=== PATIENT | female | born 1950 | race African-American/Black ===

== ENCOUNTER → 2018-01-23 | Day surgery (SDC) | payer MEDICARE ==
[2018-01-22 11:57] LABS: BASOPHILS % 0.5 % (0.0-1.0); EOSINOPHILS # (AUTO) 0.1 (0.0-0.4); EOSINOPHILS % 0.9 % (0.0-6.0); HEMATOCRIT 44.5 % (34.2-44.1); HEMOGLOBIN 13.6 g/dL (12.0-16.0); LYMPHOCYTES # (AUTO) 2.2 (1.0-3.2); LYMPHOCYTES % 33.3 % (18.0-39.1); MEAN CORPUSCULAR HEMOGLOBIN 27.3 pg (28-32); MEAN CORPUSCULAR HGB CONC 30.6 g/dL (31-35); MEAN CORPUSCULAR VOLUME 89.2 fL (81-99); MONOCYTES # (AUTO) 0.6 (0.2-0.8); MONOCYTES % 8.7 % (4.4-11.3); NEUTROPHILS # (AUTO) 3.7 (2.1-6.9); NEUTROPHILS % 56.4 % (38.7-80.0); PLATELET COUNT 257 x10e3/uL (140-360); RED BLOOD COUNT 4.99 x10e6/uL (3.6-5.1)
[2018-01-22 12:23] LABS: INR 0.93; PROTHROMBIN TIME 13.3 seconds (11.9-14.5)
[2018-01-22 12:24] LABS: PARTIAL THROMBOPLASTIN TIME 37.2 seconds (23.8-35.5)
--- NOTE | 2018-01-22 12:28 | Diagnostic Imaging Report ---
EXAMINATION: CHEST 2 VIEWS INDICATION: Chest pain. Preop for heart catheterization COMPARISON: None FINDINGS: TUBES and LINES: None. LUNGS: Lungs are well inflated. Mild chronic appearing changes in the lungs. There is no evidence of pneumonia or pulmonary edema. PLEURA: No pleural effusion or pneumothorax. HEART AND MEDIASTINUM: Cardiomegaly. Tortuous thoracic aorta. BONES AND SOFT TISSUES: No acute osseous lesion. Soft tissues are unremarkable. UPPER ABDOMEN: No free air under the diaphragm. IMPRESSION: Cardiomegaly with mild chronic appearing changes in the lungs. Signed by: Dr. Fidel Jordan M.D. on 01/22/2018 12:25 PM
[2018-01-22 12:37] LABS: ALANINE AMINOTRANSFERASE 19 IU/L (0-55); ALBUMIN 3.9 g/dL (3.5-5.0); ALKALINE PHOSPHATASE 121 IU/L (40-150); ANION GAP 16.6 mmol/L (8-16); BLOOD UREA NITROGEN 19 mg/dL (7-26); BUN/CREATININE RATIO 18 (6-25); CALCIUM 9.8 mg/dL (8.4-10.2); CARBON DIOXIDE 26 mmol/L (22-29); CHLORIDE 100 mmol/L (98-107); CREATININE, SERUM 1.04 mg/dL (0.57-1.11); EST GLOMERULAR FILTRATION RATE > 60 ML/MIN (60-); GLUCOSE 99 mg/dL (74-118); POTASSIUM 3.6 mmol/L (3.5-5.1); SODIUM 139 mmol/L (136-145)
[2018-01-23] VITALS (24 sets, daily range): BP systolic 105–163; BP diastolic 67–95
[~2018-01-23] VITALS: Ht 162.6 cm; Wt 82.6 kg
[~2018-01-23] MED LIST: AMLODIPINE BESYL5 MG PO; ASPIR 8181 MG PO; ATORVASTATIN CA20 MG PO; BENZOCAINE 20% SPR 60 ML CAN ONE; FENTANYL CITRATE/PF 100MCG/2 ML INJ ONE; FUROSEMIDE40 MG PO; HEPARIN SOD/SOD CHLORIDE 2,000 ML ONE; IOPAMIDOL 370 MG/ML 200 ML INFUS..BTL INJ ONE; LEVOTHYROXINE75 MCG PO; LIDOCAINE HCL 2% LOCAL 20 ML VIAL ONE; LIDOCAINE HCL 2% LOCAL INJ 5 ML SDV VIAL INJ ONE; LISINOPRIL10 MG PO; METOPROLOL SUCC50 MG PO; MIDAZOLAM HCL 2 MG/2 ML VIAL ONE; POTASSIUM CHLO20 ME1 PO; PROPOFOL IV EMULSION 10 MG/ML 20 ML VIAL ONE; SODIUM CHLORIDE 0.9% 1000ML 1,000 ML ONE; ULTRAM50 MG PO; VITAMIN D250000 UNIT PO; [UNRECOGNIZED DRUG - OTHER] PO
--- OUTSIDE RECORDS SUMMARY | 2018-01-23 07:27 | XMS REPORT ---
Author [facility] Address Unknown Phone Unavailable Care Team Providers Care Toolroom Clerk Name Role Phone FOSTER ZAOMRA Unavailable Unavailable Problems This patient has no known problems. Allergies, Adverse Reactions, Alerts This patient has no known allergies or adverse reactions. Medications This patient has no known medications. Results Test Description Test Time Test Comments Text Results Atomic Results Result Comments CHEST 2 VIEWS 2018-01-22 12:24:00 [facility] [address] [address] Patient Name: BATSHEVA LOPEZ MR #: [id number] : 1950 Age/Sex: 67/F Req #: [id number] Adm Physician: Ordered by: FOSTER ZAMORA MD Report #: [id number] Location: [facility] Room/Bed: Procedure: [id number] DX/CHEST 2 VIEWS Exam Date: 01/22/18 Exam Time: 1200 REPORT STATUS: Signed EXAMINATION: CHEST 2 VIEWS INDICATION: Chest p ain. Preop for heart catheterization COMPARISON: None FINDINGS: TUBES and LINES: None. LUNGS: Lungs are well inflated. Mild chronic appearing changes in the lungs. There is no evidence of pneumonia or pulmonary edema. PLEURA: No pleural effusion or pneumothorax. HEART AND MEDIASTINUM: Cardiomegaly. Tortuous thoracic aorta. BONES AND SOFT TISSUES: No acute osseous lesion. Soft tissues are unremarkable. UPPER ABDOMEN: No free air under the diaphragm. IMPRESSION: Cardiomegaly with mild chronic appearing changes in the lungs. Signed by: Dr. Fidel Jordan M.D. on 01/22/2018 12:25 PM Dictated By: FIDEL JORDAN MD, MD 1225 Transcribed By: ERNST on 01/22/18 1225 COPY TO: FOSTER ZAMORA MD
--- OUTSIDE RECORDS SUMMARY | 2018-01-23 07:27 | XMS REPORT | Continuity of Care Document ---
Author Author [facility] Interface Address Unknown Phone Unavailable Problems Problem Status Onset Date Classification Date Reported Comments Source Cellulitis 03/27/2017 Diagnosis 03/28/2017 [facility] Streptococcal sore throat 06/13/2016 Diagnosis 06/13/2016 [facility] Cough 06/13/2016 Diagnosis 06/13/2016 [facility] Medications Medication Details Route Status Patient Instructions Ordering Provider Order Date Source Tenormin atenolol Active [facility] Clindamycin 300 MG Oral Capsule clindamycin HCl 300 mg capsule Take 1 capsule every 6 hours by oral route as directed for 7 days. Active [facility] Furosemide 20 MG Oral Tablet [Lasix] Lasix 20 mg tablet Take 1 tablet every day by oral route. Active [facility] levothyroxine levothyroxine Active [facility] Amoxicillin 500 MG Oral Capsule amoxicillin 500 mg capsule Take 1 capsule every 12 hours by oral route for 10 days. Active [facility] 200 ACTUAT Albuterol 0.09 MG/ACTUAT Metered Dose Inhaler [ProAir] ProAir HFA 90 mcg/actuation aerosol inhaler 2 puffs every 4 hours while awake for 2-3 days, then as needed Active [facility] Dextromethorphan Hydrobromide 3 MG/ML / Promethazine Hydrochloride 1.25 MG/ML Oral Solution promethazine-DM 6.25 mg-15 mg/5 mL syrup Take 5 mL EVERY 4-6 HOURS by oral route as needed for cough Active [facility] Allergies, Adverse Reactions, Alerts Substance Category Reaction Severity Reaction type Status Date Reported Comments Source Codeine Facial swelling Moderate to Severe Allergy to substance 06/13/2016 [facility] Immunizations Immunization Date Given Site Status Last Updated Comments Source influenza, seasonal, injectable 03/19/2016 completed [facility] Results Order Name Results Value Reference Range Date Interpretation Comments Source Influenza A negative 06/13/2016 [facility] Influenza B negative 06/13/2016 [facility] RESULT positive 06/13/2016 [facility] SWAB LOCATION Left and Right tonsillar pillars 06/13/2016 [facility] Vital Signs Vital Sign Value Date Comments Source Diastolic (mm Hg) 75 03/27/2017 [facility] Height 64 03/27/2017 [facility] Systolic (mm Hg) 125 03/27/2017 [facility] Weight 185 03/27/2017 [facility] Diastolic (mm Hg) 70 06/13/2016 [facility] Height 64 06/13/2016 [facility] Systolic (mm Hg) 130 06/13/2016 [facility] Weight 185 06/13/2016 [facility] Encounters Location Location Details Encounter Type Encounter Number Reason For Visit Attending Provider ADM Date DC Date Status Source [place] - [facility] - [id number] PAUL PetersC: [address] [place] [address], Ph. [id number] Janelle Almeida 06/13/2016 [facility] [place] [id number] PAUL DeckerC: [address] [place] [address], Ph. [id number] Johny Colon 03/27/2017 [facility] Procedures Procedure Code Date Perfomer Comments Source Hysterectomy [facility] Thyroidectomy [facility]
--- OUTSIDE RECORDS SUMMARY | 2018-01-23 07:27 | XMS REPORT | Encounter Summary ---
Author Organization Unknown Address [address] [place] [address] Phone [phone] Care Team Providers Care File System Installer Name Role Phone Geovanna Rahman 3 [phone] Reason for Visit Medical Complaint Instructions 1. Cellulitis clindamycin HCl 300 mg capsule Discussion Note monitor for increase signs of infection. Keep area clean and dry. Avoid touching the area. OTC tylenol/ibuprofen as needed for fever/pain. Stay hydrated and rest. If symptoms do not improve after completion of antibiotic or worsens sooner, please follow up with PCP/UC/ER within 3 days or sooner if needed. pt states she is having a left heart catheter procedure tomorrow. Instructed for pt to notify/contact director of maternity services before taking the OTC tylenol/ibuprofen and prescription antibiotic. discussed treatment plan and medication use. patient verbalized understanding and agrees with the plan. Patient educational handouts: No information available. Plan of Care Reminders Provider Appointments None recorded. Lab None recorded. Referral None recorded. Procedures None recorded. Surgeries None recorded. Imaging None recorded. Medications Name Start Date atenolol clindamycin HCl 300 mg capsule Take 1 capsule every 6 hours by oral route as directed for 7 days. Lasix 20 mg tablet Take 1 tablet every day by oral route. levothyroxine Medications Administered None recorded. Vitals Height Weight BMI Blood Pressure 5 ft 4 in 185 lbs 31.8 kg/m2 125/75 mm[Hg] Lab Results None recorded. Allergies Code Code System Name Reaction Severity Status Onset 2670 RxNorm Codeine Facial Swelling Moderate to Severe Active Problems None recorded. Procedures Date Name Performed by Hysterectomy Information not available Thyroidectomy Information not available Vaccine List Vaccine Type influenza, seasonal, injectable 03/19/2016 Social History Smoking Status Never Smoker Past Encounters 03/27/2017 Cellulitis PAUL DeckerC: [address] [place] [address], Ph. History of Present Illness Kplx-Bptiqsu-Cpali-Skin Lesion-Bite 1 Reported By: Patient HPI: Location: face. Quality: not itchy, painful, dry, tender, red, single, localized, swollen; "sore". Severity: worsening. Duration: has noted for <1 week. Onset/Timing: gradual onset. Context: no new detergents or skin products, no one else with similar rash, bite/sting exposure. Aggravating factors: nothing makes it worse. Alleviating factors: nothing gives relief; rubbing alcohol on the area. Associated Symptoms: no fever/chills, no muscle aches, no headache, no nausea, no vomiting, no diarrhea, no urinary symptoms, cold symptoms Review of Systems:ROS as noted in the HPI Review of Systems Basic Reported By: Patient Physical Exam Adult Basic, Adult Female Complete Reported By: Patient Constitutional: General Appearance: healthy-appearing, well-nourished, well-developed. Level of Distress: NAD. Ambulation: ambulating normally Psychiatric: Mental Status: active and alert. Orientation: to time, to place, to person Lungs: Respiratory effort: no dyspnea, no tachypnea, no use of accessory muscles, no intercostal retractions. Auscultation: breath sounds normal Cardiovascular: Heart Auscultation: RRR, no murmurs Neurologic: Gait and Station: normal gait, normal station Skin: Inspection and palpation: lesion
--- OUTSIDE RECORDS SUMMARY | 2018-01-23 07:27 | XMS REPORT | Encounter Summary ---
Author Organization Unknown Address [address] [place] [address] Phone [phone] Care Team Providers Care Mail Reader Name Role Phone Geovanna Rahman 3 [phone] Reason for Visit Medical Complaint Instructions 1. Streptococcal sore throat strep throat: care instructions rapid strep group A, throat rapid flu (A+B) amoxicillin 500 mg capsule 2. Cough cough: care instructions promethazine-DM 6.25 mg-15 mg/5 mL syrup ProAir HFA 90 mcg/actuation aerosol inhaler Discussion Note take charge of your health provided to pt with education and questions answered Plan of Care Patient Instructions FU with PCP if symptoms worsening or not improving. Reminders Provider Appointments None recorded. Lab Rapid Strep Group a, Throat 06/13/2016 [facility] Rapid Flu (A+B) 06/13/2016 [facility] Referral None recorded. Procedures None recorded. Surgeries None recorded. Imaging None recorded. Medications Name Start Date amoxicillin 500 mg capsule Take 1 capsule every 12 hours by oral route for 10 days. atenolol Lasix 20 mg tablet Take 1 tablet every day by oral route. levothyroxine ProAir HFA 90 mcg/actuation aerosol inhaler 2 puffs every 4 hours while awake for 2-3 days, then as needed promethazine-DM 6.25 mg-15 mg/5 mL syrup Take 5 mL EVERY 4-6 HOURS by oral route as needed for cough Medications Administered None recorded. Vitals Height Weight BMI Blood Pressure 5 ft 4 in 185 lbs 31.8 130/70 Lab Results Date Name Result Description Value Range Status Rapid Flu (A+B) Influenza a negative Influenza B negative Rapid Strep Group a, Throat Result positive Swab Location Left and Right tonsillar pillars Allergies Name Reaction Severity Onset Codeine Facial Swelling Moderate to Severe Problems None recorded. Procedures Date Name Performed by Hysterectomy Information not available Thyroidectomy Information not available Vaccine List Vaccine Type influenza, seasonal, injectable 03/18/2016 Social History Smoking Status Never Smoker Past Encounters 06/13/2016 Streptococcal Sore Throat; Cough Janelle Almeida PA-C: [address] [place] [address], Ph. History of Present Illness Cwwzx-Agvfbrxbdn-Qzierae Reported By: Patient HPI: Location: throat. Quality: sore throat, nasal/sinus congestion, hacking cough, dry cough. Duration: 2days. Onset/Timing: sudden. 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 Modifying factors: OTC medication. Associated Symptoms: no sputum production, no shortness of breath, no wheezing, no change in number of pillows needed to sleep at night, no sweats, no significant weight gain, no significant weight loss, no morning cough, no sore throat, no vomiting, no diarrhea, no rash, no nausea, no fever, no headache, chest pain, fever, muscle aches Review of Systems Basic Reported By: Patient Constitutional: Constitutional: fever Eyes: Eyes: no eye complaints Fhug-Xscx-Fpmjv-Throat: Ears: no ear complaints. Nose: nose/sinus problems. Mouth/Throat: sore throat Cardiovascular: Cardiovascular: no chest pain, no shortness of breath, no known heart murmur Respiratory: Respiratory: no shortness of breath, cough, wheezing Musculoskeletal: Musculoskeletal: no muscle weakness, no arthralgias/joint pain, no back pain, muscle aches Neurologic: Neurologic: no loss of consciousness, no weakness, no numbness, no seizures, no dizziness, headache Physical Exam Adult Basic Reported By: Patient Constitutional: General Appearance: healthy-appearing, well-nourished, well-developed. Level of Distress: NAD. Ambulation: ambulating normally Psychiatric: Mental Status: active and alert. Orientation: to time, to place, to person Eyes: Lids and Conjunctivae: non-injected, no discharge, no pallor. Pupils: PERRLA. Corneas: grossly intact. EOM: EOMI. Lens: clear. Sclerae: non-icteric. Vision: acuity grossly intact Wlo-Jbiw-Txsao-Throat: Ears: no lesions on external ear, no outer ear tenderness, EACs clear, TMs clear. Hearing: no hearing loss. Nose: no lesions on external nose, nares patent, no septal deviation, nasal passages clear, sinus tenderness, post nasal drip; inflamed nasal turbinates. Lips, Teeth, and Gums: no mouth or lip ulcers, no bleeding gums, normal dentition. Oropharynx: moist mucous membranes, no exudates, tonsils not enlarged, erythema Neck: Neck: supple, trachea midline, no masses, FROM. Lymph Nodes: no supraclavicular LAD, anterior cervical LAD. Thyroid: no enlargement, non-tender, no nodules Lungs: Respiratory effort: no dyspnea, no tachypnea, no use of accessory muscles, no intercostal retractions. Auscultation: breath sounds normal Cardiovascular: Heart Auscultation: RRR, no murmurs Neurologic: Gait and Station: normal gait, normal station
--- NOTE | 2018-01-23 17:40 | Cardiology Report ---
REFERRING PHYSICIAN: Maurice Guerrero MD DATE OF STUDY: January 23, 2018 PROCEDURE: Transesophageal echocardiogram. INDICATIONS: Mitral regurgitation. DESCRIPTION OF PROCEDURE: After informed consent, patient was brought to the TE suite. Throat was sprayed with Cetacaine spray. The patient was anesthetized by the anesthesiologist. Transesophageal probe was passed without any difficulty and images were obtained in the usual fashion. Patient tolerated the procedure without any complications. REPORT: 1. Left ventricle: Normal size with depressed systolic function. Overall estimated ejection fraction about 40%. 2. Left atrium: Appears to be dilated. No spontaneous echo contrast or thrombus seen in the left atrium or left atrial appendage. 3. Right atrium: Normal size. 4. Right ventricle: Is of normal size with mildly depressed systolic function. 5. Mitral valve: Structurally normal intact valve excursion. No vegetations seen on mitral valve leaflets. Moderate to severe mitral regurgitation is noted. 6. Aortic valve: Mildly thickened without valve excursion. No vegetations are seen on the tricuspid valve leaflets. No aortic regurgitation or stenosis noted. 7. Tricuspid valve: Structurally normal with aortic valve excursion. No vegetation is seen on tricuspid valve leaflets. Trace tricuspid regurgitation is noted. 8. Pulmonic valve: The view seen appears to be normal intact valve excursion. No vegetations are noted on the pulmonic valve leaflets. 9. There is no pericardial effusion noted. 10. No left or right shunt is seen on color flow. No right or left shunt is seen on contrast injection across the interatrial septum. 11. Aorta in the views seen no significant atherosclerotic plaquing at the aorta is noted. CONCLUSIONS 1. Left ventricle normal size with depressed systolic function. 2. The overall estimated ejection fraction is about 40%. 3. Moderate to severe mitral regurgitation is noted. 4. Trace tricuspid regurgitation is noted. 5. No intracardiac thrombi or vegetation noted. 6. No shunts noted. 7. No pericardial effusion is seen. Job#: [id number]
--- NOTE | 2018-01-28 13:49 | Operative Report ---
DATE OF PROCEDURE: January 23, 2018 PROCEDURES PERFORMED: 1. Left heart catheterization. 2. Selective coronary angiogram. 3. Left ventriculogram. 4. Right heart catheterization. 5. Cardiac output. 6. Saturations. INDICATIONS: Mitral regurgitation. BLOOD LOSS: 5 mL. ANESTHESIA: 2% lidocaine for local anesthesia, fentanyl and Versed for conscious sedation. DESCRIPTION OF PROCEDURE: After informed consent, patient was brought to the cardiac catheterization laboratory and placed on the table. Both groins were painted and draped in a sterile fashion. Lidocaine was injected in the right groin for local anesthesia. Right femoral artery was accessed by Seldinger technique, and a 5-Salvadorean sheath was placed in the right femoral artery. Left main artery was cannulated using a JL4, 5-Salvadorean catheter. Coronary angiogram was performed, and images were obtained in multiple views. The right artery was cannulated using a 3DRC 5-[place]vadorean catheter. Coronary angiogram was performed, and images were obtained in multiple views. LV-gram was performed using a pigtail catheter. The right femoral vein was already cannulated using the Seldinger technique, and a 7-Salvadorean sheath was placed in the right femoral vein. A [place]-Poli catheter was advanced through the sheath into the right side of the heart to the wedge position. Pressures and cardiac output and saturations were obtained. The catheter was gradually withdrawn, and pressure and saturations were obtained in the pulmonary artery, right ventricle, right atrium, and inferior vena cava. Patient tolerated the procedure without any complications. REPORT: LEFT MAIN: A small vessel, normal caliber and is free of disease. LEFT ANTERIOR DESCENDING: Is of normal caliber and has mild luminal irregularities. LEFT CIRCUMFLEX: Normal caliber and has mild luminal irregularities. RIGHT CORONARY ARTERY: Normal caliber and has luminal irregularities. LV-GRAM: Diffuse hyperkinesis of the left ventricle is noted. Overall ejection fraction is 40%. There was 3 to 4+ MR. PRESSURES: Aortic pressure is 147/65. LV pressure is 151/19. LVEDP is 31. Right atrial pressure is 20. Right ventricular pressure is 84/15. Pulmonary artery pressure is 32/36. Pulmonary capillary wedge pressure is 38. Cardiac output is 3.37. Cardiac index is 1.79. SATURATIONS: In the right atrium was 48%, right ventricle was 50%, pulmonary artery was 54%,, pulmonary capillary wedge saturation was 86%, inferior vena cava was 64%, FA saturation was 97%. Hemoglobin was 13.6. IMPRESSION: 1. Moderate to severe mitral regurgitation. 2. Moderate pulmonary hypertension. PLAN: Possible mitral valve replacement. Job#: [id number]
== END | disposition home or self-care (01) ==
LOC: CATH LAB 07:24
DX: I34.0 Nonrheumatic mitral (valve) insufficiency (principal); I07.1 Rheumatic tricuspid insufficiency; R07.2 Precordial pain; I11.0 Hypertensive heart disease with heart failure; I50.32 Chronic diastolic (congestive) heart failure; I27.20 Pulmonary hypertension, unspecified; E78.5 Hyperlipidemia, unspecified; E03.9 Hypothyroidism, unspecified; Z88.6 Allergy status to analgesic agent; Z01.810 Encounter for preprocedural cardiovascular examination; Z01.812 Encounter for preprocedural laboratory examination; Z01.818 Encounter for other preprocedural examination; Z79.82 Long term (current) use of aspirin; Z68.32 Body mass index [BMI] 32.0-32.9, adult; Z82.49 Family history of ischemic heart disease and other diseases of the circulatory system; Z82.3 Family history of stroke
CPT/HCPCS: 36415; 71046; 80053; 85025; 85610; 85730; 93005; 93312; 93320; 93325; 93460; C1766; J2001 ×2; J2250; J2704; J7030; Q9967

== ENCOUNTER 2018-03-10 08:37 | Observation (INO) | payer BC, MEDICARE ==
[~2018-03-10] VITALS: Ht 162.6 cm; Wt 91.6 kg
[~2018-03-10 08:37] MED LIST changes: -BENZOCAINE 20% SPR 60 ML CAN ONE; -FENTANYL CITRATE/PF 100MCG/2 ML INJ ONE; -HEPARIN SOD/SOD CHLORIDE 2,000 ML ONE; -IOPAMIDOL 370 MG/ML 200 ML INFUS..BTL INJ ONE; -LIDOCAINE HCL 2% LOCAL 20 ML VIAL ONE; -LIDOCAINE HCL 2% LOCAL INJ 5 ML SDV VIAL INJ ONE; -MIDAZOLAM HCL 2 MG/2 ML VIAL ONE; -PROPOFOL IV EMULSION 10 MG/ML 20 ML VIAL ONE; -SODIUM CHLORIDE 0.9% 1000ML 1,000 ML ONE; -ULTRAM50 MG PO
--- OUTSIDE RECORDS SUMMARY | 2018-03-10 08:40 | XMS REPORT | Clinical Summary ---
Author Author [facility]ud [facility] Organization [facility] Address Unknown Phone Unavailable Care Team Providers Care Log Truck Driver Name Role Phone Asked, No Pcp PCP Unavailable Allergies Comments Active Allergy Reactions Severity Noted Date Codeine Anaphylaxis, High 02/21/2018 Swelling Medications End Date Status Medication Sig Dispensed Refills Start Date Active aspirin (ECOTRIN) 81 MG Take 81 mg by 0 enteric coated tablet mouth daily. Active atorvastatin (LIPITOR) 40 Take 40 mg by 0 MG tablet mouth daily. Active ergocalciferol, vitamin Take 5,000 mg 0 D2, (VITAMIN D2 ORAL) by mouth daily. Active ipratropium-albuterol Inhale 2 0 (COMBIVENT RESPIMAT) puffs 4 20-100 mcg/actuation mist (four) times inhaler a day. Active levothyroxine (SYNTHROID, Take 75 mcg 0 LEVOXYL) 75 mcg tablet by mouth every morning. Active amLODIPine (NORVASC) 5 mg Take 5 mg by 0 tablet mouth daily. 04/04/2018 Active metoprolol tartrate Take 1 tablet 60 tablet 0 (LOPRESSOR) 25 mg tablet (25 mg total) 8 by mouth 2 (two) times a day for 30 days. 03/18/2018 Active HYDROcodone-acetaminophen Take 1 to 2 30 tablet 0 (NORCO) 5-325 mg per tabs every 6 8 tablet hours prn pain. 04/04/2018 Active furosemide (LASIX) 40 mg Take 1 tablet 30 tablet 0 tablet (40 mg total) 8 by mouth daily for 30 days. Active potassium chloride Take 2 60 capsule 0 (MICRO-K) 10 MEQ CR capsules (20 8 capsule mEq total) by mouth daily. 03/05/2018 Discontinued furosemide (LASIX) 40 mg Take 40 mg by 0 tablet mouth 2 (two) times a day. 03/05/2018 Discontinued POTASSIUM ORAL Take 20 mEq 0 by mouth 2 (two) times a day. 03/05/2018 Discontinued metoprolol succinate XL Take 100 mg 0 (TOPROL-XL) 100 mg 24 hr by mouth tablet daily. 03/05/2018 Discontinued losartan (COZAAR) 50 MG Take 50 mg by 0 tablet mouth daily. 03/05/2018 Discontinued ibuprofen (ADVIL,MOTRIN) Take 200 mg 0 200 MG tablet by mouth every 6 (six) hours as needed for mild pain. Active Problems Problem Noted Date Mitral valve stenosis 02/25/2018 Encounters Care Team Description Date Type Specialty Bin Dc MD MITRAL VALVE REPLACEMENT (EPIC 31 MM VALVE) 02/25/2018 Surgery Cardiothoracic Surgery Clair Fisher APRN 02/25/2018 Anesthesia Cardiothoracic Surgery Event Bin Dc MD Non-rheumatic mitral valve stenosis (Primary Dx); Mitral stenosis 02/25/2018 Hospital Cardiology - Encounter 03/05/2018 Ami Avila RN 02/22/2018 Documentation Cardiovascular Bin Dc MD 02/21/2018 Hospital Radiology Encounter Clair Fisher, Bin Lopez MD 02/21/2018 Hospital Pulmonology Encounter Bin Dc MD Pre-op testing (Primary Dx); Preop cardiovascular exam; Preop pulmonary/respiratory exam; Preop examination 02/21/2018 Pre-Admit Pre-Admission Testing Testing Appointment Bin Dc MD Preop cardiovascular exam (Primary Dx) 02/21/2018 Transcribe Access Orders after 03/09/2017 Social History Date Tobacco Use Types Packs/Day Years Used Never Smoker Smokeless Tobacco: Never Used Alcohol Use Drinks/Week oz/Week Comments Yes social Alcohol Habits Answer Date Recorded How often do you have a drink containing alcohol? Never 02/21/2018 How many drinks containing alcohol do you have on Not asked a typical day when you are drinking? How often do you have six or more drinks on one Not asked occasion? Sex Assigned at Date Recorded Not on file Industry Job Start Date Occupation Not on file Not on file Not on file Travel End Travel History Travel Start No recent travel history available. Last Filed Vital Signs Time Taken Vital Sign Reading 03/05/2018 11:37 AM ELEVATOR REPAIR MECHANIC Blood Pressure 112/53 03/05/2018 11:37 AM ELEVATOR REPAIR MECHANIC Pulse 79 03/05/2018 11:37 AM ELEVATOR REPAIR MECHANIC Temperature 36.4 C (97.6 F) 03/05/2018 11:37 AM ELEVATOR REPAIR MECHANIC Respiratory Rate 17 03/05/2018 11:37 AM ELEVATOR REPAIR MECHANIC Oxygen Saturation 92% - Inhaled Oxygen - Concentration 03/05/2018 4:31 AM ELEVATOR REPAIR MECHANIC Weight 91.8 kg (202 lb 4.8 oz) 02/25/2018 10:58 AM ELEVATOR REPAIR MECHANIC Height 162.6 cm (5' 4") 03/05/2018 4:31 AM ELEVATOR REPAIR MECHANIC Body Mass Index 34.72 Plan of Treatment Health Maintenance Due Date Last Done Comments CERVICAL CANCER SCREENING 1973 BREAST CANCER SCREENING 2002 COLON CANCER SCREENING 2002 SHINGLES VACCINES ( of 2002 2) PNEUMOCOCCAL 2017 POLYSACCHARIDE VACCINE AGE 65 AND OVER PNEUMOCOCCAL-13 2017 INFLUENZA VACCINE 10/17/2017 03/19/2016 Implants Device Identifier Shelf Expiration Date Model / Serial / Lot Implanted Type [place] Manufactur [place] 6500F / / Lead Pace Jimy Mycrdl Unipol Tmpry Cardiac N/A: N/A [employer] Streamline - [id number] Pacing [place] - Implanted: 02/25/2018 (Quantity not Leads or CARDIAC on file) Electrodes SRGRY or Accessorie s 6500F / / Lead Pace Jimy Mycrdl Unipol Tmpry Cardiac N/A: N/A [employer] Streamline - [id number] Pacing [place] - Implanted: 02/25/2018 (Quantity not Leads or CARDIAC on file) Electrodes SRGRY or Accessorie s 6500F / / Lead Pace Jimy Mycrdl Unipol Tmpry Cardiac N/A: N/A [employer] Streamline - [id number] Pacing [place] - Implanted: 02/25/2018 (Quantity not Leads or CARDIAC on file) Electrodes SRGRY or Accessorie s 04/17/2021 [id number] [id number] 00 / [id number] / [id number] Valve Mitral Stntd Tiss Annls W/ Cardiovasc N/A: N/A [facility] Linx Ac Tech 31mm Epic - [id number] ular STRUCTURAL Implanted: 02/25/2018 (Quantity not Implants HEART on file) [id number] / / Clip Shobha Barillas Hemoclip Plus W/ Medical N/A: N/A TELEFLEX Tape Ti Lg - [id number] Clips for MEDICAL Implanted: 02/25/2018 (Quantity not Internal on file) Use 08 [id number] / / Implant Strnl Zipfix W/ Ndl Peek - Surgical N/A: N/A SYNTHES [id number] Implants; MAXIOFACIA Implanted: 02/25/2018 (Quantity not Expanders; L IMPLANT on file) Extenders; Surgical Wires 11/13/2022 [id number] / / [id number] [place] Perph Vasclr Ptfe 1.2x10cm Vascular N/A: N/A BARD 1.65mm - [id number] Graft PERIPHERAL Implanted: 02/25/2018 (Quantity not VASCULAR on file) 11/13/2022 [id number] / / [id number] [place] Perph Vasclr Ptfe 1.2x10cm Vascular N/A: N/A BARD 1.65mm - [id number] Graft PERIPHERAL Implanted: 02/25/2018 (Quantity not VASCULAR on file) Procedures Comments Procedure Name Priority Date/Time Associated Diagnosis HC COMPLETE BLD COUNT Routine 03/05/2018 W/AUTO DIFF 5:24 AM ELEVATOR REPAIR MECHANIC ESTIMATED GFR Routine 03/05/2018 4:00 AM ELEVATOR REPAIR MECHANIC IONIZED CALCIUM Routine 03/05/2018 4:00 AM ELEVATOR REPAIR MECHANIC PHOSPHORUS LEVEL Routine 03/05/2018 4:00 AM ELEVATOR REPAIR MECHANIC MAGNESIUM LEVEL Routine 03/05/2018 4:00 AM ELEVATOR REPAIR MECHANIC COMPREHENSIVE METABOLIC Routine 03/05/2018 PANEL 4:00 AM ELEVATOR REPAIR MECHANIC HC COMPLETE BLD COUNT Routine 03/04/2018 W/AUTO DIFF 8:30 AM ELEVATOR REPAIR MECHANIC ESTIMATED GFR Routine 03/04/2018 4:00 AM ELEVATOR REPAIR MECHANIC IONIZED CALCIUM Routine 03/04/2018 4:00 AM ELEVATOR REPAIR MECHANIC PHOSPHORUS LEVEL Routine 03/04/2018 4:00 AM ELEVATOR REPAIR MECHANIC MAGNESIUM LEVEL Routine 03/04/2018 4:00 AM ELEVATOR REPAIR MECHANIC COMPREHENSIVE METABOLIC Routine 03/04/2018 PANEL 4:00 AM ELEVATOR REPAIR MECHANIC POC GLUCOSE Routine 03/03/2018 8:15 AM ELEVATOR REPAIR MECHANIC POC GLUCOSE Routine 03/02/2018 8:25 PM ELEVATOR REPAIR MECHANIC POC GLUCOSE Routine 03/02/2018 5:06 PM ELEVATOR REPAIR MECHANIC POC GLUCOSE Routine 03/02/2018 11:53 AM ELEVATOR REPAIR MECHANIC POC GLUCOSE Routine 03/02/2018 8:00 AM ELEVATOR REPAIR MECHANIC CBC HEMOGRAM Routine 03/02/2018 5:45 AM ELEVATOR REPAIR MECHANIC ESTIMATED GFR Routine 03/02/2018 5:40 AM ELEVATOR REPAIR MECHANIC BASIC METABOLIC PANEL Routine 03/02/2018 5:40 AM ELEVATOR REPAIR MECHANIC POC GLUCOSE Routine 03/01/2018 9:03 PM ELEVATOR REPAIR MECHANIC ECHOCARDIOGRAM 2D Routine 03/01/2018 COMPLETE W MMODE SPECTRAL 3:57 PM ELEVATOR REPAIR MECHANIC COLOR DOPPLER ([id number]) POC GLUCOSE Routine 03/01/2018 12:24 PM ELEVATOR REPAIR MECHANIC ESTIMATED GFR Routine 03/01/2018 2:24 AM ELEVATOR REPAIR MECHANIC BASIC METABOLIC PANEL Routine 03/01/2018 2:24 AM ELEVATOR REPAIR MECHANIC HC COMPLETE BLD COUNT Routine 03/01/2018 W/AUTO DIFF 2:10 AM ELEVATOR REPAIR MECHANIC POC GLUCOSE Routine 02/28/2018 9:42 PM ELEVATOR REPAIR MECHANIC POC GLUCOSE Routine 02/28/2018 6:02 PM ELEVATOR REPAIR MECHANIC POC GLUCOSE Routine 02/28/2018 12:56 PM ELEVATOR REPAIR MECHANIC POC GLUCOSE Routine 02/28/2018 7:41 AM ELEVATOR REPAIR MECHANIC HC COMPLETE BLD COUNT Routine 02/28/2018 W/AUTO DIFF 4:58 AM ELEVATOR REPAIR MECHANIC ESTIMATED GFR Routine 02/28/2018 4:00 AM ELEVATOR REPAIR MECHANIC MAGNESIUM LEVEL Routine 02/28/2018 4:00 AM ELEVATOR REPAIR MECHANIC BASIC METABOLIC PANEL Routine 02/28/2018 4:00 AM ELEVATOR REPAIR MECHANIC POC GLUCOSE Routine 02/27/2018 8:49 PM ELEVATOR REPAIR MECHANIC POC GLUCOSE Routine 02/27/2018 5:49 PM ELEVATOR REPAIR MECHANIC US RENAL Routine 02/27/2018 5:20 PM ELEVATOR REPAIR MECHANIC SODIUM LEVEL, URINE, Routine 02/27/2018 TIMED 3:30 PM ELEVATOR REPAIR MECHANIC CREATININE LEVEL, URINE, Routine 02/27/2018 TIMED 3:30 PM ELEVATOR REPAIR MECHANIC UREA NITROGEN, URINE, Routine 02/27/2018 TIMED 3:30 PM ELEVATOR REPAIR MECHANIC URINE EOSINOPHILS Routine 02/27/2018 3:30 PM ELEVATOR REPAIR MECHANIC URINALYSIS SCREEN AND Routine 02/27/2018 MICROSCOPY, WITH REFLEX 3:30 PM ELEVATOR REPAIR MECHANIC TO CULTURE GRAM STAIN Routine 02/27/2018 3:30 PM ELEVATOR REPAIR MECHANIC URINE CULTURE Routine 02/27/2018 3:30 PM ELEVATOR REPAIR MECHANIC XR CHEST 1 VW PORTABLE Routine 02/27/2018 3:00 PM ELEVATOR REPAIR MECHANIC ESTIMATED GFR Routine 02/27/2018 1:02 PM ELEVATOR REPAIR MECHANIC BASIC METABOLIC PANEL Routine 02/27/2018 1:02 PM ELEVATOR REPAIR MECHANIC POC GLUCOSE Routine 02/27/2018 12:04 PM ELEVATOR REPAIR MECHANIC ANESTHESIA TELLY Routine 02/27/2018 9:12 AM ELEVATOR REPAIR MECHANIC Procedure Note - Cinthia Garcia CRNA - 02/27/2018 9:12 AM ELEVATOR REPAIR MECHANIC Procedure Performed: TELLY Start Time: 02/25/2018 3:15 PM End Time: 02/25/2018 3:45 PM Preanesth esia Checklist: Patient identified , IV assessed, risks and benefits discussed, monitors and equipment assessed, procedure being performed at surgeon's request, anesthesia consent obtained. General Procedure Informatio n Diagnostic Indication s for Echo: assessment of surgical repair and hemodynami c monitoring Physician Requesting Echo: Bin Dc MD Location performed: OR Intubated Bite block placed Heart visualized Probe Insertion: Easy Probe Type: Multiplane Modalities : Color flow mapping, pulse wave Doppler, continuous wave Doppler and contrast Echocardi ographic and Doppler Measuremen ts Ventricle s Right Ventricle: Cavity size dilated. Hypertroph y not present. Thrombus not present. Global function mildly impaired. Ejection Fraction 45%. Left Ventricle: Cavity size normal. Hypertroph y present. Thrombus not present. Global Function mildly impaired. Ejection Fraction 40%. Ventricul ar Regional Function: 1- Basal Anterosept al: hypokineti c 2- Basal Anterior: hypokineti c 3- Basal Anterolate ral: hypokineti c 4- Basal Inferolate ral: normal 5- Basal Inferior: normal 6- Basal Inferosept al: normal 7- Mid Anterosept al: hypokineti c 8- Mid Anterior: hypokineti c 9- Mid Anterolate ral: hypokineti c 10- Mid Inferolate ral: normal 11- Mid Inferior: normal 12- Mid Inferosept al: normal 13- Apical Anterior: normal 14- Apical Lateral: normal 15- Apical Inferior: normal 16- Apical Septal: normal 17- [place]: normal Valves Aortic Valve: Annulus normal. Stenosis not present. Regurgitat ion absent. Leaflets normal. Leaflet motions normal. Mitral Valve: Annulus dilated. Stenosis not present. Regurgitat ion +3. Leaflets thickened. Leaflet motions normal. Tricuspid Valve: Annulus normal. Stenosis not present. Regurgitat ion +2. Leaflets normal. Leaflet motions normal. Pulmonic Valve: Annulus normal. Stenosis not present. Regurgitat ion absent. Aorta Ascending Aorta: Size normal. Dissection not present. Plaque thickness less than 3 mm. Mobile plaque not present. Aortic Arch: Size normal. Dissection not present. Plaque thickness less than 3 mm. Mobile plaque not present. Descending Aorta: Size normal. Dissection not present. Plaque thickness less than 3 mm. Mobile plaque not present. Atria Right Atrium: Size normal. Spontaneou s echo contrast not present. Thrombus not present. Tumor not present. Device not present. Left Atrium: Size dilated. Spontaneou s echo contrast not present. Thrombus not present. Tumor not present. Device not present. Left atrial appendage normal. Septa Atrial Septum: Intra-atri al septal morphology lipomatous hypertroph y. Ventricul ar Septum: Intra-vent ricular septum morphology normal. Other Findings Pericardiu m: normal Pleural Effusion: none Pulmonary Arteries: dilated Pulmonary Venous Flow: blunted (decreased ) systolic flow Anesthesi a Informatio n Performed Personally Anesthesio logist: Edgardo Mcguire Jr., MD Echocardio gram Comments: Post: Well-seat ed 31mm Epic valve, no PVL, no central leaks. RV-mildly depressed systolic function improved on dobutamine . LVEF 45-50% POC GLUCOSE Routine 02/27/2018 7:25 AM ELEVATOR REPAIR MECHANIC CBC HEMOGRAM Routine 02/27/2018 5:00 AM ELEVATOR REPAIR MECHANIC ESTIMATED GFR Routine 02/27/2018 12:00 AM ELEVATOR REPAIR MECHANIC PHOSPHORUS LEVEL Routine 02/27/2018 12:00 AM ELEVATOR REPAIR MECHANIC IONIZED CALCIUM Routine 02/27/2018 12:00 AM ELEVATOR REPAIR MECHANIC MAGNESIUM LEVEL Routine 02/27/2018 12:00 AM ELEVATOR REPAIR MECHANIC BASIC METABOLIC PANEL Routine 02/27/2018 12:00 AM ELEVATOR REPAIR MECHANIC POC GLUCOSE Routine 02/26/2018 9:04 PM ELEVATOR REPAIR MECHANIC POC GLUCOSE Routine 02/26/2018 4:13 PM ELEVATOR REPAIR MECHANIC POC GLUCOSE Routine 02/26/2018 11:42 AM ELEVATOR REPAIR MECHANIC POC GLUCOSE Routine 02/26/2018 10:11 AM ELEVATOR REPAIR MECHANIC XR CHEST 1 VW PORTABLE STAT 02/26/2018 10:10 AM ELEVATOR REPAIR MECHANIC LINE/DRAIN REMOVAL Routine 02/26/2018 Non-rheumatic mitral 9:48 AM ELEVATOR REPAIR MECHANIC valve stenosis POC GLUCOSE Routine 02/26/2018 8:00 AM ELEVATOR REPAIR MECHANIC POC GLUCOSE Routine 02/26/2018 6:30 AM ELEVATOR REPAIR MECHANIC POC GLUCOSE Routine 02/26/2018 5:09 AM ELEVATOR REPAIR MECHANIC ECG 12-LEAD Routine 02/26/2018 4:55 AM ELEVATOR REPAIR MECHANIC POC GLUCOSE Routine 02/26/2018 4:02 AM ELEVATOR REPAIR MECHANIC POC GLUCOSE Routine 02/26/2018 3:03 AM ELEVATOR REPAIR MECHANIC MAGNESIUM LEVEL Routine 02/26/2018 2:30 AM ELEVATOR REPAIR MECHANIC ESTIMATED GFR Routine 02/26/2018 2:30 AM ELEVATOR REPAIR MECHANIC HC COMPLETE BLD COUNT Routine 02/26/2018 W/AUTO DIFF 2:30 AM ELEVATOR REPAIR MECHANIC BASIC METABOLIC PANEL Routine 02/26/2018 2:30 AM ELEVATOR REPAIR MECHANIC POC GLUCOSE Routine 02/26/2018 1:48 AM ELEVATOR REPAIR MECHANIC POC GLUCOSE Routine 02/26/2018 1:01 AM ELEVATOR REPAIR MECHANIC POC GLUCOSE Routine 02/25/2018 11:44 PM ELEVATOR REPAIR MECHANIC POC GLUCOSE Routine 02/25/2018 11:07 PM ELEVATOR REPAIR MECHANIC POC GLUCOSE Routine 02/25/2018 10:15 PM ELEVATOR REPAIR MECHANIC ECG 12-LEAD Routine 02/25/2018 9:29 PM ELEVATOR REPAIR MECHANIC XR CHEST 1 VW PORTABLE Routine 02/25/2018 9:21 PM ELEVATOR REPAIR MECHANIC PARTIAL THROMBOPLASTIN Routine 02/25/2018 TIME (PTT) 8:53 PM ELEVATOR REPAIR MECHANIC PROTHROMBIN TIME WITH INR Routine 02/25/2018 8:53 PM ELEVATOR REPAIR MECHANIC HC COMPLETE BLD COUNT Routine 02/25/2018 W/AUTO DIFF 8:53 PM ELEVATOR REPAIR MECHANIC POC GLUCOSE Routine 02/25/2018 8:52 PM ELEVATOR REPAIR MECHANIC IONIZED CALCIUM, ARTERIAL Routine 02/25/2018 8:51 PM ELEVATOR REPAIR MECHANIC ARTERIAL BLOOD GAS Routine 02/25/2018 8:51 PM ELEVATOR REPAIR MECHANIC ESTIMATED GFR Routine 02/25/2018 8:44 PM ELEVATOR REPAIR MECHANIC PHOSPHORUS LEVEL Routine 02/25/2018 8:44 PM ELEVATOR REPAIR MECHANIC MAGNESIUM LEVEL Routine 02/25/2018 8:44 PM ELEVATOR REPAIR MECHANIC BASIC METABOLIC PANEL Routine 02/25/2018 8:44 PM ELEVATOR REPAIR MECHANIC TRANSFUSE RED BLOOD CELLS Routine 02/25/2018 8:13 PM ELEVATOR REPAIR MECHANIC XR CHEST 2 VW STAT 02/25/2018 7:46 PM ELEVATOR REPAIR MECHANIC PLATELET COUNT Routine 02/25/2018 7:10 PM ELEVATOR REPAIR MECHANIC FIBRINOGEN Routine 02/25/2018 7:10 PM ELEVATOR REPAIR MECHANIC PROTHROMBIN TIME WITH INR Routine 02/25/2018 7:10 PM ELEVATOR REPAIR MECHANIC GLUCOSE LEVEL, SYRINGE Routine 02/25/2018 7:10 PM ELEVATOR REPAIR MECHANIC IONIZED CALCIUM, ARTERIAL Routine 02/25/2018 7:10 PM ELEVATOR REPAIR MECHANIC HEMOGLOBIN, SYRINGE Routine 02/25/2018 7:10 PM ELEVATOR REPAIR MECHANIC POTASSIUM, SYRINGE Routine 02/25/2018 7:10 PM ELEVATOR REPAIR MECHANIC ARTERIAL BLOOD GAS, Routine 02/25/2018 CORRECTED 7:10 PM ELEVATOR REPAIR MECHANIC SODIUM LEVEL, SYRINGE Routine 02/25/2018 7:10 PM ELEVATOR REPAIR MECHANIC ACTIVATED CLOTTING TIME Routine 02/25/2018 6:36 PM ELEVATOR REPAIR MECHANIC ACTIVATED CLOTTING TIME Routine 02/25/2018 5:47 PM ELEVATOR REPAIR MECHANIC GLUCOSE LEVEL, SYRINGE STAT 02/25/2018 5:45 PM ELEVATOR REPAIR MECHANIC IONIZED CALCIUM, ARTERIAL STAT 02/25/2018 5:45 PM ELEVATOR REPAIR MECHANIC HEMOGLOBIN, SYRINGE STAT 02/25/2018 5:45 PM ELEVATOR REPAIR MECHANIC SODIUM LEVEL, SYRINGE STAT 02/25/2018 5:45 PM ELEVATOR REPAIR MECHANIC POTASSIUM, SYRINGE STAT 02/25/2018 5:45 PM ELEVATOR REPAIR MECHANIC ARTERIAL BLOOD GAS, STAT 02/25/2018 CORRECTED 5:45 PM ELEVATOR REPAIR MECHANIC ACTIVATED CLOTTING TIME Routine 02/25/2018 5:16 PM ELEVATOR REPAIR MECHANIC GLUCOSE LEVEL, SYRINGE STAT 02/25/2018 5:03 PM ELEVATOR REPAIR MECHANIC IONIZED CALCIUM, ARTERIAL STAT 02/25/2018 5:03 PM ELEVATOR REPAIR MECHANIC HEMOGLOBIN, SYRINGE STAT 02/25/2018 5:03 PM ELEVATOR REPAIR MECHANIC POTASSIUM, SYRINGE STAT 02/25/2018 5:03 PM ELEVATOR REPAIR MECHANIC ARTERIAL BLOOD GAS, STAT 02/25/2018 CORRECTED 5:03 PM ELEVATOR REPAIR MECHANIC SODIUM LEVEL, SYRINGE STAT 02/25/2018 5:03 PM ELEVATOR REPAIR MECHANIC ACTIVATED CLOTTING TIME Routine 02/25/2018 4:59 PM ELEVATOR REPAIR MECHANIC GLUCOSE LEVEL, SYRINGE STAT 02/25/2018 4:30 PM ELEVATOR REPAIR MECHANIC IONIZED CALCIUM, ARTERIAL STAT 02/25/2018 4:30 PM ELEVATOR REPAIR MECHANIC HEMOGLOBIN, SYRINGE STAT 02/25/2018 4:30 PM ELEVATOR REPAIR MECHANIC POTASSIUM, SYRINGE STAT 02/25/2018 4:30 PM ELEVATOR REPAIR MECHANIC SODIUM LEVEL, SYRINGE STAT 02/25/2018 4:30 PM ELEVATOR REPAIR MECHANIC ARTERIAL BLOOD GAS, STAT 02/25/2018 CORRECTED 4:30 PM ELEVATOR REPAIR MECHANIC ACTIVATED CLOTTING TIME Routine 02/25/2018 4:25 PM ELEVATOR REPAIR MECHANIC TRANSFUSE RED BLOOD CELLS Routine 02/25/2018 4:22 PM ELEVATOR REPAIR MECHANIC GLUCOSE LEVEL, SYRINGE STAT 02/25/2018 4:00 PM ELEVATOR REPAIR MECHANIC IONIZED CALCIUM, ARTERIAL STAT 02/25/2018 4:00 PM ELEVATOR REPAIR MECHANIC HEMOGLOBIN, SYRINGE STAT 02/25/2018 4:00 PM ELEVATOR REPAIR MECHANIC SODIUM LEVEL, SYRINGE STAT 02/25/2018 4:00 PM ELEVATOR REPAIR MECHANIC POTASSIUM, SYRINGE STAT 02/25/2018 4:00 PM ELEVATOR REPAIR MECHANIC ARTERIAL BLOOD GAS, STAT 02/25/2018 CORRECTED 4:00 PM ELEVATOR REPAIR MECHANIC ACTIVATED CLOTTING TIME Routine 02/25/2018 3:57 PM ELEVATOR REPAIR MECHANIC ACTIVATED CLOTTING TIME Routine 02/25/2018 3:32 PM ELEVATOR REPAIR MECHANIC GA AN ELECTIVE Routine 02/25/2018 ENDOTRACHEAL AIRWAY 3:27 PM ELEVATOR REPAIR MECHANIC Procedure Note - Evette Cruz - 02/25/2018 3:27 PM ELEVATOR REPAIR MECHANIC Airway Date/Time: 02/25/2018 2:15 PM Performed by: Seema Deshpande MD Authorized by: Seema Deshpande MD Location: OR Urgency: Elective Difficult Airway: No Preoxygena aniyah with 100% O2: Yes C-spine Precaution s Maintained Throughout : Yes Mask Ventilatio n: Easy mask Final Airway Type: Endotrache al airway Final Endotrache al Airway: ETT Cuffed: Yes Technique Used: Direct laryngosco py Devices/Me thods Used in Placement: Intubatin g stylet Insertion Site: Oral Blade Type: [place] Laryngosco pe Blade/Vide olaryngosc ope Blade Size: 2 ETT Size (mm): 7.0 Cuff at minimum occlusion pressure: Yes Measured from: Lips ETT to Lips (cm): 21 Placement Verified by: CO2 detection, direct visualizat ion and equal breath sounds Laryngosco pic view: Grade I - full view of glottis Rapid Sequence Induction (RSI): No Modified RSI: No Number of Attempts at Approach: 1 GLUCOSE LEVEL, SYRINGE STAT 02/25/2018 3:08 PM ELEVATOR REPAIR MECHANIC IONIZED CALCIUM, ARTERIAL STAT 02/25/2018 3:08 PM ELEVATOR REPAIR MECHANIC HEMOGLOBIN, SYRINGE STAT 02/25/2018 3:08 PM ELEVATOR REPAIR MECHANIC POTASSIUM, SYRINGE STAT 02/25/2018 3:08 PM ELEVATOR REPAIR MECHANIC ARTERIAL BLOOD GAS, STAT 02/25/2018 CORRECTED 3:08 PM ELEVATOR REPAIR MECHANIC SODIUM LEVEL, SYRINGE STAT 02/25/2018 3:08 PM ELEVATOR REPAIR MECHANIC PA CATHETER Routine 02/25/2018 3:07 PM ELEVATOR REPAIR MECHANIC Procedure Note - Seema Deshpande MD - 02/25/2018 3:07 PM ELEVATOR REPAIR MECHANIC PA catheter Performed by: Seema Deshpande MD Authorized by: Seema Deshpande MD Patient Location: OR Start Time: 02/25/2018 2:51 PM End Time: 02/25/2018 2:58 PM Staff: Robert chacon: Seema Deshpande MD Resident/C RNA/AA: Evette Cruz Performed by: Robert chacon Preprocedu re: patient identified , IV checked, site and side verified, risks and benefits discussed, procedure verified, surgical consent complete, patient position confirmed, monitors and equipment checked and pre-op evaluation complete MSBT: antiseptic used, all elements of maximal sterile barrier technique followed, hand hygiene performed, cap/gown used by other personnel and solutions labeled Procedure details: PA Catheter Type: AMUSEMENT RIDE INSPECTOR and oximetric PA Catheter Size: 9 PA Catheter Side: Right PA Catheter Site: Internal jugular PA Catheter placed: PA Catheter placed without difficulty Waveform: PA Catheter wave confirmed Post-proc edure: No arrhythmia : No arrhythmia s noted Patient tolerance: Patient tolerated the procedure well with no immediate complicati ons CENTRAL LINE Routine 02/25/2018 3:07 PM ELEVATOR REPAIR MECHANIC Procedure Note - Seema Deshpande MD - 02/25/2018 3:07 PM ELEVATOR REPAIR MECHANIC Central line Performed by: Seema Deshpande MD Authorized by: Seema Deshpande MD Patient Location: OR Start Time: 02/25/2018 2:40 PM End Time: 02/25/2018 2:47 PM Staff: Robert chacon: Seema Deshpande MD Resident/C HALLE/AA: Evette Cruz Performed by: Robert chacon Preprocedu re:patient identified , IV checked, site and side verified, risks and benefits discussed, procedure verified, surgical consent complete, patient position confirmed, monitors and equipment checked and pre-op evaluation complete MSBT: antiseptic used during central venous catheter insertion, all elements of maximal sterile barrier technique followed, hand hygiene performed prior to central venous catheter insertion, cap/gown used by other personnel during central venous catheter insertion, solutions labeled and all ports not used during insertion clamped Indication s: Indication s: Central pressure monitoring Anesthesia : Anesthesia : General Procedure details: Patient position: Trendelenb urg Catheter Type: Double lumen Catheter Size: 9.5 Fr Catheter Site: internal jugular vein Catheter site laterality : Right Ultrasound guidance used: Yes Ultrasound image saved: Yes Number of attempts: 1 Successful placement: Yes Guidewire removal: Guidewire removal is confirmed Post-proc edure: Post-proce dure: line sutured, sterile dressing applied per protocol and ports flushed with saline Assessment : Blood return through all ports Patient tolerance: Patient tolerated the procedure well with no immediate complicati ons CENTRAL LINE Routine 02/25/2018 3:06 PM ELEVATOR REPAIR MECHANIC Procedure Note - Seema Deshpande MD - 02/25/2018 3:06 PM ELEVATOR REPAIR MECHANIC Central line Performed by: Seema Deshpande MD Authorized by: Seema Deshpande MD Patient Location: OR Start Time: 02/25/2018 2:31 PM End Time: 02/25/2018 2:40 PM Staff: Robert chacon: Seema Deshpande MD Resident/C HALLE/AA: Evette Cruz Performed by: Anesthesialen chacon Preprocedu re:patient identified , IV checked, site and side verified, risks and benefits discussed, procedure verified, surgical consent complete, patient position confirmed, monitors and equipment checked and pre-op evaluation complete MSBT: antiseptic used during central venous catheter insertion, all elements of maximal sterile barrier technique followed, hand hygiene performed prior to central venous catheter insertion, cap/gown used by other personnel during central venous catheter insertion, solutions labeled and all ports not used during insertion clamped Indication s: Indication s: Central pressure monitoring Anesthesia : Anesthesia : General Procedure details: Patient position: Trendelenb urg Catheter Type: Double lumen Catheter Size: 8 Fr Catheter Site: internal jugular vein Catheter site laterality : Right Ultrasound guidance used: Yes Ultrasound image saved: Yes Number of attempts: 1 Successful placement: Yes Guidewire removal: Guidewire removal is confirmed Post-proc edure: Post-proce dure: line sutured, sterile dressing applied per protocol and ports flushed with saline Post-proce dure: Blood cleaned with CHG and sterile caps on all hubs Assessment : Blood return through all ports and free fluid flow Patient tolerance: Patient tolerated the procedure well with no immediate complicati ons ARTERIAL LINE Routine 02/25/2018 3:05 PM ELEVATOR REPAIR MECHANIC Procedure Note - Seema Deshpande MD - 02/25/2018 3:05 PM ELEVATOR REPAIR MECHANIC Arterial line Performed by: Seema Deshpande MD Authorized by: Seema Deshpande MD Patient Location: OR Start Time: 02/25/2018 2:20 PM End Time: 02/25/2018 2:25 PM Staff: Anesthesio logist: Seema Deshpande MD Performed by: Anesthesio logist Pre-proced ure: patient identified , IV checked, site and side verified, risks and benefits discussed, procedure verified, surgical consent complete, patient position confirmed, monitors and equipment checked and pre-op evaluation complete MSBT: antiseptic used, all elements of maximal sterile barrier technique followed, hand hygiene performed, cap/gown used by other personnel and solutions labeled Indication s: Indication s: multiple ABGs and hemodynami c monitoring Anesthesia : Anesthesia : General Procedure Details: Arterial Line placement: Placed pre-induct ion Line placement site: Brachial Line placement side: Right and left Arterial line gauge: 20 G Number of attempts: 1 Ultrasound guidance used: Yes Post-proc edure: Post-proce dure: Sterile dressing applied Post procedure circulatio n, sensation, movement: Normal Patient tolerance: Patient tolerated the procedure well with no immediate complicati ons ACTIVATED CLOTTING TIME Routine 02/25/2018 3:05 PM ELEVATOR REPAIR MECHANIC GA AN ELECTIVE Routine 02/25/2018 ENDOTRACHEAL AIRWAY 3:03 PM ELEVATOR REPAIR MECHANIC Procedure Note - Seema Deshpande MD - 02/25/2018 3:03 PM ELEVATOR REPAIR MECHANIC ANESTHESIA INTUBATION Date/Time: 02/25/2018 2:28 PM Performed by: Seema Deshpande MD Authorized by: Seema Deshpande MD Location: OR Urgency: Elective Difficult Airway: No Anesthesio logist: Seema Deshpande MD Resident/C RNA/AA: Evette Cruz Performed by: anesthesio logist Preoxygena aniyah with 100% O2: Yes C-spine Precaution s Maintained Throughout : Yes Mask Ventilatio n: Easy mask Final Airway Type: Endotrache al airway Final Endotrache al Airway: ETT Cuffed: Yes Technique Used: Direct laryngosco py Devices/Me thods Used in Placement: Intubatin g stylet Insertion Site: Oral Blade Type: Beavers Laryngosco pe Blade/Vide olaryngosc ope Blade Size: 2 ETT Size (mm): 7.0 Cuff at minimum occlusion pressure: Yes Measured from: Gums Placement Verified by: CO2 detection Laryngosc opic view: Grade IIb - view of arytenoids or posterior of glottis only Rapid Sequence Induction (RSI): No Modified RSI: No Number of Attempts at Approach: 1 SURGICAL PATHOLOGY Routine 02/25/2018 REQUEST 9:10 AM ELEVATOR REPAIR MECHANIC IRON LEVEL Routine 02/21/2018 Preop cardiovascular exam 4:03 PM ELEVATOR REPAIR MECHANIC Pre-op testing XR CHEST 2 VW Routine 02/21/2018 Preop cardiovascular exam 3:18 PM ELEVATOR REPAIR MECHANIC SPIROMETRY Routine 02/21/2018 Preop 2:13 PM ELEVATOR REPAIR MECHANIC pulmonary/respiratory exam Preop examination ECG PRE/POST OP Routine 02/21/2018 Preop cardiovascular exam 1:33 PM ELEVATOR REPAIR MECHANIC Pre-op testing PREPARE RBC Routine 02/21/2018 1:30 PM ELEVATOR REPAIR MECHANIC TYPE AND SCREEN Routine 02/21/2018 Preop cardiovascular exam 1:30 PM ELEVATOR REPAIR MECHANIC Pre-op testing URINE CULTURE Routine 02/21/2018 1:30 PM ELEVATOR REPAIR MECHANIC HEMOGLOBIN A1C Routine 02/21/2018 Preop cardiovascular exam 1:29 PM ELEVATOR REPAIR MECHANIC FERRITIN LEVEL Routine 02/21/2018 Preop cardiovascular exam 1:24 PM ELEVATOR REPAIR MECHANIC Pre-op testing FOLATE LEVEL Routine 02/21/2018 Preop cardiovascular exam 1:24 PM ELEVATOR REPAIR MECHANIC Pre-op testing TOTAL IRON BINDING Routine 02/21/2018 Preop cardiovascular exam CAPACITY 1:24 PM ELEVATOR REPAIR MECHANIC Pre-op testing VITAMIN B12 LEVEL Routine 02/21/2018 Preop cardiovascular exam 1:24 PM ELEVATOR REPAIR MECHANIC Pre-op testing URINALYSIS SCREEN AND Routine 02/21/2018 Preop cardiovascular exam MICROSCOPY, WITH REFLEX 1:22 PM ELEVATOR REPAIR MECHANIC Pre-op testing TO CULTURE ESTIMATED GFR Routine 02/21/2018 1:16 PM ELEVATOR REPAIR MECHANIC PROTHROMBIN TIME WITH INR Routine 02/21/2018 Preop cardiovascular exam 1:16 PM ELEVATOR REPAIR MECHANIC Pre-op testing PARTIAL THROMBOPLASTIN Routine 02/21/2018 Preop cardiovascular exam TIME (PTT) 1:16 PM ELEVATOR REPAIR MECHANIC Pre-op testing COMPREHENSIVE METABOLIC Routine 02/21/2018 Preop cardiovascular exam PANEL 1:16 PM ELEVATOR REPAIR MECHANIC Pre-op testing HC COMPLETE BLD COUNT Routine 02/21/2018 Preop cardiovascular exam W/AUTO DIFF 1:16 PM ELEVATOR REPAIR MECHANIC Pre-op testing after 03/09/2017 Results * CBC with platelet and differential (03/05/2018 5:24 AM ELEVATOR REPAIR MECHANIC) Only the most recent of 7 results within the time period is included. WBC 13.17 (H) 4.50 - 11.00 k/uL [facility] RBC 3.77 (L) 4.20 - 5.50 m/uL [facility] HGB 10.5 (L) 12.0 - 16.0 g/dL [facility] HCT 32.9 (L) 37.0 - 47.0 % [facility] MCV 87.3 82.0 - 100.0 fL [facility] MCH 27.9 27.0 - 34.0 pg [facility] MCHC 31.9 31.0 - 37.0 g/dL [facility] RDW - SD 44.2 37.0 - 55.0 fL [facility] MPV 10.8 8.8 - 13.2 fL [facility] Platelet count 331 150 - 400 k/uL [facility] Nucleated RBC 0.00 /100 WBC [facility] Neutrophils 70.4 (H) 39.0 - 69.0 % [facility] Lymphocytes 18.4 (L) 25.0 - 45.0 % [facility] Monocytes 9.6 0.0 - 10.0 % [facility] Eosinophils 0.4 0.0 - 5.0 % [facility] Basophils 0.2 0.0 - 1.0 % [facility] Immature granulocytes 1.0Comment: "Immature 0.0 - 1.0 % [facility] granulocytes" (promyelocytes, HOSPITAL myelocytes, metamyelocytes) Specimen Blood Performing Organization Address City/[facility] Phone Number [facility] [place] [address] PATHOLOGY AND [facility] MEDICINE [address] * Estimated GFR (03/05/2018 4:00 AM ELEVATOR REPAIR MECHANIC) Only the most recent of 10 results within the time period is included. Estimated GFR 57 (A) mL/min/1.73 m2 [facility] Comment: HOSPITAL CatergoryUnitsInte rpretation G1 >=90 Normal or high G2 60-89Mildly decreased F1f10-09 Mildly to moderately decreased [id number] Moderately to severely decreased G4 15-29Severely decreased G5 <15Kidney failure The eGFR was calculated using the Chronic Kidney Disease Epidemiology Collaboration (CKD-EPI) equation. Interpretation is based on recommendations of the National Kidney Foundation-Kidney Disease Outcomes Quality Initiative (NKF-KDOQI) published in 2014. Specimen Plasma specimen Performing Organization Address City/[facility] Phone Number [facility] [place] [address] PATHOLOGY AND GENOMIC MEDICINE [address] * Phosphorus level (03/05/2018 4:00 AM ELEVATOR REPAIR MECHANIC) Only the most recent of 4 results within the time period is included. Phosphorus 3.9 2.4 - 4.5 mg/dL [facility] Specimen Plasma specimen Performing Organization Address City/[facility] Phone Number [facility] [place] [address] PATHOLOGY AND GENOMIC MEDICINE [address] * Magnesium level (03/05/2018 4:00 AM ELEVATOR REPAIR MECHANIC) Only the most recent of 6 results within the time period is included. Magnesium 1.9 1.6 - 2.4 mg/dL [facility] Specimen Plasma specimen Performing Organization Address City/[facility] Phone Number [facility] [place] [address] PATHOLOGY AND [facility] MEDICINE [address] * Ionized calcium (03/05/2018 4:00 AM ELEVATOR REPAIR MECHANIC) Only the most recent of 3 results within the time period is included. pH 7.54 [facility] Ionized calcium 1.07 (L) 1.11 - 1.32 mmol/L [facility] Specimen Plasma specimen Performing Organization Address [facility] Phone Number [facility] [place] [address] PATHOLOGY AND [facility] MEDICINE [address] * Comprehensive metabolic panel (03/05/2018 4:00 AM ELEVATOR REPAIR MECHANIC) Only the most recent of 3 results within the time period is included. Sodium 140 135 - 148 mEq/L [facility] Potassium 3.2 (L) 3.5 - 5.0 mEq/L [facility] Chloride 94 (L) 98 - 112 mEq/L [facility] CO2 28 24 - 31 mEq/L [facility] Anion gap 18@ANIO (H) 7 - 15 mEq/L [facility] BUN 16 8 - 23 mg/dL [facility] Creatinine 1.02 (H) 0.50 - 0.90 mg/dL [facility] Glucose 99 65 - 99 mg/dL [facility] Calcium 9.1 8.8 - 10.2 mg/dL [facility] Protein 6.5 6.3 - 8.3 g/dL [facility] Comment: HOSPITAL [place] 4.6-7.0 g/dL 1 week 4.4-7.6 g/dL 7 months-1year 5.1-7.3 g/dL 1-2 years5.6-7 .5 g/dL >3 years6.0-8 .0 g/dL 18-150 6.3-8.3 g/dL Albumin 2.6 (L) 3.5 - 5.0 g/dL [facility] A/G ratio 0.7 0.7 - 3.8 [facility] Alkaline phosphatase 127 (H) 35 - 104 U/L [facility] AST 35 10 - 35 U/L [facility] ALT 23 5 - 50 U/L [facility] Total bilirubin 1.2 0.0 - 1.2 mg/dL [facility] Specimen Plasma specimen Performing Organization Address City/[facility] Phone Number [facility] DEPARTMENT OF [address] [place] [address] PATHOLOGY AND GENOMIC MEDICINE [address] * POC glucose (03/03/2018 8:15 AM ELEVATOR REPAIR MECHANIC) Only the most recent of 30 results within the time period is included. POC glucose 114 (H) 65 - 99 mg/dL [facility] Comment: HOSPITAL No Action Needed Meter ID: [id number] Termite Control Technician: Jose Manuel Acuña Performing Organization Address [facility] Phone Number [facility] DEPARTMENT OF [address] [place] [address] PATHOLOGY AND GENOMIC MEDICINE [address] * CBC hemogram (03/02/2018 5:45 AM ELEVATOR REPAIR MECHANIC) Only the most recent of 2 results within the time period is included. WBC 11.73 (H) 4.50 - 11.00 k/uL [facility] RBC 4.09 (L) 4.20 - 5.50 m/uL [facility] HGB 11.4 (L) 12.0 - 16.0 g/dL [facility] HCT 36.6 (L) 37.0 - 47.0 % [facility] MCV 89.5 82.0 - 100.0 fL [facility] MCH 27.9 27.0 - 34.0 pg [facility] MCHC 31.1 31.0 - 37.0 g/dL [facility] RDW - SD 45.6 37.0 - 55.0 fL [facility] MPV 11.7 8.8 - 13.2 fL [facility] Platelet count 197 150 - 400 k/uL [facility] Nucleated RBC 0.00 /100 WBC [facility] Performing Organization Address City/[facility] Phone Number [facility] DEPARTMENT OF [address] [place] [address] PATHOLOGY AND GENOMIC MEDICINE [address] * Basic metabolic panel (03/02/2018 5:40 AM ELEVATOR REPAIR MECHANIC) Only the most recent of 7 results within the time period is included. Sodium 136 135 - 148 mEq/L [facility] Potassium 3.9 3.5 - 5.0 mEq/L [facility] Chloride 97 (L) 98 - 112 mEq/L [facility] CO2 22 (L) 24 - 31 mEq/L [facility] Anion gap 17@ANIO (H) 7 - 15 mEq/L [facility] BUN 25 (H) 8 - 23 mg/dL [facility] Creatinine 0.99 (H) 0.50 - 0.90 mg/dL [facility] Glucose 94 65 - 99 mg/dL [facility] Calcium 9.5 8.8 - 10.2 mg/dL [facility] Specimen Plasma specimen Performing Organization Address City/[facility] Phone Number [facility] DEPARTMENT OF [address] [place] [address] PATHOLOGY AND GENOMIC MEDICINE [address] * Echocardiogram complete w contrast and 3D if needed (03/01/2018 3:57 PM ELEVATOR REPAIR MECHANIC) Narrative Performed At [facility] Echocardiography Report [address] [place] [address] Pat.Name:BATSHEVA LOPEZ Pat.ID:[id number] .Date: 03/01/2018 Refer.MD:BIN DC MD Exam Time: 3:13:00 PMStudy Type:Routine Echo Height:162cm Weight:94kg BSA: 1.98 m2 DOBAge:1950,67Y Sex: FEMALEBP:122/58 HR:95 bpmSonogrphr: SHANNAN Monroy Pat. Stat.:[facility] Status:Final Echo Event ID:[id number] Order ID:[id number] Reason for Study:post op MV replacement History / Clinical:Coronary Artery Disease, Hypertension Procedures:2D Echo, Colorflow Doppler Race:D SUMMARY: LV size is mildly enlarged. LV EF is moderately depressed. Estimated EF is 30-39%. Bioprosthetic mitral valve. Increased velocity and gradient likely related to prosthetic valve size. FINDINGS: LV: LV size is mildly enlarged. LV EF is moderately depressed. EstimatedEF is 30-39%. Overall wall motion is depressed. RV: RV size is difficult to assess. RV systolic function is difficultto assess, appears mildly depressed. LA: LA volume is difficult to assess. RA: RA volume is difficult to assess. AO: Aortic root diameter is normal. JOELLE: No pericardial effusion. AV: No structural AV abnormalities noted. MV: Bioprosthetic mitral valve. Increased velocity and gradient likelyrelated to prosthetic valve size. PV: Pulmonic valve not well seen. TV: Tricuspid valve not well seen. Other:Insufficient TR jet to estimate PA systolic pressure. MEASUREMENTS: DOPPLER MV For Flow/Valve Assess MV pkVel 184.1 cm/sMV Dec T 289 msec MV pkPG 13.6 mmHgMV TVI33 cm MV Mean G4.8 mmHgMV Area P1/2t2.6 cm2(4-6) 2D Parasternal [place] LVIDd5.3 cmIndex2.7 cm/m LV Dmxk029.6 g(87-129) IVSd 0.9 cmLVM Index 90.7 g/m2 LVPWd0.9 cmRWT0.4 Ao Rtd 3.3 cmIndex1.7 cm/m Signed 03/01/2018 07:05 PM Alonso Umana M.D. Procedure Note Interface, Radiology Results In - 03/01/2018 7:07 PM ELEVATOR REPAIR MECHANIC Echocardiography Report [id number] [facility], [place] [address], [place] [address] Pat.Name: BATSHEVA LOPEZ.ID: [id number] .Date: 03/01/2018 Refer.MD: BIN DC MD Exam Time: 3:13:00 PM Study Type:Routine Echo Height: 162cm Weight: 94kg BSA: 1.98 m2 Age: 2 1950,67Y Sex: FEMALE BP: 122/58 HR: 95 bpm Sonogrphr: SHANNAN Monroy Pat. Stat.:Inpatient Room: [facility] Study Status:Final Echo Event ID:[id number] Order ID: [id number] Reason for Study:post op MV replacement History / Clinical:Coronary Artery Disease, Hypertension Procedures:2D Echo, Colorflow Doppler Race: D SUMMARY: LV size is mildly enlarged. LV EF is moderately depressed. Estimated EF is 30-39%. Bioprosthetic mitral valve. Increased velocity and gradient likely related to prosthetic valve size. FINDINGS: LV: LV size is mildly enlarged. LV EF is moderately depressed. Estimated EF is 30-39%. Overall wall motion is depressed. RV: RV size is difficult to assess. RV systolic function is difficult to assess, appears mildly depressed. LA: LA volume is difficult to assess. RA: RA volume is difficult to assess. AO: Aortic root diameter is normal. JOELLE: No pericardial effusion. AV: No structural AV abnormalities noted. MV: Bioprosthetic mitral valve. Increased velocity and gradient likely related to prosthetic valve size. PV: Pulmonic valve not well seen. TV: Tricuspid valve not well seen. Other: Insufficient TR jet to estimate PA systolic pressure. MEASUREMENTS: DOPPLER MV For Flow/Valve Assess MV pkVel 184.1 cm/s MV Dec T 289 msec MV pkPG 13.6 mmHg MV TVI 33 cm MV Mean G 4.8 mmHg MV Area P1/2t 2.6 cm2 (4-6) 2D Parasternal [place] LVIDd 5.3 cm Index 2.7 cm/m LV Mass 179.6 g (87-129) IVSd 0.9 cm LVM Index 90.7 g/m2 LVPWd 0.9 cm RWT 0.4 Ao Rtd 3.3 cm Index 1.7 cm/m Signed 03/01/2018 07:05 PM Alonso Umana M.D. Performing Organization Address City/State/Zipcode Phone Number [facility] [address] [place] [address] * US Renal (02/27/2018 5:20 PM ELEVATOR REPAIR MECHANIC) Narrative Performed At EXAMINATION:US RENAL [facility] CLINICAL HISTORY:Renal failureacute (kidney injury) COMPARISON:No TECHNIQUE: Routine renal ultrasound obtained. IMPRESSION: 1.Urinary bladder collapsed not well seen. 2.Kidneys measure 10.7 x 3.7 x 5.5 cm in the right and 9.7 x 3.3 x 4.3 cm in the left. Cortical thickness and echogenicity are well-maintained. A 3.2 cm simple cyst in the right kidney. No focal lesion on the left. No stones or hydronephrosis on either side. [facility]-[id number] Procedure Note Interface, Radiology Results Incoming - 02/27/2018 5:56 PM ELEVATOR REPAIR MECHANIC EXAMINATION: US RENAL CLINICAL HISTORY: Renal failure acute (kidney injury) COMPARISON: No TECHNIQUE: Routine renal ultrasound obtained. IMPRESSION: 1. Urinary bladder collapsed not well seen. 2. Kidneys measure 10.7 x 3.7 x 5.5 cm in the right and 9.7 x 3.3 x 4.3 cm in the left. Cortical thickness and echogenicity are well-maintained. A 3.2 cm simple cyst in the right kidney. No focal lesion on the left. No stones or hydronephrosis on either side. [facility]-[id number] Performing Organization Address City/[facility]/[place] [address] * Urinalysis screen and microscopy, with reflex to culture (02/27/2018 3:30 PM ELEVATOR REPAIR MECHANIC) Only the most recent of 2 results within the time period is included. Specimen site Clean catch [facility] Color, UA Charity [facility] Appearance, UA Clear [facility] Specific gravity, UA 1.016 1.001 - 1.035 [facility] pH, UA 5.0 5.0 - 8.5 [facility] Protein, UA 1+ (A) Negative [facility] Glucose, UA Negative Negative [facility] Ketones, UA Negative Negative [facility] Bilirubin, UA Negative Negative [facility] Blood, UA Moderate (A) Negative [facility] Nitrite, UA Negative Negative [facility] Urobilinogen, UA FootnoteComment: UNABLE TO <2.0 [facility] Leukocyte esterase, UA Moderate (A) Negative [facility] Epithelial cells, UA >20 /HPF [facility] WBC, UA 18 (H) 0 - 4 /HPF [facility] RBC, UA 2 0 - 5 /HPF [facility] Bacteria, UA Moderate (A) None seen [facility] Yeast, UA None seen [facility] Yeast with pseudohyphae, None seen [facility] Hyaline casts, UA 7 /LPF [facility] Specimen Urine Performing Organization Address City/[facility] Phone Number [address] [address] PATHOLOGY AND GENOMIC MEDICINE [address] * Urine eosinophils (02/27/2018 3:30 PM ELEVATOR REPAIR MECHANIC) Eosinophils, urine NONE [facility] Performing Organization Address City/[facility] Phone Number [facility] DEPARTMENT OF [address] [place] [address] PATHOLOGY AND GENOMIC MEDICINE [address] * Urea nitrogen, urine, timed (02/27/2018 3:30 PM ELEVATOR REPAIR MECHANIC) Urine urea nitrogen 679 mg/dL [facility] Specimen Urine Performing Organization Address [facility] Phone Number [facility] [place] [address] PATHOLOGY AND GENOMIC MEDICINE [address] * Sodium level, urine, timed (02/27/2018 3:30 PM ELEVATOR REPAIR MECHANIC) Urine sodium <20 mEq/L [facility] Urine sodium excretion SEE COMMENT [facility] Comment: HOSPITAL Varies with diet. Unable to calculate excretion due to low analyte concentration. Specimen Urine Performing Organization Address [facility] Phone Number [facility] [place] [address] PATHOLOGY AND GENOMIC MEDICINE [address] * Creatinine level, urine, timed (02/27/2018 3:30 PM ELEVATOR REPAIR MECHANIC) Urine creatinine 175 mg/dL [facility] Specimen Urine Performing Organization Address [facility] Phone Number [facility] [place] [address] PATHOLOGY AND GENOMIC MEDICINE [address] * Gram stain (02/27/2018 3:30 PM ELEVATOR REPAIR MECHANIC) Gram stain result Rare WBC's [facility] Occasional Gram negative rods [facility] Comment: Specimen Information Specimen Source: Urine Specimen Site: Clean catch Specimen Urine Performing Organization Address City/[facility] Phone Number [facility] [place] [address] PATHOLOGY AND GENOMIC MEDICINE [address] * Urine culture (02/27/2018 3:30 PM ELEVATOR REPAIR MECHANIC) Only the most recent of 2 results within the time period is included. Urine culture isolate Mixed maddison <=10-3 col/cc [facility] Comment: HOSPITAL Specimen Information Specimen Source: Urine Specimen Site: Clean catch Specimen Urine Performing Organization Address City/[facility]/Zipcode Phone Number [facility] [place] [address] PATHOLOGY AND GENOMIC MEDICINE [facility] [address] [place] [address] HOSPITAL * XR Chest 1 Vw Portable (02/27/2018 3:00 PM ELEVATOR REPAIR MECHANIC) Only the most recent of 3 results within the time period is included. Narrative Performed At EXAMINATION:XR CHEST 1 VW PORTABLE [facility] CLINICAL HISTORY:marked leukocytosis COMPARISON:Yesterday IMPRESSION: Interval removal of the right IJ central line and right IJ sheath. No pneumothorax identified. Bibasilar opacities are slightly improved on the left and worse on the right, otherwise stable [facility]-[id number] Procedure Note Hm Interface, Radiology Results Incoming - 02/27/2018 3:07 PM ELEVATOR REPAIR MECHANIC EXAMINATION: XR CHEST 1 VW PORTABLE CLINICAL HISTORY: marked leukocytosis COMPARISON: Yesterday IMPRESSION: Interval removal of the right IJ central line and right IJ sheath. No pneumothorax identified. Bibasilar opacities are slightly improved on the left and worse on the right, otherwise stable [facility]-[id number] Performing Organization Address City/State/Zipcode Phone Number [facility] [address] [place] [address] * Line/Drain Removal (02/26/2018 9:48 AM ELEVATOR REPAIR MECHANIC) Narrative Performed At Gael Lopez Jr., PA-C 02/26/20189:49 AM Line/Drain Removal Date/Time: 02/26/2018 9:48 AM Performed by: Gael Lopez Jr., PA-C Authorized by: Gael Lopez Jr., PA-C Pre-procedure details: Line or drain removed:Chest tube Chest Tube Removal: Chest tube removed from suction: Yes Sutures retied: Yes Removal procedure: Number of people performing procedure:1 Breath held: Yes Dressing applied::4x4 sterile gauze and occlusive * ECG 12 lead (02/26/2018 4:55 AM ELEVATOR REPAIR MECHANIC) Only the most recent of 2 results within the time period is included. Ventricular rate 75 [facility] Atrial rate 75 [facility] GA interval 152 [facility] QRSD interval 82 [facility] QT interval 454 [facility] QTC interval 506 [facility] P axis 1 57 [facility] QRS axis 1 16 [facility] T wave axis 8 [facility] EKG impression Normal sinus rhythm-Prolonged [facility] MUSE QT-Abnormal ECG-In automated comparison with ECG of 25-FEB-2018 21:29,-No significant change was found- Narrative Performed At Performing Organization Address City/State/Zipcode Phone Number [facility] MUSE [address] [place] [address] * Partial thromboplastin time, activated (02/25/2018 8:53 PM ELEVATOR REPAIR MECHANIC) Only the most recent of 2 results within the time period is included. PTT 39.0 (H) 23.0 - 36.0 sec [facility] Comment: [facility] PTT therapeutic range for unfractionated heparin is 61.0-112.0 seconds which corresponds to Anti-Xa 0.3-0.7 U/ml. Specimen Blood Performing Organization Address [facility] Phone Number [facility] [place] [address] PATHOLOGY AND [facility] MEDICINE [address] * Prothrombin time with INR (02/25/2018 8:53 PM ELEVATOR REPAIR MECHANIC) Only the most recent of 3 results within the time period is included. Prothrombin time 18.4 (H) 11.5 - 14.5 sec [facility] INR 1.6 [facility] Comment: HOSPITAL The International Normalized Ratio (INR) is a therapeutic monitoring tool for patients who are stable on oral anticoagulant therapy. An INR of 2.0-3.0 is suggested for deep vein thrombosis/pulmonary embolism. Specimen Blood Performing Organization Address [facility] Phone Number [facility] DEPARTMENT OF [address] [place] [address] PATHOLOGY AND [facility] MEDICINE [address] * Ionized calcium, arterial (02/25/2018 8:51 PM ELEVATOR REPAIR MECHANIC) Only the most recent of 7 results within the time period is included. Ionized calcium, arterial 1.01 (L) 1.11 - 1.32 mmol/L [facility] Specimen Blood Performing Organization Address City/[facility]/Zipcode Phone Number [facility] DEPARTMENT OF [address] [place] [address] PATHOLOGY AND [facility] MEDICINE [address] * Arterial blood gas (02/25/2018 8:51 PM ELEVATOR REPAIR MECHANIC) pH, arterial 7.38 7.35 - 7.45 [facility] pCO2, arterial 37 35 - 45 mmHg [facility] pO2, arterial 238 (H) 80 - 90 mmHg [facility] Bicarbonate, arterial 21.5 21.0 - 28.0 mmol/L [facility] Base excess, arterial -3 (L) -2 - 2 mEq/L [facility] O2 saturation, arterial 100 95 - 100 % [facility] Specimen Blood Performing Organization Address City/State/Zipcode Phone Number [facility] DEPARTMENT OF [address] [place] [address] PATHOLOGY AND GENOMIC MEDICINE [address] * Transfuse RBC (02/25/2018 8:13 PM ELEVATOR REPAIR MECHANIC) Only the most recent of 2 results within the time period is included. * XR Chest 2 Vw (02/25/2018 7:46 PM ELEVATOR REPAIR MECHANIC) Only the most recent of 2 results within the time period is included. Narrative Performed At EXAMINATION:XR CHEST 2 VW RADIANT CLINICAL HISTORY:Incorrect needle count COMPARISON:02/21/2018 TECHNIQUE: Frontal and lateral views of the chest obtained. IMPRESSION: Interval sternotomy. Numerous surgical clips projecting over the neck. Esophageal probe tip projecting to the right of midline at the level of the neck. ET tube tip projecting at the level of clavicular heads. Endoscope tip projecting over the proximal stomach. Right IJ central line tip projecting in the superior cavoatrial junction. Right IJ approach Clifton-Poli catheter tip projecting over the main pulmonary artery. Couple of mediastinal drains. Epicardial pacer wires. No radiodensity to indicate a missing needle is identified. No pneumothorax identified. Cardiomediastinal silhouette is enlarged, and pulmonary vasculature mildly congested. No lobar consolidation or pleural effusion identified on the frontal view(s). Findings were discussed with nurse Karla Leonard 02/25/2018 7:53 PM who repeated the findings and verbalized understanding. [facility]-[id number] Procedure Note Hm Interface, Radiology Results Incoming - 02/25/2018 7:57 PM ELEVATOR REPAIR MECHANIC EXAMINATION: XR CHEST 2 VW CLINICAL HISTORY: Incorrect needle count COMPARISON: 02/21/2018 TECHNIQUE: Frontal and lateral views of the chest obtained. IMPRESSION: Interval sternotomy. Numerous surgical clips projecting over the neck. Esophageal probe tip projecting to the right of midline at the level of the neck. ET tube tip projecting at the level of clavicular heads. Endoscope tip projecting over the proximal stomach. Right IJ central line tip projecting in the superior cavoatrial junction. Right IJ approach Clifton-Poli catheter tip projecting over the main pulmonary artery. Couple of mediastinal drains. Epicardial pacer wires. No radiodensity to indicate a missing needle is identified. No pneumothorax identified. Cardiomediastinal silhouette is enlarged, and pulmonary vasculature mildly congested. No lobar consolidation or pleural effusion identified on the frontal view(s). Findings were discussed with nurse Karla Coronado at 02/25/2018 7:53 PM who repeated the findings and verbalized understanding. [facility]-[id number] Performing Organization Address City/[facility]/[place] [address] * Sodium level, syringe (02/25/2018 7:10 PM ELEVATOR REPAIR MECHANIC) Only the most recent of 6 results within the time period is included. Sodium, syringe 138 135 - 148 mEq/L [facility] Specimen Blood Performing Organization Address [facility] Phone Number [facility] [place] [address] PATHOLOGY AND [facility] MEDICINE [address] * Potassium, syringe (02/25/2018 7:10 PM ELEVATOR REPAIR MECHANIC) Only the most recent of 6 results within the time period is included. Potassium, syringe 3.7 3.5 - 5.0 mEq/L [facility] Specimen Blood Performing Organization Address [facility] Phone Number [facility] [place] [address] PATHOLOGY AND GENOMIC MEDICINE [address] * Hemoglobin, syringe (02/25/2018 7:10 PM ELEVATOR REPAIR MECHANIC) Only the most recent of 6 results within the time period is included. Hemoglobin, syringe 7.8 (L) 12.0 - 16.0 g/dL [facility] Specimen Blood Performing Organization Address City/[facility] Phone Number [facility] [place] [address] PATHOLOGY AND GENOMIC MEDICINE [address] * Glucose level, syringe (02/25/2018 7:10 PM ELEVATOR REPAIR MECHANIC) Only the most recent of 6 results within the time period is included. Glucose, syringe 164 (H) 65 - 99 mg/dL [facility] Specimen Blood Performing Organization Address City/[facility] Phone Number [facility] [place] [address] PATHOLOGY AND GENOMIC MEDICINE [address] * Arterial blood gas, corrected (02/25/2018 7:10 PM ELEVATOR REPAIR MECHANIC) Only the most recent of 6 results within the time period is included. pH, arterial 7.38 7.35 - 7.45 [facility] pCO2, arterial 38 35 - 45 mmHg [facility] pO2, arterial 177 (H) 80 - 90 mmHg [facility] Temperature, Celsius 36.2 Degrees C [facility] O2 saturation, arterial 100 95 - 100 % [facility] pH, arterial corrected 7.39 [facility] pCO2, arterial corrected 37 mmHg [facility] pO2, arterial corrected 173 mmHg [facility] Base excess, arterial -2 -2 - 2 mEq/L [facility] Specimen Blood Performing Organization Address [facility] Phone Number [facility] [place] [address] PATH[address] * Fibrinogen (02/25/2018 7:10 PM ELEVATOR REPAIR MECHANIC) Fibrinogen 272 200 - 450 mg/dL [facility] Specimen Blood Performing Organization Address City/[facility] Phone Number [facility] [place] [address] PATHOLOGY AND GENOMIC MEDICINE [address] * Platelet count (02/25/2018 7:10 PM ELEVATOR REPAIR MECHANIC) Platelet count 121 (L) 150 - 400 k/uL [facility] Performing Organization Address City/[facility] Phone Number [facility] [place] [address] PATHOLOGY AND GENOMIC MEDICINE [address] * Activated clotting time (02/25/2018 6:36 PM ELEVATOR REPAIR MECHANIC) Only the most recent of 8 results within the time period is included. Activated clotting time 125 96 - 152 sec [facility] Comment: HOSPITAL Meter ID: [id number] Termite Control Technician: Rosales Ferris Performing Organization Address City/State/Zipcode Phone Number [facility] DEPARTMENT OF [address] [place] [address] PATHOLOGY AND GENOMIC MEDICINE [address] * Surgical pathology request (02/25/2018 9:10 AM ELEVATOR REPAIR MECHANIC) [facility] DEPARTMENT OF PATHOLOGY AND GENOMIC MEDICINE Surgical pathology report See link below for PDF Lab [facility] DEPARTMENT OF Report PATHOLOGY AND GENOMIC MEDICINE Result status This is Final Report for [facility] DEPARTMENT OF [id number] PATHOLOGY AND GENOMIC MEDICINE Performing Organization Address City/[facility] Phone Number [facility] DEPARTMENT OF [address] [place] [address] PATHOLOGY AND GENOMIC MEDICINE * Iron level (02/21/2018 4:03 PM ELEVATOR REPAIR MECHANIC) Iron level 82 37 - 145 ug/dL [facility] Specimen Plasma specimen Performing Organization Address City/[facility] Phone Number [facility] DEPARTMENT OF [address] [place] [address] PATHOLOGY AND GENOMIC MEDICINE [address] * Spirometry (02/21/2018 2:13 PM ELEVATOR REPAIR MECHANIC) FEV1 Pre 0.82 1.36 - 2.57 L [facility] FEV1/FVC % Pre 47.28 67.72 - 89.08 % [facility] FVC Pre 1.74 1.81 - 3.23 L [facility] PEF Pre 1.24 3.24 - 7.25 L/s [facility] FEF 25-75% Pre 0.49 0.51 - 3.25 L/s [facility] FEV1 Predicted 1.97 [facility] FEV1 LLN 1.36 [facility] FEV1 % Pre of Predicted 41.9 % [facility] FVC Predicted 2.52 [facility] FVC LLN 1.81 [facility] FVC % Pre of Predicted 69.1 % [facility] FEV1/FVC % Predicted 78 [facility] FEV1/FVC % LLN 68 [facility] FEV1/FVC % Pre of 60.3 % [facility] Predicted FEF 25-75% Predicted 1.88 [facility] FEF 25-75% LLN 0.51 [facility] FEF 25-75% % Pre of 26.1 % [facility] Predicted PEF Predicted 5.25 [facility] PEF LLN 3.24 [facility] PEF % Pre of Predicted 23.7 % [facility] MIP Predicted 53.64 [facility] MIP LLN 24.21 [facility] MEP Predicted 66.95 [facility] MEP LLN 23.32 [facility] MVV Predicted 88 [facility] MVV LLN 75 [facility] Narrative Performed At Performing Organization Address City/[facility] Phone Number [facility] [address] [place] [address] * ECG Pre/Post Op (02/21/2018 1:33 PM ELEVATOR REPAIR MECHANIC) Ventricular rate 72 [facility] Atrial rate 72 [facility] GA interval 158 [facility] QRSD interval 88 [facility] QT interval 444 [facility] QTC interval 486 [facility] P axis 1 19 [facility] QRS axis 1 67 [facility] T wave axis 0 [facility] EKG impression Normal sinus rhythm-Moderate [facility] voltage criteria for LVH, may be normal variant-Nonspecific T wave abnormality-Prolonged QT-Abnormal ECG- Narrative Performed At Performing Organization Address [facility] Phone Number [facility] MUSE [address] [place] [address] * Prepare RBC (02/21/2018 1:30 PM ELEVATOR REPAIR MECHANIC) Product name Red Blood Cells -1, Leukored [facility] Unit number [id number] [facility] Product code [id number] [facility] Dispense status Transfused [facility] Blood expiration date [facility] Blood type code 7300 [facility] Blood type B POSITIVE [facility] Product name Red Blood Cells -1, Leukored [facility] Unit number [id number] [facility] Product code [id number] [facility] Dispense status Transfused [facility] Blood expiration date [facility] Blood type code 7300 [facility] Blood type B POSITIVE [facility] Product name Red Cells AS1 Leukored Irrad [facility] Unit number [id number] [facility] Product code [id number] [facility] Dispense status Returned to BB not transfused [facility] Blood expiration date [facility] Blood type code 7300 [facility] Blood type B POSITIVE [facility] Product name Red Cells AS1 Leukored Irrad [facility] Unit number [id number] [facility] Product code [id number] [facility] Dispense status Returned to BB not transfused [facility] Blood expiration date [facility] Blood type code 7300 [facility] Blood type B POSITIVE [facility] Performing Organization Address City/State/Zipcode Phone Number [facility] DEPARTMENT OF [address] [place] [address] PATHOLOGY AND GENOMIC MEDICINE [address] * Type and screen (02/21/2018 1:30 PM ELEVATOR REPAIR MECHANIC) ABO grouping B [facility] Rh type POS [facility] Antibody screen (gel) NEG [facility] Specimen Blood Performing Organization Address City/State/Zipcode Phone Number [facility] [place] [address] PATHOLOGY AND GENOMIC MEDICINE [address] * Hemoglobin A1c (02/21/2018 1:29 PM ELEVATOR REPAIR MECHANIC) Hemoglobin A1C 5.3 4.0 - 5.6 % [facility] Comment: HOSPITAL HbA1c cutoffs for diagnosing diabetes: 4.0% - 5.6%=normal 5.7% - 6.4%=increased risk for diabetes (prediabetes) >=6.5%=diabetes Goals for glycemic control (ADA 2016) < 7.0%Target for non adults with diabetes. More or less stringent targets may be appropriate for individual patients. <7.5% Target for Children and adolescents with type 1 diabetes. Specimen Blood Performing Organization Address City/State/Zipcode Phone Number [facility] DEPARTMENT OF [address] [place] [address] PATHOLOGY AND GENOMIC MEDICINE [address] * Total iron binding capacity (02/21/2018 1:24 PM ELEVATOR REPAIR MECHANIC) Iron level 83 37 - 145 ug/dL [facility] Iron binding capacity 302 200 - 400 ug/dL [facility] % Saturation 27.5 15.0 - 38.0 % [facility] Specimen Plasma specimen Performing Organization Address City/State/[facility] Phone Number [facility] [place] [address] PATHOLOGY AND [facility] MEDICINE [address] * Folate level (02/21/2018 1:24 PM ELEVATOR REPAIR MECHANIC) Folate 12.3 4.8 - 24.2 ng/mL [facility] Specimen Serum Performing Organization Address City/[facility] Phone Number [facility] [place] [address] PATHOLOGY AND [facility] MEDICINE [address] * Ferritin level (02/21/2018 1:24 PM ELEVATOR REPAIR MECHANIC) Ferritin level 152 (H) 13 - 150 ng/mL [facility] Specimen Plasma specimen Performing Organization Address City/[facility] Phone Number [facility] [place] [address] PATHOLOGY AND [facility] MEDICINE [address] * Vitamin B12 level (02/21/2018 1:24 PM ELEVATOR REPAIR MECHANIC) Vitamin B12 707 211 - 946 pg/mL [facility] Comment: HOSPITAL Significant overlap exists between normal and deficiency states. However, most patients with deficiencies will have Serum B12 <200 pg/mL. Specimen Serum Performing Organization Address City/[facility] Phone Number [facility] [place] [address] PATHOLOGY AND GENOMIC MEDICINE [address] after 03/09/2017 Insurance Payer Benefit Subscriber ID Type Phone Address Plan / Group BCBS MEDICARE BLUE xxxxxxxxxxxx HMO MEDICARE ADVANTAGE HMO Advance Directives Patient has advance care planning documents on file. For more information, narendra gipson contact: [facility]dee Dunlap[address] [place] [address]
--- NOTE | 2018-03-10 09:25 | NUR ---
Dr. Freire at bedside with pt.
[2018-03-10] MEDS ORDERED: MORPHINE SULFATE INJ 4 MG/ML INJ ONE (10:03)
[2018-03-10] MEDS ORDERED: ONDANSETRON HCL INJ 2 MG/ML VIAL ONE (10:03)
[2018-03-10] MEDS ORDERED: ONDANSETRON HCL INJ 2 MG/ML VIAL IV ONE (10:15)
[2018-03-10] MEDS ORDERED: MORPHINE SULFATE 2 MG/ML SYR IV ONE (10:30)
[2018-03-10 10:46] LABS: BASOPHILS # (AUTO) 0.1 (0.0-0.1); BASOPHILS % 0.3 % (0.0-1.0); EOSINOPHILS % 0.3 % (0.0-6.0); HEMOGLOBIN 10.6 g/dL (12.0-16.0); LYMPHOCYTES # (AUTO) 1.6 (1.0-3.2); LYMPHOCYTES % 10.6 % (18.0-39.1); MEAN CORPUSCULAR HGB CONC 31.2 g/dL (31-35); MEAN CORPUSCULAR VOLUME 86.7 fL (81-99); MONOCYTES # (AUTO) 1.3 (0.2-0.8); MONOCYTES % 8.7 % (4.4-11.3); NEUTROPHILS # (AUTO) 11.9 (2.1-6.9); NEUTROPHILS % 79.6 % (38.7-80.0); PLATELET COUNT 496 x10e3/uL (140-360); RED BLOOD COUNT 3.92 x10e6/uL (3.6-5.1); RED CELL DISTRIBUTION WIDTH 13.8 % (11.7-14.4)
--- NOTE | 2018-03-10 10:46 | Diagnostic Imaging Report ---
EXAMINATION: CHEST SINGLE (PORTABLE) INDICATION: ^RIGHT CHEST PAIN S/P STERNOTOMY ^[id number] ^[id number] COMPARISON: 01/22/2018 FINDINGS: AP view TUBES and LINES: None. LUNGS: Limited by body habitus and low lung volumes. Pulmonary vascular congestion and mild interstitial edema. PLEURA: No pneumothorax. Small bilateral pleural effusions suspected. HEART AND MEDIASTINUM: The cardiomediastinal silhouette is enlarged on this AP view. Median sternotomy wires. BONES AND SOFT TISSUES: No acute osseous lesion. Soft tissues are unremarkable. UPPER ABDOMEN: No free air under the diaphragm. IMPRESSION: Enlarged cardiomediastinal silhouette, pulmonary vascular congestion, and mild interstitial edema. Small bilateral pleural effusions suspected. Signed by: Dr. Puneet Gamino MD on 03/10/2018 10:42 AM
[2018-03-10 10:57] LABS: ALANINE AMINOTRANSFERASE 21 IU/L (0-55); ALBUMIN 3.1 g/dL (3.5-5.0); ALBUMIN/GLOBULIN RATIO 0.7 (0.8-2.0); ALKALINE PHOSPHATASE 108 IU/L (40-150); ANION GAP 17.1 mmol/L (8-16); BLOOD UREA NITROGEN 14 mg/dL (7-26); BUN/CREATININE RATIO 14 (6-25); CALCIUM 9.3 mg/dL (8.4-10.2); CARBON DIOXIDE 24 mmol/L (22-29); CHLORIDE 98 mmol/L (98-107); CREATINE KINASE 78 IU/L (29-168); CREATININE, SERUM 0.98 mg/dL (0.57-1.11); EST GLOMERULAR FILTRATION RATE > 60 ML/MIN (60-); GLUCOSE 105 mg/dL (74-118); POTASSIUM 4.1 mmol/L (3.5-5.1); SODIUM 135 mmol/L (136-145)
[2018-03-10] MEDS ORDERED: FUROSEMIDE INJ 10 MG/ML 4 ML VIAL IV ONE (11:00)
--- NOTE | 2018-03-10 11:07 | NUR ---
Assisted pt to the restroom without incident.
--- NOTE | 2018-03-10 11:11 | NUR ---
Assisted pt back to the room without incident.
[2018-03-10] MEDS ORDERED: MORPHINE SULFATE INJ 4 MG/ML INJ IV PRN (12:15)
[2018-03-10] MEDS ORDERED: ONDANSETRON HCL INJ 2 MG/ML VIAL IV PRN (12:15)
--- NOTE | 2018-03-10 12:30 | NUR ---
Approval per Dr. Freire for pt to transport to floor.
--- OUTSIDE RECORDS SUMMARY | 2018-03-10 12:42 | XMS REPORT | Clinical Summary ---
Author Author [facility]ud [facility] Organization [place] [facility] Address Unknown Phone Unavailable Care Team Providers Care Inspector Toys Name Role Phone Asked, No Pcp PCP [...] Taken Vital Sign Reading 03/05/2018 11:37 AM SSRS DEVELOPER Blood Pressure 112/53 03/05/2018 11:37 AM SSRS DEVELOPER Pulse 79 03/05/2018 11:37 AM SSRS DEVELOPER Temperature 36.4 C (97.6 F) 03/05/2018 11:37 AM SSRS DEVELOPER Respiratory Rate 17 03/05/2018 11:37 AM SSRS DEVELOPER Oxygen Saturation 92% - Inhaled Oxygen - Concentration 03/05/2018 4:31 AM SSRS DEVELOPER Weight 91.8 kg (202 lb 4.8 oz) 02/25/2018 10:58 AM SSRS DEVELOPER Height 162.6 cm (5' 4") 03/05/2018 4:31 AM SSRS DEVELOPER Body Mass Index 34.72 Plan of Treatment [...] Tmpry Cardiac N/A: N/A MEDTR[employer] Streamline - [id number] Pacing [place] - Implanted: 02/25/2018 (Quantity not Leads or CARDIAC on file) Electrodes SRGRY or Accessorie s 6500F / / Lead Pace Jimy Mycrdl Unipol Tmpry Cardiac N/A: N/A [employer]TR[employer] Streamline - [id number] Pacing [place] - Implanted: 02/25/2018 (Quantity not Leads or CARDIAC on file) Electrodes SRGRY or Accessorie s 6500F / / Lead Pace Jimy Mycrdl Unipol Tmpry Cardiac N/A: N/A [employer]TR[employer] Streamline - [id number] Pacing [place] - Implanted: 02/25/2018 (Quantity not Leads or CARDIAC on file) Electrodes SRGRY or Accessorie s 04/17/2021 E100 [id number] 00 / [id number] / [id number] Valve Mitral Stntd Tiss Annls W/ Cardiovasc N/A: N/A [facility] Linx Ac Tech 31mm Epic - [id number] ular STRUCTURAL Implanted: 02/25/2018 (Quantity not Implants HEART on file) [id number] / / Clip Shobha Barillas Hemoclip Plus W/ Medical N/A: N/A TELEFLEX Tape Ti Lg - [id number] Clips for MEDICAL Implanted: 02/25/2018 (Quantity not Internal on file) Use 08 [id number] / / Implant Strnl Zipfix W/ Ndl Peek - Surgical N/A: N/A SYNTHES [id number] Implants; MAXIOFACIA Implanted: 02/25/2018 (Quantity not Expanders; L IMPLANT on file) Extenders; Surgical Wires 11/13/2022 [id number] / / [id number] Downing Perph Vasclr Ptfe 1.2x10cm Vascular N/A: N/A BARD 1.65mm - [id number] Graft PERIPHERAL Implanted: 02/25/2018 (Quantity not VASCULAR on file) 11/13/2022 [id number] / / [id number] Downing Perph Vasclr Ptfe 1.2x10cm Vascular N/A: N/A BARD 1.65mm - [id number] Graft PERIPHERAL Implanted: 02/25/2018 (Quantity not VASCULAR on file) Procedures Comments Procedure Name Priority Date/Time Associated Diagnosis HC COMPLETE BLD COUNT Routine 03/05/2018 W/AUTO DIFF 5:24 AM SSRS DEVELOPER ESTIMATED GFR Routine 03/05/2018 4:00 AM SSRS DEVELOPER IONIZED CALCIUM Routine 03/05/2018 4:00 AM SSRS DEVELOPER PHOSPHORUS LEVEL Routine 03/05/2018 4:00 AM SSRS DEVELOPER MAGNESIUM LEVEL Routine 03/05/2018 4:00 AM SSRS DEVELOPER COMPREHENSIVE METABOLIC Routine 03/05/2018 PANEL 4:00 AM SSRS DEVELOPER HC COMPLETE BLD COUNT Routine 03/04/2018 W/AUTO DIFF 8:30 AM SSRS DEVELOPER ESTIMATED GFR Routine 03/04/2018 4:00 AM SSRS DEVELOPER IONIZED CALCIUM Routine 03/04/2018 4:00 AM SSRS DEVELOPER PHOSPHORUS LEVEL Routine 03/04/2018 4:00 AM SSRS DEVELOPER MAGNESIUM LEVEL Routine 03/04/2018 4:00 AM SSRS DEVELOPER COMPREHENSIVE METABOLIC Routine 03/04/2018 PANEL 4:00 AM SSRS DEVELOPER POC GLUCOSE Routine 03/03/2018 8:15 AM SSRS DEVELOPER POC GLUCOSE Routine 03/02/2018 8:25 PM SSRS DEVELOPER POC GLUCOSE Routine 03/02/2018 5:06 PM SSRS DEVELOPER POC GLUCOSE Routine 03/02/2018 11:53 AM SSRS DEVELOPER POC GLUCOSE Routine 03/02/2018 8:00 AM SSRS DEVELOPER CBC HEMOGRAM Routine 03/02/2018 5:45 AM SSRS DEVELOPER ESTIMATED GFR Routine 03/02/2018 5:40 AM SSRS DEVELOPER BASIC METABOLIC PANEL Routine 03/02/2018 5:40 AM SSRS DEVELOPER POC GLUCOSE Routine 03/01/2018 9:03 PM SSRS DEVELOPER ECHOCARDIOGRAM 2D Routine 03/01/2018 COMPLETE W MMODE SPECTRAL 3:57 PM SSRS DEVELOPER COLOR DOPPLER ([id number]) POC GLUCOSE Routine 03/01/2018 12:24 PM SSRS DEVELOPER ESTIMATED GFR Routine 03/01/2018 2:24 AM SSRS DEVELOPER BASIC METABOLIC PANEL Routine 03/01/2018 2:24 AM SSRS DEVELOPER HC COMPLETE BLD COUNT Routine 03/01/2018 W/AUTO DIFF 2:10 AM SSRS DEVELOPER POC GLUCOSE Routine 02/28/2018 9:42 PM SSRS DEVELOPER POC GLUCOSE Routine 02/28/2018 6:02 PM SSRS DEVELOPER POC GLUCOSE Routine 02/28/2018 12:56 PM SSRS DEVELOPER POC GLUCOSE Routine 02/28/2018 7:41 AM SSRS DEVELOPER HC COMPLETE BLD COUNT Routine 02/28/2018 W/AUTO DIFF 4:58 AM SSRS DEVELOPER ESTIMATED GFR Routine 02/28/2018 4:00 AM SSRS DEVELOPER MAGNESIUM LEVEL Routine 02/28/2018 4:00 AM SSRS DEVELOPER BASIC METABOLIC PANEL Routine 02/28/2018 4:00 AM SSRS DEVELOPER POC GLUCOSE Routine 02/27/2018 8:49 PM SSRS DEVELOPER POC GLUCOSE Routine 02/27/2018 5:49 PM SSRS DEVELOPER US RENAL Routine 02/27/2018 5:20 PM SSRS DEVELOPER SODIUM LEVEL, URINE, Routine 02/27/2018 TIMED 3:30 PM SSRS DEVELOPER CREATININE LEVEL, URINE, Routine 02/27/2018 TIMED 3:30 PM SSRS DEVELOPER UREA NITROGEN, URINE, Routine 02/27/2018 TIMED 3:30 PM SSRS DEVELOPER URINE EOSINOPHILS Routine 02/27/2018 3:30 PM SSRS DEVELOPER URINALYSIS SCREEN AND Routine 02/27/2018 MICROSCOPY, WITH REFLEX 3:30 PM SSRS DEVELOPER TO CULTURE GRAM STAIN Routine 02/27/2018 3:30 PM SSRS DEVELOPER URINE CULTURE Routine 02/27/2018 3:30 PM SSRS DEVELOPER XR CHEST 1 VW PORTABLE Routine 02/27/2018 3:00 PM SSRS DEVELOPER ESTIMATED GFR Routine 02/27/2018 1:02 PM SSRS DEVELOPER BASIC METABOLIC PANEL Routine 02/27/2018 1:02 PM SSRS DEVELOPER POC GLUCOSE Routine 02/27/2018 12:04 PM SSRS DEVELOPER ANESTHESIA TELLY Routine 02/27/2018 9:12 AM SSRS DEVELOPER Procedure Note - Cinthia Garcia CRNA - 02/27/2018 9:12 AM SSRS DEVELOPER Procedure Performed: TELLY Start Time: 02/25/2018 3:15 [...] Inferior: normal 16- Apical Septal: normal 17- Warren: normal Valves Aortic Valve: Annulus normal. Stenosis [...] 45-50% POC GLUCOSE Routine 02/27/2018 7:25 AM SSRS DEVELOPER CBC HEMOGRAM Routine 02/27/2018 5:00 AM SSRS DEVELOPER ESTIMATED GFR Routine 02/27/2018 12:00 AM SSRS DEVELOPER PHOSPHORUS LEVEL Routine 02/27/2018 12:00 AM SSRS DEVELOPER IONIZED CALCIUM Routine 02/27/2018 12:00 AM SSRS DEVELOPER MAGNESIUM LEVEL Routine 02/27/2018 12:00 AM SSRS DEVELOPER BASIC METABOLIC PANEL Routine 02/27/2018 12:00 AM SSRS DEVELOPER POC GLUCOSE Routine 02/26/2018 9:04 PM SSRS DEVELOPER POC GLUCOSE Routine 02/26/2018 4:13 PM SSRS DEVELOPER POC GLUCOSE Routine 02/26/2018 11:42 AM SSRS DEVELOPER POC GLUCOSE Routine 02/26/2018 10:11 AM SSRS DEVELOPER XR CHEST 1 VW PORTABLE STAT 02/26/2018 10:10 AM SSRS DEVELOPER LINE/DRAIN REMOVAL Routine 02/26/2018 Non-rheumatic mitral 9:48 AM SSRS DEVELOPER valve stenosis POC GLUCOSE Routine 02/26/2018 8:00 AM SSRS DEVELOPER POC GLUCOSE Routine 02/26/2018 6:30 AM SSRS DEVELOPER POC GLUCOSE Routine 02/26/2018 5:09 AM SSRS DEVELOPER ECG 12-LEAD Routine 02/26/2018 4:55 AM SSRS DEVELOPER POC GLUCOSE Routine 02/26/2018 4:02 AM SSRS DEVELOPER POC GLUCOSE Routine 02/26/2018 3:03 AM SSRS DEVELOPER MAGNESIUM LEVEL Routine 02/26/2018 2:30 AM SSRS DEVELOPER ESTIMATED GFR Routine 02/26/2018 2:30 AM SSRS DEVELOPER HC COMPLETE BLD COUNT Routine 02/26/2018 W/AUTO DIFF 2:30 AM SSRS DEVELOPER BASIC METABOLIC PANEL Routine 02/26/2018 2:30 AM SSRS DEVELOPER POC GLUCOSE Routine 02/26/2018 1:48 AM SSRS DEVELOPER POC GLUCOSE Routine 02/26/2018 1:01 AM SSRS DEVELOPER POC GLUCOSE Routine 02/25/2018 11:44 PM SSRS DEVELOPER POC GLUCOSE Routine 02/25/2018 11:07 PM SSRS DEVELOPER POC GLUCOSE Routine 02/25/2018 10:15 PM SSRS DEVELOPER ECG 12-LEAD Routine 02/25/2018 9:29 PM SSRS DEVELOPER XR CHEST 1 VW PORTABLE Routine 02/25/2018 9:21 PM SSRS DEVELOPER PARTIAL THROMBOPLASTIN Routine 02/25/2018 TIME (PTT) 8:53 PM SSRS DEVELOPER PROTHROMBIN TIME WITH INR Routine 02/25/2018 8:53 PM SSRS DEVELOPER HC COMPLETE BLD COUNT Routine 02/25/2018 W/AUTO DIFF 8:53 PM SSRS DEVELOPER POC GLUCOSE Routine 02/25/2018 8:52 PM SSRS DEVELOPER IONIZED CALCIUM, ARTERIAL Routine 02/25/2018 8:51 PM SSRS DEVELOPER ARTERIAL BLOOD GAS Routine 02/25/2018 8:51 PM SSRS DEVELOPER ESTIMATED GFR Routine 02/25/2018 8:44 PM SSRS DEVELOPER PHOSPHORUS LEVEL Routine 02/25/2018 8:44 PM SSRS DEVELOPER MAGNESIUM LEVEL Routine 02/25/2018 8:44 PM SSRS DEVELOPER BASIC METABOLIC PANEL Routine 02/25/2018 8:44 PM SSRS DEVELOPER TRANSFUSE RED BLOOD CELLS Routine 02/25/2018 8:13 PM SSRS DEVELOPER XR CHEST 2 VW STAT 02/25/2018 7:46 PM SSRS DEVELOPER PLATELET COUNT Routine 02/25/2018 7:10 PM SSRS DEVELOPER FIBRINOGEN Routine 02/25/2018 7:10 PM SSRS DEVELOPER PROTHROMBIN TIME WITH INR Routine 02/25/2018 7:10 PM SSRS DEVELOPER GLUCOSE LEVEL, SYRINGE Routine 02/25/2018 7:10 PM SSRS DEVELOPER IONIZED CALCIUM, ARTERIAL Routine 02/25/2018 7:10 PM SSRS DEVELOPER HEMOGLOBIN, SYRINGE Routine 02/25/2018 7:10 PM SSRS DEVELOPER POTASSIUM, SYRINGE Routine 02/25/2018 7:10 PM SSRS DEVELOPER ARTERIAL BLOOD GAS, Routine 02/25/2018 CORRECTED 7:10 PM SSRS DEVELOPER SODIUM LEVEL, SYRINGE Routine 02/25/2018 7:10 PM SSRS DEVELOPER ACTIVATED CLOTTING TIME Routine 02/25/2018 6:36 PM SSRS DEVELOPER ACTIVATED CLOTTING TIME Routine 02/25/2018 5:47 PM SSRS DEVELOPER GLUCOSE LEVEL, SYRINGE STAT 02/25/2018 5:45 PM SSRS DEVELOPER IONIZED CALCIUM, ARTERIAL STAT 02/25/2018 5:45 PM SSRS DEVELOPER HEMOGLOBIN, SYRINGE STAT 02/25/2018 5:45 PM SSRS DEVELOPER SODIUM LEVEL, SYRINGE STAT 02/25/2018 5:45 PM SSRS DEVELOPER POTASSIUM, SYRINGE STAT 02/25/2018 5:45 PM SSRS DEVELOPER ARTERIAL BLOOD GAS, STAT 02/25/2018 CORRECTED 5:45 PM SSRS DEVELOPER ACTIVATED CLOTTING TIME Routine 02/25/2018 5:16 PM SSRS DEVELOPER GLUCOSE LEVEL, SYRINGE STAT 02/25/2018 5:03 PM SSRS DEVELOPER IONIZED CALCIUM, ARTERIAL STAT 02/25/2018 5:03 PM SSRS DEVELOPER HEMOGLOBIN, SYRINGE STAT 02/25/2018 5:03 PM SSRS DEVELOPER POTASSIUM, SYRINGE STAT 02/25/2018 5:03 PM SSRS DEVELOPER ARTERIAL BLOOD GAS, STAT 02/25/2018 CORRECTED 5:03 PM SSRS DEVELOPER SODIUM LEVEL, SYRINGE STAT 02/25/2018 5:03 PM SSRS DEVELOPER ACTIVATED CLOTTING TIME Routine 02/25/2018 4:59 PM SSRS DEVELOPER GLUCOSE LEVEL, SYRINGE STAT 02/25/2018 4:30 PM SSRS DEVELOPER IONIZED CALCIUM, ARTERIAL STAT 02/25/2018 4:30 PM SSRS DEVELOPER HEMOGLOBIN, SYRINGE STAT 02/25/2018 4:30 PM SSRS DEVELOPER POTASSIUM, SYRINGE STAT 02/25/2018 4:30 PM SSRS DEVELOPER SODIUM LEVEL, SYRINGE STAT 02/25/2018 4:30 PM SSRS DEVELOPER ARTERIAL BLOOD GAS, STAT 02/25/2018 CORRECTED 4:30 PM SSRS DEVELOPER ACTIVATED CLOTTING TIME Routine 02/25/2018 4:25 PM SSRS DEVELOPER TRANSFUSE RED BLOOD CELLS Routine 02/25/2018 4:22 PM SSRS DEVELOPER GLUCOSE LEVEL, SYRINGE STAT 02/25/2018 4:00 PM SSRS DEVELOPER IONIZED CALCIUM, ARTERIAL STAT 02/25/2018 4:00 PM SSRS DEVELOPER HEMOGLOBIN, SYRINGE STAT 02/25/2018 4:00 PM SSRS DEVELOPER SODIUM LEVEL, SYRINGE STAT 02/25/2018 4:00 PM SSRS DEVELOPER POTASSIUM, SYRINGE STAT 02/25/2018 4:00 PM SSRS DEVELOPER ARTERIAL BLOOD GAS, STAT 02/25/2018 CORRECTED 4:00 PM SSRS DEVELOPER ACTIVATED CLOTTING TIME Routine 02/25/2018 3:57 PM SSRS DEVELOPER ACTIVATED CLOTTING TIME Routine 02/25/2018 3:32 PM SSRS DEVELOPER MS AN ELECTIVE Routine 02/25/2018 ENDOTRACHEAL AIRWAY 3:27 PM SSRS DEVELOPER Procedure Note - Evette Cruz - 02/25/2018 3:27 PM SSRS DEVELOPER Airway Date/Time: 02/25/2018 2:15 PM Performed by: [...] GLUCOSE LEVEL, SYRINGE STAT 02/25/2018 3:08 PM SSRS DEVELOPER IONIZED CALCIUM, ARTERIAL STAT 02/25/2018 3:08 PM SSRS DEVELOPER HEMOGLOBIN, SYRINGE STAT 02/25/2018 3:08 PM SSRS DEVELOPER POTASSIUM, SYRINGE STAT 02/25/2018 3:08 PM SSRS DEVELOPER ARTERIAL BLOOD GAS, STAT 02/25/2018 CORRECTED 3:08 PM SSRS DEVELOPER SODIUM LEVEL, SYRINGE STAT 02/25/2018 3:08 PM SSRS DEVELOPER PA CATHETER Routine 02/25/2018 3:07 PM SSRS DEVELOPER Procedure Note - Seema Deshpande MD - 02/25/2018 3:07 PM SSRS DEVELOPER PA catheter Performed by: Seema Deshpande MD [...] solutions labeled Procedure details: PA Catheter Type: PRICER BAGGER and oximetric PA Catheter Size: 9 PA Catheter Side: Right PA Catheter Site: Internal jugular PA Catheter placed: PA Catheter placed without difficulty Waveform: PA Catheter wave confirmed Post-proc edure: No arrhythmia : No arrhythmia s noted Patient tolerance: Patient tolerated the procedure well with no immediate complicati ons CENTRAL LINE Routine 02/25/2018 3:07 PM SSRS DEVELOPER Procedure Note - Seema Deshpande MD - 02/25/2018 3:07 PM SSRS DEVELOPER Central line Performed by: Seema Deshpande MD [...] ons CENTRAL LINE Routine 02/25/2018 3:06 PM SSRS DEVELOPER Procedure Note - Seema Deshpande MD - 02/25/2018 3:06 PM SSRS DEVELOPER Central line Performed by: Seema Deshpande MD [...] ons ARTERIAL LINE Routine 02/25/2018 3:05 PM SSRS DEVELOPER Procedure Note - Seema Deshpande MD - 02/25/2018 3:05 PM SSRS DEVELOPER Arterial line Performed by: Seema Deshpande MD [...] ACTIVATED CLOTTING TIME Routine 02/25/2018 3:05 PM SSRS DEVELOPER MS AN ELECTIVE Routine 02/25/2018 ENDOTRACHEAL AIRWAY 3:03 PM SSRS DEVELOPER Procedure Note - Seema Deshpande MD - 02/25/2018 3:03 PM SSRS DEVELOPER ANESTHESIA INTUBATION Date/Time: 02/25/2018 2:28 PM Performed by: Seema Deshpande MD Authorized by: Seema Deshpande MD Location: [place] Urgency: Elective Difficult Airway: No Anesthesio logist: Seema Deshpande MD Resident/C RNA/AA: Evtete Cruz Performed by: anesthesio logist Preoxygena aniyah [...] SURGICAL PATHOLOGY Routine 02/25/2018 REQUEST 9:10 AM SSRS DEVELOPER IRON LEVEL Routine 02/21/2018 Preop cardiovascular exam 4:03 PM SSRS DEVELOPER Pre-op testing XR CHEST 2 VW Routine 02/21/2018 Preop cardiovascular exam 3:18 PM SSRS DEVELOPER SPIROMETRY Routine 02/21/2018 Preop 2:13 PM SSRS DEVELOPER pulmonary/respiratory exam Preop examination ECG PRE/POST OP Routine 02/21/2018 Preop cardiovascular exam 1:33 PM SSRS DEVELOPER Pre-op testing PREPARE RBC Routine 02/21/2018 1:30 PM SSRS DEVELOPER TYPE AND SCREEN Routine 02/21/2018 Preop cardiovascular exam 1:30 PM SSRS DEVELOPER Pre-op testing URINE CULTURE Routine 02/21/2018 1:30 PM SSRS DEVELOPER HEMOGLOBIN A1C Routine 02/21/2018 Preop cardiovascular exam 1:29 PM SSRS DEVELOPER FERRITIN LEVEL Routine 02/21/2018 Preop cardiovascular exam 1:24 PM SSRS DEVELOPER Pre-op testing FOLATE LEVEL Routine 02/21/2018 Preop cardiovascular exam 1:24 PM SSRS DEVELOPER Pre-op testing TOTAL IRON BINDING Routine 02/21/2018 Preop cardiovascular exam CAPACITY 1:24 PM SSRS DEVELOPER Pre-op testing VITAMIN B12 LEVEL Routine 02/21/2018 Preop cardiovascular exam 1:24 PM SSRS DEVELOPER Pre-op testing URINALYSIS SCREEN AND Routine 02/21/2018 Preop cardiovascular exam MICROSCOPY, WITH REFLEX 1:22 PM SSRS DEVELOPER Pre-op testing TO CULTURE ESTIMATED GFR Routine 02/21/2018 1:16 PM SSRS DEVELOPER PROTHROMBIN TIME WITH INR Routine 02/21/2018 Preop cardiovascular exam 1:16 PM SSRS DEVELOPER Pre-op testing PARTIAL THROMBOPLASTIN Routine 02/21/2018 Preop cardiovascular exam TIME (PTT) 1:16 PM SSRS DEVELOPER Pre-op testing COMPREHENSIVE METABOLIC Routine 02/21/2018 Preop cardiovascular exam PANEL 1:16 PM SSRS DEVELOPER Pre-op testing HC COMPLETE BLD COUNT Routine 02/21/2018 Preop cardiovascular exam W/AUTO DIFF 1:16 PM SSRS DEVELOPER Pre-op testing after 03/09/2017 Results * CBC with platelet and differential (03/05/2018 5:24 AM SSRS DEVELOPER) Only the most recent of 7 results within the time period is included. WBC 13.17 (H) 4.50 - 11.00 k/uL [facility] RBC 3.77 (L) 4.20 - 5.50 m/uL [facility] HGB 10.5 (L) 12.0 - 16.0 g/dL [facility] HCT 32.9 (L) 37.0 - 47.0 % [facility] MCV 87.3 82.0 - 100.0 fL [facility] MCH 27.9 27.0 - 34.0 pg [facility] MCHC 31.9 31.0 - 37.0 g/dL [facility] RDW - SD 44.2 37.0 - 55.0 fL [facility] MPV 10.8 8.8 - 13.2 fL [facility] Platelet count 331 150 - 400 k/uL [facility] Nucleated RBC 0.00 /100 WBC [facility] Neutrophils 70.4 (H) 39.0 - 69.0 % [facility] Lymphocytes 18.4 (L) 25.0 - 45.0 % [facility] Monocytes 9.6 0.0 - 10.0 % [facility] Eosinophils 0.4 0.0 - 5.0 % [facility] Basophils 0.2 0.0 - 1.0 % [facility] Immature granulocytes 1.0Comment: "Immature 0.0 - 1.0 % [facility] granulocytes" (promyelocytes, HOSPITAL myelocytes, metamyelocytes) Specimen Blood Performing Organization Address City/[facility] Phone Number [facility] [place] [address] PATHOLOGY AND [facility] MEDICINE [address] * Estimated GFR (03/05/2018 4:00 AM SSRS DEVELOPER) Only the most recent of 10 results within the time period is included. Estimated GFR 57 (A) mL/min/1.73 m2 [facility] Comment: HOSPITAL CatergoryUnitsInte rpretation G1 >=90 Normal or high G2 60-89Mildly decreased L1p62-42 Mildly to moderately decreased L1r89-09 Moderately to severely decreased G4 15-29Severely decreased G5 <15Kidney failure The eGFR was calculated using the Chronic Kidney Disease Epidemiology Collaboration (CKD-EPI) equation. Interpretation is based on recommendations of the National Kidney Foundation-Kidney Disease Outcomes Quality Initiative (NKF-KDOQI) published in 2014. Specimen Plasma specimen Performing Organization Address City/[facility] Phone Number [facility] [place] [address] PATHOLOGY AND GENOMIC MEDICINE [address] * Phosphorus level (03/05/2018 4:00 AM SSRS DEVELOPER) Only the most recent of 4 results within the time period is included. Phosphorus 3.9 2.4 - 4.5 mg/dL [facility] Specimen Plasma specimen Performing Organization Address City/[facility] Phone Number [facility] [place] [place] [address] PATHOLOGY AND GENOMIC MEDICINE [address] * Magnesium level (03/05/2018 4:00 AM SSRS DEVELOPER) Only the most recent of 6 results within the time period is included. Magnesium 1.9 1.6 - 2.4 mg/dL [facility] Specimen Plasma specimen Performing Organization Address City/[facility] Phone Number [facility] [place] [place] [address] PATHOLOGY AND [facility] MEDICINE [address] * Ionized calcium (03/05/2018 4:00 AM SSRS DEVELOPER) Only the most recent of 3 results within the time period is included. pH 7.54 [facility] Ionized calcium 1.07 (L) 1.11 - 1.32 mmol/L [facility] Specimen Plasma specimen Performing Organization Address [facility] Phone Number [facility] [place] [place] [address] PATHOLOGY AND [facility] MEDICINE [address] * Comprehensive metabolic panel (03/05/2018 4:00 AM SSRS DEVELOPER) Only the most recent of 3 results within the time period is included. Sodium 140 135 - 148 mEq/L [facility] Potassium 3.2 (L) 3.5 - 5.0 mEq/L [facility] Chloride 94 (L) 98 - 112 mEq/L [facility] CO2 28 24 - 31 mEq/L [facility] Anion gap 18@ANIO (H) 7 - 15 mEq/L [facility] BUN 16 8 - 23 mg/dL [facility] Creatinine 1.02 (H) 0.50 - 0.90 mg/dL [facility] Glucose 99 65 - 99 mg/dL [facility] Calcium 9.1 8.8 - 10.2 mg/dL [facility] Protein 6.5 6.3 - 8.3 g/dL [facility] Comment: HOSPITAL [place] 4.6-7.0 g/dL 1 week 4.4-7.6 g/dL 7 months-1year 5.1-7.3 g/dL 1-2 years5.6-7 .5 g/dL >3 years6.0-8 .0 g/dL 18-150 6.3-8.3 g/dL Albumin 2.6 (L) 3.5 - 5.0 g/dL [facility] A/G ratio 0.7 0.7 - 3.8 [facility] Alkaline phosphatase 127 (H) 35 - 104 U/L [facility] AST 35 10 - 35 U/L [facility] ALT 23 5 - 50 U/L [facility] Total bilirubin 1.2 0.0 - 1.2 mg/dL [facility] Specimen Plasma specimen Performing Organization Address City/[facility] Phone Number [facility] DEPARTMENT OF [address] [place] [address] PATHOLOGY AND GENOMIC MEDICINE [address] * POC glucose (03/03/2018 8:15 AM SSRS DEVELOPER) Only the most recent of 30 results within the time period is included. POC glucose 114 (H) 65 - 99 mg/dL [facility] Comment: HOSPITAL No Action Needed Meter ID: [id number] Slicing Machine Operator: Jose Manuel Acuña Performing Organization Address [facility] Phone Number [facility] DEPARTMENT OF [address] [place] [address] PATHOLOGY AND GENOMIC MEDICINE [address] * CBC hemogram (03/02/2018 5:45 AM SSRS DEVELOPER) Only the most recent of 2 results within the time period is included. WBC 11.73 (H) 4.50 - 11.00 k/uL [facility] RBC 4.09 (L) 4.20 - 5.50 m/uL [facility] HGB 11.4 (L) 12.0 - 16.0 g/dL [facility] HCT 36.6 (L) 37.0 - 47.0 % [facility] MCV 89.5 82.0 - 100.0 fL [facility] MCH 27.9 27.0 - 34.0 pg [facility] MCHC 31.1 31.0 - 37.0 g/dL [facility] RDW - SD 45.6 37.0 - 55.0 fL [facility] MPV 11.7 8.8 - 13.2 fL [facility] Platelet count 197 150 - 400 k/uL [facility] Nucleated RBC 0.00 /100 WBC [facility] Performing Organization Address City/[facility] Phone Number [facility] DEPARTMENT OF [address] [place] [address] PATHOLOGY AND GENOMIC MEDICINE [address] * Basic metabolic panel (03/02/2018 5:40 AM SSRS DEVELOPER) Only the most recent of 7 results within the time period is included. Sodium 136 135 - 148 mEq/L [facility] Potassium 3.9 3.5 - 5.0 mEq/L [facility] Chloride 97 (L) 98 - 112 mEq/L [facility] CO2 22 (L) 24 - 31 mEq/L [facility] Anion gap 17@ANIO (H) 7 - 15 mEq/L [facility] BUN 25 (H) 8 - 23 mg/dL [facility] Creatinine 0.99 (H) 0.50 - 0.90 mg/dL [facility] Glucose 94 65 - 99 mg/dL [facility] Calcium 9.5 8.8 - 10.2 mg/dL [facility] Specimen Plasma specimen Performing Organization Address City/[facility] Phone Number [facility] DEPARTMENT OF [address] [place] [address] PATHOLOGY AND GENOMIC MEDICINE [address] * Echocardiogram complete w contrast and 3D if needed (03/01/2018 3:57 PM [employer] DEVELOPER) Narrative Performed At [facility] Echocardiography Report [id number] [place] [address] Pat.Name:BATSHEVA LOPEZ Pat.ID:[id number] .Date: 03/01/2018 Refer.MD:BIN DC MD Exam Time: 3:13:00 PMStudy Type:Routine Echo Height:162cm Weight:94kg BSA: 1.98 m2 DOBAge:1950,67Y Sex: FEMALEBP:122/58 HR:95 bpmSonogrphr: SHANNAN Monroy Pat. Stat.:[facility] Study Status:Final Echo Event ID:[id number] Order ID:[id number] Reason for Study:post op MV replacement History [...] mmHgMV Area P1/2t2.6 cm2(4-6) 2D Parasternal Long [place] LVIDd5.3 cmIndex2.7 cm/m LV Mxgh745.6 g(87-129) IVSd 0.9 cmLVM Index 90.7 g/m2 LVPWd0.9 cmRWT0.4 Ao Rtd 3.3 cmIndex1.7 cm/m Signed 03/01/2018 07:05 PM Alonso Umana M.D. Procedure Note Interface, Radiology Results In - 03/01/2018 7:07 PM SSRS DEVELOPER Echocardiography Report [id number] [facility], [place] [address], [place] [address] Pat.Name: BATSHEVA LOPEZ.ID: [id number] .Date: 03/01/2018 Refer.MD: BIN DC MD Exam Time: 3:13:00 PM Study Type:Routine Echo Height: 162cm Weight: 94kg BSA: 1.98 m2 Age: 2 1950,67Y Sex: FEMALE BP: 122/58 HR: 95 bpm Sonogrphr: SHANNAN Monroy Pat. Stat.:Inpatient Room: [facility] Study Status:Final Echo Event ID:[id number] Order ID: [id number] Reason for Study:post op MV replacement History [...] P1/2t 2.6 cm2 (4-6) 2D Parasternal Long [place] LVIDd 5.3 cm Index 2.7 cm/m LV Mass 179.6 g (87-129) IVSd 0.9 cm LVM Index 90.7 g/m2 LVPWd 0.9 cm RWT 0.4 Ao Rtd 3.3 cm Index 1.7 cm/m Signed 03/01/2018 07:05 PM Alonso Umana M.D. Performing Organization Address City/State/Zipcode Phone Number [facility] [address] [place] [address] * US Renal (02/27/2018 5:20 PM SSRS DEVELOPER) Narrative Performed At EXAMINATION:US RENAL [facility] CLINICAL [...] No stones or hydronephrosis on either side. [facility]-[id number] Procedure Note Interface, Radiology Results Incoming - 02/27/2018 5:56 PM SSRS DEVELOPER EXAMINATION: US RENAL CLINICAL HISTORY: Renal failure [...] No stones or hydronephrosis on either side. [facility]-[id number] Performing Organization Address City/[facility]/[place] [address] * Urinalysis screen and microscopy, with reflex to culture (02/27/2018 3:30 PM SSRS DEVELOPER) Only the most recent of 2 results within the time period is included. Specimen site Clean catch [facility] Color, UA Charity [facility] Appearance, UA Clear [facility] Specific gravity, UA 1.016 1.001 - 1.035 [facility] pH, UA 5.0 5.0 - 8.5 [facility] Protein, UA 1+ (A) Negative [facility] Glucose, UA Negative Negative [facility] Ketones, UA Negative Negative [facility] Bilirubin, UA Negative Negative [facility] Blood, UA Moderate (A) Negative [facility] Nitrite, UA Negative Negative [facility] Urobilinogen, UA FootnoteComment: UNABLE TO <2.0 [facility] Leukocyte esterase, UA Moderate (A) Negative [facility] Epithelial cells, UA >20 /HPF [facility] WBC, UA 18 (H) 0 - 4 /HPF [facility] RBC, UA 2 0 - 5 /HPF [facility] Bacteria, UA Moderate (A) None seen [facility] Yeast, UA None seen [facility] Yeast with pseudohyphae, None seen [facility] Hyaline casts, UA 7 /LPF [facility] Specimen Urine Performing Organization Address City/[facility] Phone Number [address] [address] PATHOLOGY AND GENOMIC MEDICINE [address] * Urine eosinophils (02/27/2018 3:30 PM SSRS DEVELOPER) Eosinophils, urine NONE [facility] Performing Organization Address City/[facility] Phone Number [facility] DEPARTMENT OF [address] [place] [address] PATHOLOGY AND GENOMIC MEDICINE [address] * Urea nitrogen, urine, timed (02/27/2018 3:30 PM SSRS DEVELOPER) Urine urea nitrogen 679 mg/dL [facility] Specimen Urine Performing Organization Address [facility] Phone Number [facility] [place] [place] [address] PATHOLOGY AND GENOMIC MEDICINE [address] * Sodium level, urine, timed (02/27/2018 3:30 PM SSRS DEVELOPER) Urine sodium <20 mEq/L [facility] Urine sodium excretion SEE COMMENT [facility] Comment: HOSPITAL Varies with diet. Unable to calculate excretion due to low analyte concentration. Specimen Urine Performing Organization Address [facility] Phone Number [facility] [place] [place] [address] PATHOLOGY AND GENOMIC MEDICINE [address] * Creatinine level, urine, timed (02/27/2018 3:30 PM SSRS DEVELOPER) Urine creatinine 175 mg/dL [facility] Specimen Urine Performing Organization Address [facility] Phone Number [facility] [place] [place] [address] PATHOLOGY AND GENOMIC MEDICINE [address] * Gram stain (02/27/2018 3:30 PM SSRS DEVELOPER) Gram stain result Rare WBC's [facility] Occasional Gram negative rods [facility] Comment: Specimen Information Specimen Source: Urine Specimen Site: Clean catch Specimen Urine Performing Organization Address City/[facility] Phone Number [facility] [place] [place] [address] PATHOLOGY AND GENOMIC MEDICINE [address] * Urine culture (02/27/2018 3:30 PM SSRS DEVELOPER) Only the most recent of 2 results within the time period is included. Urine culture isolate Mixed maddison <=10-3 col/cc [facility] Comment: HOSPITAL Specimen Information Specimen Source: Urine Specimen Site: Clean catch Specimen Urine Performing Organization Address City/[facility]/Zipcode Phone Number [facility] [place] [place] [address] PATHOLOGY AND GENOMIC MEDICINE [facility] [place] [address] HOSPITAL * XR Chest 1 Vw Portable (02/27/2018 3:00 PM SSRS DEVELOPER) Only the most recent of 3 results within the time period is included. Narrative Performed At EXAMINATION:XR CHEST 1 VW PORTABLE [facility] CLINICAL HISTORY:marked leukocytosis COMPARISON:Yesterday IMPRESSION: Interval removal of the right IJ central line and right IJ sheath. No pneumothorax identified. Bibasilar opacities are slightly improved on the left and worse on the right, otherwise stable [facility]-[id number] Procedure Note Hm Interface, Radiology Results Incoming - 02/27/2018 3:07 PM SSRS DEVELOPER EXAMINATION: XR CHEST 1 VW PORTABLE CLINICAL HISTORY: marked leukocytosis COMPARISON: Yesterday IMPRESSION: Interval removal of the right IJ central line and right IJ sheath. No pneumothorax identified. Bibasilar opacities are slightly improved on the left and worse on the right, otherwise stable [facility]-[id number] Performing Organization Address City/State/Zipcode Phone Number [facility] [address] [place] [address] * Line/Drain Removal (02/26/2018 9:48 AM SSRS DEVELOPER) Narrative Performed At Gael Lopez Jr., PA-C [...] * ECG 12 lead (02/26/2018 4:55 AM SSRS DEVELOPER) Only the most recent of 2 results within the time period is included. Ventricular rate 75 [facility] Atrial rate 75 [facility] MS interval 152 [facility] QRSD interval 82 [facility] QT interval 454 [facility] QTC interval 506 [facility] P axis 1 57 [facility] QRS axis 1 16 [facility] T wave axis 8 [facility] EKG impression Normal sinus rhythm-Prolonged [facility] MUSE QT-Abnormal ECG-In automated comparison with ECG of 25-FEB-2018 21:29,-No significant change was found- Narrative Performed At Performing Organization Address City/State/Zipcode Phone Number [facility] MUSE [address] [place] [address] * Partial thromboplastin time, activated (02/25/2018 8:53 PM SSRS DEVELOPER) Only the most recent of 2 results within the time period is included. PTT 39.0 (H) 23.0 - 36.0 sec [facility] Comment: [facility] PTT therapeutic range for unfractionated heparin is 61.0-112.0 seconds which corresponds to Anti-Xa 0.3-0.7 U/ml. Specimen Blood Performing Organization Address [facility] Phone Number [facility] [place] [place] [address] PATHOLOGY AND [facility] MEDICINE [address] * Prothrombin time with INR (02/25/2018 8:53 PM SSRS DEVELOPER) Only the most recent of 3 results within the time period is included. Prothrombin time 18.4 (H) 11.5 - 14.5 sec [facility] INR 1.6 [facility] Comment: HOSPITAL The International Normalized Ratio (INR) is a therapeutic monitoring tool for patients who are stable on oral anticoagulant therapy. An INR of 2.0-3.0 is suggested for deep vein thrombosis/pulmonary embolism. Specimen Blood Performing Organization Address [facility] Phone Number [facility] DEPARTMENT OF [address] [place] [address] PATHOLOGY AND [facility] MEDICINE [address] * Ionized calcium, arterial (02/25/2018 8:51 PM SSRS DEVELOPER) Only the most recent of 7 results within the time period is included. Ionized calcium, arterial 1.01 (L) 1.11 - 1.32 mmol/L [facility] Specimen Blood Performing Organization Address City/[facility]/Zipcode Phone Number [facility] DEPARTMENT OF [address] [place] [address] PATHOLOGY AND [facility] MEDICINE [address] * Arterial blood gas (02/25/2018 8:51 PM SSRS DEVELOPER) pH, arterial 7.38 7.35 - 7.45 [facility] pCO2, arterial 37 35 - 45 mmHg [facility] pO2, arterial 238 (H) 80 - 90 mmHg [facility] Bicarbonate, arterial 21.5 21.0 - 28.0 mmol/L [facility] Base excess, arterial -3 (L) -2 - 2 mEq/L [facility] O2 saturation, arterial 100 95 - 100 % [facility] Specimen Blood Performing Organization Address City/State/Zipcode Phone Number [facility] DEPARTMENT OF [address] [place] [address] PATHOLOGY AND GENOMIC MEDICINE [address] * Transfuse RBC (02/25/2018 8:13 PM SSRS DEVELOPER) Only the most recent of 2 results within the time period is included. * XR Chest 2 Vw (02/25/2018 7:46 PM SSRS DEVELOPER) Only the most recent of 2 results [...] the superior cavoatrial junction. Right IJ approach Orlando-Poli catheter tip projecting over the main pulmonary [...] who repeated the findings and verbalized understanding. [facility]-[id number] Procedure Note Hm Interface, Radiology Results Incoming - 02/25/2018 7:57 PM SSRS DEVELOPER EXAMINATION: XR CHEST 2 VW CLINICAL HISTORY: [...] the superior cavoatrial junction. Right IJ approach Orlando-Poli catheter tip projecting over the main pulmonary [...] who repeated the findings and verbalized understanding. [facility]-[id number] Performing Organization Address City/[facility]/[place] [address] * Sodium level, syringe (02/25/2018 7:10 PM SSRS DEVELOPER) Only the most recent of 6 results within the time period is included. Sodium, syringe 138 135 - 148 mEq/L [facility] Specimen Blood Performing Organization Address [facility] Phone Number [facility] [place] [place] [address] PATHOLOGY AND [facility] MEDICINE [address] * Potassium, syringe (02/25/2018 7:10 PM SSRS DEVELOPER) Only the most recent of 6 results within the time period is included. Potassium, syringe 3.7 3.5 - 5.0 mEq/L [facility] Specimen Blood Performing Organization Address [facility] Phone Number [facility] [place] [place] [address] PATHOLOGY AND GENOMIC MEDICINE [address] * Hemoglobin, syringe (02/25/2018 7:10 PM SSRS DEVELOPER) Only the most recent of 6 results within the time period is included. Hemoglobin, syringe 7.8 (L) 12.0 - 16.0 g/dL [facility] Specimen Blood Performing Organization Address City/[facility] Phone Number [facility] [place] [place] [address] PATHOLOGY AND GENOMIC MEDICINE [address] * Glucose level, syringe (02/25/2018 7:10 PM SSRS DEVELOPER) Only the most recent of 6 results within the time period is included. Glucose, syringe 164 (H) 65 - 99 mg/dL [facility] Specimen Blood Performing Organization Address City/[facility] Phone Number [facility] [place] [place] [address] PATHOLOGY AND GENOMIC MEDICINE [address] * Arterial blood gas, corrected (02/25/2018 7:10 PM SSRS DEVELOPER) Only the most recent of 6 results within the time period is included. pH, arterial 7.38 7.35 - 7.45 [facility] pCO2, arterial 38 35 - 45 mmHg [facility] pO2, arterial 177 (H) 80 - 90 mmHg [facility] Temperature, Celsius 36.2 Degrees C [facility] O2 saturation, arterial 100 95 - 100 % [facility] pH, arterial corrected 7.39 [facility] pCO2, arterial corrected 37 mmHg [facility] pO2, arterial corrected 173 mmHg [facility] Base excess, arterial -2 -2 - 2 mEq/L [facility] Specimen Blood Performing Organization Address [facility] Phone Number [facility] [place] [place] [address] [address] * Fibrinogen (02/25/2018 7:10 PM SSRS DEVELOPER) Fibrinogen 272 200 - 450 mg/dL [facility] Specimen Blood Performing Organization Address City/[facility] Phone Number [facility] [place] [place] [address] PATHOLOGY AND GENOMIC MEDICINE [address] * Platelet count (02/25/2018 7:10 PM SSRS DEVELOPER) Platelet count 121 (L) 150 - 400 k/uL [facility] Performing Organization Address City/[facility] Phone Number [facility] [place] [place] [address] PATHOLOGY AND GENOMIC MEDICINE [address] * Activated clotting time (02/25/2018 6:36 PM SSRS DEVELOPER) Only the most recent of 8 results within the time period is included. Activated clotting time 125 96 - 152 sec [facility] Comment: HOSPITAL Meter ID: [id number] Slicing Machine Operator: Rosales Ferris Performing Organization Address City/State/Zipcode Phone Number [facility] DEPARTMENT OF [address] [place] [address] PATHOLOGY AND GENOMIC MEDICINE [address] * Surgical pathology request (02/25/2018 9:10 AM SSRS DEVELOPER) [facility] DEPARTMENT OF PATHOLOGY AND GENOMIC MEDICINE Surgical pathology report See link below for PDF Lab [facility] DEPARTMENT OF Report PATHOLOGY AND GENOMIC MEDICINE Result status This is Final Report for [facility] DEPARTMENT OF [id number] PATHOLOGY AND GENOMIC MEDICINE Performing Organization Address City/[facility] Phone Number [facility] DEPARTMENT OF [address] [place] [address] PATHOLOGY AND GENOMIC MEDICINE * Iron level (02/21/2018 4:03 PM SSRS DEVELOPER) Iron level 82 37 - 145 ug/dL [facility] Specimen Plasma specimen Performing Organization Address City/[facility] Phone Number [facility] DEPARTMENT OF [address] [place] [address] PATHOLOGY AND GENOMIC MEDICINE [address] * Spirometry (02/21/2018 2:13 PM SSRS DEVELOPER) FEV1 Pre 0.82 1.36 - 2.57 L [...] [facility] Narrative Performed At Performing Organization Address City/[facility] Phone Number [facility] [address] [place] [address] * ECG Pre/Post Op (02/21/2018 1:33 PM SSRS DEVELOPER) Ventricular rate 72 [facility] Atrial rate 72 [facility] MS interval 158 [facility] QRSD interval 88 [facility] QT interval 444 [facility] QTC interval 486 [facility] P axis 1 19 [facility] QRS axis 1 67 [facility] T wave axis 0 [facility] EKG impression Normal sinus rhythm-Moderate [facility] voltage criteria for LVH, may be normal variant-Nonspecific T wave abnormality-Prolonged QT-Abnormal ECG- Narrative Performed At Performing Organization Address [facility] Phone Number [facility] MUSE [address] [place] [address] * Prepare RBC (02/21/2018 1:30 PM SSRS DEVELOPER) Product name Red Blood Cells -1, Leukored [facility] Unit number [id number] [facility] Product code [id number] [facility] Dispense status Transfused [facility] Blood expiration date [facility] Blood type code 7300 [facility] Blood type B POSITIVE [facility] Product name Red Blood Cells -1, Leukored [facility] Unit number [id number] [facility] Product code [id number] [facility] Dispense status Transfused [facility] Blood expiration date [facility] Blood type code 7300 [facility] Blood type B POSITIVE [facility] Product name Red Cells AS1 Leukored Irrad [facility] Unit number [id number] [facility] Product code [id number] [facility] Dispense status Returned to BB not transfused [facility] Blood expiration date [facility] Blood type code 7300 [facility] Blood type B POSITIVE [facility] Product name Red Cells AS1 Leukored Irrad [facility] Unit number [id number] [facility] Product code [id number] [facility] Dispense status Returned to BB not transfused [facility] Blood expiration date [facility] Blood type code 7300 [facility] Blood type B POSITIVE [facility] Performing Organization Address City/State/Zipcode Phone Number [facility] DEPARTMENT OF [address] [place] [address] PATHOLOGY AND GENOMIC MEDICINE [address] * Type and screen (02/21/2018 1:30 PM SSRS DEVELOPER) ABO grouping B [facility] Rh type POS [facility] Antibody screen (gel) NEG [facility] Specimen Blood Performing Organization Address City/State/Zipcode Phone Number [facility] [place] [place] [address] PATHOLOGY AND GENOMIC MEDICINE [address] * Hemoglobin A1c (02/21/2018 1:29 PM SSRS DEVELOPER) Hemoglobin A1C 5.3 4.0 - 5.6 % [facility] Comment: HOSPITAL HbA1c cutoffs for diagnosing diabetes: 4.0% - 5.6%=normal 5.7% - 6.4%=increased risk for diabetes (prediabetes) >=6.5%=diabetes Goals for glycemic control (ADA 2016) < 7.0%Target for non adults with diabetes. More or less stringent targets may be appropriate for individual patients. <7.5% Target for Children and adolescents with type 1 diabetes. Specimen Blood Performing Organization Address City/State/Zipcode Phone Number [facility] DEPARTMENT OF [address] [place] [address] PATHOLOGY AND GENOMIC MEDICINE [address] * Total iron binding capacity (02/21/2018 1:24 PM SSRS DEVELOPER) Iron level 83 37 - 145 ug/dL [facility] Iron binding capacity 302 200 - 400 ug/dL [facility] % Saturation 27.5 15.0 - 38.0 % [facility] Specimen Plasma specimen Performing Organization Address City/State/[facility] Phone Number [facility] [place] [place] [address] PATHOLOGY AND [facility] MEDICINE [address] * Folate level (02/21/2018 1:24 PM SSRS DEVELOPER) Folate 12.3 4.8 - 24.2 ng/mL [facility] Specimen Serum Performing Organization Address City/[facility] Phone Number [facility] [place] [place] [address] PATHOLOGY AND [facility] MEDICINE [address] * Ferritin level (02/21/2018 1:24 PM SSRS DEVELOPER) Ferritin level 152 (H) 13 - 150 ng/mL [facility] Specimen Plasma specimen Performing Organization Address City/[facility] Phone Number [facility] [place] [place] [address] PATHOLOGY AND [facility] MEDICINE [address] * Vitamin B12 level (02/21/2018 1:24 PM SSRS DEVELOPER) Vitamin B12 707 211 - 946 pg/mL [facility] Comment: HOSPITAL Significant overlap exists between normal and deficiency states. However, most patients with deficiencies will have Serum B12 <200 pg/mL. Specimen Serum Performing Organization Address City/[facility] Phone Number [facility] [place] [place] [address] PATHOLOGY AND GENOMIC MEDICINE [address] after 03/09/2017 Insurance Payer Benefit Subscriber ID Type Phone Address Plan / Group BCBS MEDICARE BLUE xxxxxxxxxxxx HMO MEDICARE ADVANTAGE HMO Advance Directives Patient has advance care planning documents on file. For more information, narendra gipson contact: [facility] Dunlap[address] [place] [address]
[2018-03-10] MEDS ORDERED: MORPHINE SULFATE INJ 4 MG/ML INJ IV ONE (13:00)
[2018-03-10] MEDS ORDERED: ULTRAM50 MG PO (14:19)
--- NOTE | 2018-03-10 15:11 | Diagnostic Imaging Report ---
EXAM: CT Chest WITH contrast 03/10/2018 12:22 PM INDICATION: ^R/O PNEUMONIA ^[id number] ^1230 ^N COMPARISON: Same day chest x-ray TECHNIQUE: Chest was scanned utilizing a multidetector helical scanner from the lung apex through the level of the adrenal glands without administration of IV contrast. Coronal and sagittal reformations were obtained. Routine protocol was performed. IV CONTRAST: 100 mL of Isovue-370 COMPLICATIONS: None RADIATION DOSE: Total DLP: 546.03 mGy*cm Estimated effective dose: (DLP x 0.014 x size factor) mSv CTDIvol has been reviewed. It is below the limits set by the Radiation Protocol Committee (RPC). FINDINGS: LINES/ TUBES: None. LUNGS AND AIRWAYS: Moderate size right pleural effusion with adjacent compressive atelectasis of the most of the right lower lobe. Trace left pleural effusion. Left lower lobe linear atelectasis/scarring. Pulmonary vascular congestion and mild interstitial edema. 4 mm right upper lobe nodule (series 3, image 21). Airways are normal. PLEURA: The pleural spaces are clear. HEART AND MEDIASTINUM: No mediastinal, hilar or axillary lymphadenopathy. Cardiomegaly.. There is no pericardial effusion. Main pulmonary artery measures 3.4 cm, suggestive of pulmonary hypertension. Mild atherosclerotic calcification of aorta and coronary arteries. Adjacent to the ascending thoracic aorta, there is a region of irregular hyperdensities abutting the anterior ascending aorta (series 2, image 26) with surrounding complex fluid. UPPER ABDOMEN: Reflux of contrast into the IVC and hepatic veins, representing right heart insufficiency. Partially seen right renal superior pole hypodensity, likely a cyst BONES: The visualized bony thorax is within normal limits. Median sternotomy wires. SOFT TISSUES: Mild anterior chest wall subcutaneous emphysema, probably postsurgical. IMPRESSION: 1. Cardiomegaly, pulmonary vascular congestion, mild interstitial edema, and moderate size right pleural effusion. Consolidation adjacent to the right pleural effusion is probably compressive atelectasis and less likely to represent pneumonia. 2. Small hyperdensities anterior to the ascending thoracic aorta with adjacent complex fluid, suspicious for mild aortic injury at this level with small adjacent hematoma. Recommend close monitoring and follow-up in 24 hours with CTA of the chest. Findings discussed with Subha Wheeler at 3:00 PM, on 03/10/2018 Signed by: Dr. Puneet Gamino MD on 03/10/2018 3:08 PM
[2018-03-10 16:22] VITALS: BP 126/65
--- NOTE | 2018-03-10 16:25 | NUR ---
nurses supervisor called and said that arrangement is being made to transfer patient to the medical center per Dr. Freire and Dr. Dc's orders. Charge nurse notified.
--- NOTE | 2018-03-10 16:55 | NUR ---
Called to notify Dr. Reynoso that patient is being transferred to the [facility]. He stated he is aware. No other orders received
[2018-03-10] MEDS ORDERED: FUROSEMIDE INJ 10 MG/ML 4 ML VIAL IV SCH (17:00)
--- NOTE | 2018-03-10 17:47 | NUR ---
Report called to [facility] , , report given to ALBARO Javier . Patient is going to [facility]. The patient is agreeable to transfer
[2018-03-10 17:48] LABS: CREATINE KINASE MB 2.5 ng/mL (0-5.0)
[2018-03-10] MEDS ORDERED: SODIUM CHLORIDE 0.9% 50ML 50 ML ONE (18:12)
[2018-03-10] MEDS ORDERED: IOPAMIDOL 370 MG/ML 200 ML INFUS..BTL INJ ONE (18:12)
[2018-03-10 20:00] VITALS: BP 114/53
--- NOTE | 2018-03-10 20:30 | NUR ---
Pt d/c to [facility] via stretcher by EMS. A&Ox4. Pain decreased to 5/10 generalized. 20g left AC, flushed with 10ml NS. tele removed. No acute distress noted. Family at side.
== END 2018-03-10 20:29 | disposition other institution (70) ==
LOC: ER 08:37 → ERHOLD 12:10 → MED/SURG2 14:34
PROVIDERS: ADMIT Internal Medicine; ATTEND Internal Medicine
DX: I11.0 Hypertensive heart disease with heart failure (principal); I50.23 Acute on chronic systolic (congestive) heart failure; Z79.01 Long term (current) use of anticoagulants; Z95.2 Presence of prosthetic heart valve; Z88.5 Allergy status to narcotic agent; J90 Pleural effusion, not elsewhere classified; E78.5 Hyperlipidemia, unspecified
CPT/HCPCS: 36415; 71045; 71260; 80053; 82550; 82553; 83880; 84484; 85025; 93005; 99284; G0378; J1940; J2270; J2405; Q9967

== ENCOUNTER 2018-05-08 10:42 | Emergency (ER) | payer MEDICARE ==
[~2018-05-08] VITALS: Ht 162.6 cm; Wt 91.6 kg
[~2018-05-08 10:42] MED LIST changes: +ULTRAM50 MG PO
--- OUTSIDE RECORDS SUMMARY | 2018-05-08 10:46 | XMS REPORT | Clinical Summary ---
Author Author [facility] [facility] Address Unknown Phone Unavailable Care Team Providers Care Boat Cleaner Name Role Phone Asked, No Pcp PCP [...] 5 mg by 0 tablet mouth daily. Active potassium chloride Take 2 60 capsule [...] (six) hours as needed for mild pain. 04/04/2018 metoprolol tartrate Take 1 tablet 60 tablet 0 (LOPRESSOR) 25 mg tablet (25 mg total) 8 by mouth 2 (two) times a day for 30 days. 03/18/2018 HYDROcodone-acetaminophen Take 1 to 2 30 tablet 0 (NORCO) 5-325 mg per tabs every 6 8 tablet hours prn pain. 04/04/2018 furosemide (LASIX) 40 mg Take 1 tablet 30 tablet 0 tablet (40 mg total) 8 by mouth daily for 30 days. Active Problems Problem Noted Date Depressed LVEF (35-39%) 03/11/2018 Possible periaortic hematoma 03/11/2018 h/o MVR 02/25/18 03/11/2018 HERNANDEZ (acute kidney injury) 03/11/2018 Neutrophilic leukocytosis 03/11/2018 Anemia due to chronic illness 03/11/2018 Chest pain 03/10/2018 Mitral valve stenosis 02/25/2018 Encounters Care Team Description Date Type Specialty Bin Dc MD Dissection of aorta, unspecified portion of aorta (HCC) 04/16/2018 Hospital Radiology Encounter Bin Dc MD Dissection of aorta, unspecified portion of aorta (HCC) (Primary Dx) 04/11/2018 Transcribe Access Orders Sivakumar Colon MD Kazim, Lubna S., MD 03/10/2018 Hospital Cardiology - Encounter 03/13/2018 N/A 03/10/2018 Intake Access Bin Dc MD MITRAL VALVE REPLACEMENT (EPIC 31 MM VALVE) 02/25/2018 Surgery Cardiothoracic Surgery Clair Fisher APRN 02/25/2018 Anesthesia Cardiothoracic Surgery Event Bin Dc MD Non-rheumatic mitral valve stenosis (Primary Dx); Mitral stenosis 02/25/2018 Hospital Cardiology - Encounter 03/05/2018 Ami Avila, ALBARO 02/22/2018 Documentation Cardiovascular Bin Dc MD 02/21/2018 Hospital Radiology Encounter Clair Fisher, OFFICE NURSE PRACTITIONER Bin Dc MD 02/21/2018 Hospital Pulmonology Encounter Bin Dc MD Pre-op testing (Primary Dx); Preop cardiovascular exam; Preop pulmonary/respiratory exam; Preop examination 02/21/2018 Pre-Admit Pre-Admission Testing Testing Appointment Bin Dc MD Preop cardiovascular exam (Primary Dx) 02/21/2018 Transcribe Access Orders after 05/07/2017 Social History Date Tobacco Use Types Packs/Day [...] Vital Signs Time Taken Vital Sign Reading 03/13/2018 11:08 AM POLITICAL SCIENCE CHAIR Blood Pressure 128/64 03/13/2018 11:08 AM POLITICAL SCIENCE CHAIR Pulse 84 03/13/2018 11:08 AM POLITICAL SCIENCE CHAIR Temperature 36.3 C (97.3 F) 03/13/2018 11:08 AM POLITICAL SCIENCE CHAIR Respiratory Rate 18 03/13/2018 11:08 AM POLITICAL SCIENCE CHAIR Oxygen Saturation 96% - Inhaled Oxygen - Concentration 04/16/2018 12:06 PM POLITICAL SCIENCE CHAIR Weight 81.2 kg (179 lb) 04/16/2018 12:06 PM POLITICAL SCIENCE CHAIR Height 162.6 cm (5' 4") 04/16/2018 12:06 PM POLITICAL SCIENCE CHAIR Body Mass Index 30.73 Plan of Treatment Health Maintenance Due Date Last Done Comments BREAST CANCER SCREENING 2002 COLON CANCER SCREENING 2002 SHINGLES VACCINES (1 of 2002 2) PNEUMOCOCCAL 2017 POLYSACCHARIDE VACCINE AGE 65 AND OVER PNEUMOCOCCAL-13 2017 INFLUENZA VACCINE 10/17/2017 03/19/2016 Implants Device Identifier Shelf Expiration Date Model / Serial / Lot Implanted Type [place] 6500F / / Lead Pace Jimy Mycrdl Unipol Tmpry Cardiac N/A: N/A [employer] Streamline - [id number] Pacing [place] - Implanted: 02/25/2018 (Quantity not Leads or CARDIAC on file) Electrodes SRGRY or Accessorie s 6500F / / Lead Pace Jimy Mycrdl Unipol Tmpry Cardiac N/A: N/A [employer] Streamline - [id number] Pacing [place] - Implanted: 02/25/2018 (Quantity not Leads or CARDIAC on file) Electrodes SRGRY or Accessorie s 6500F / / Lead Pace Jimy Mycrdl Unipol Tmpry Cardiac N/A: N/A [employer] Streamline - [id number] Pacing [place] - Implanted: 02/25/2018 (Quantity not Leads or CARDIAC on file) Electrodes SRGRY or Accessorie s 04/17/2021 E100 [id number] 00 / [id number] / [id number] Valve Mitral Stntd Tiss Annls W/ Cardiovasc N/A: N/A [facility] Linx Ac Tech 31mm Epic - [id number] ular STRUCTURAL Implanted: 02/25/2018 (Quantity not Implants HEART on file) [id number] / / Clip Ligtng Weck Hemoclip Plus W/ Medical N/A: N/A TELEFLEX Tape Ti Lg - [id number] Clips for MEDICAL Implanted: 02/25/2018 (Quantity not Internal on file) Use 08 [id number] / / Implant Strnl Zipfix W/ Ndl Peek - Surgical N/A: N/A SYNTHES [id number] Implants; MAXIOFACIA Implanted: 02/25/2018 (Quantity not Expanders; L IMPLANT on file) Extenders; Surgical Wires 11/13/2022 [id number] / / [id number] [place] Perph Vasclr Ptfe 1.2x10cm Vascular N/A: N/A BARD 1.65mm - [id number] Graft PERIPHERAL Implanted: 02/25/2018 (Quantity not VASCULAR on file) 11/13/2022 [id number] / / [id number] [place] Perph Vasclr Ptfe 1.2x10cm Vascular N/A: N/A BARD 1.65mm - [id number] Graft PERIPHERAL Implanted: 02/25/2018 (Quantity not VASCULAR on file) Procedures Comments Procedure Name Priority Date/Time Associated Diagnosis ESTIMATED GFR Routine 04/16/2018 12:24 PM POLITICAL SCIENCE CHAIR POC CREATININE Routine 04/16/2018 12:24 PM POLITICAL SCIENCE CHAIR ECG 12-LEAD Routine 03/13/2018 7:53 AM POLITICAL SCIENCE CHAIR CBC HEMOGRAM Routine 03/13/2018 5:30 AM POLITICAL SCIENCE CHAIR ESTIMATED GFR Routine 03/13/2018 12:00 AM POLITICAL SCIENCE CHAIR PHOSPHORUS LEVEL Routine 03/13/2018 12:00 AM POLITICAL SCIENCE CHAIR IONIZED CALCIUM Routine 03/13/2018 12:00 AM POLITICAL SCIENCE CHAIR MAGNESIUM LEVEL Routine 03/13/2018 12:00 AM POLITICAL SCIENCE CHAIR BASIC METABOLIC PANEL Routine 03/13/2018 12:00 AM POLITICAL SCIENCE CHAIR POC GLUCOSE Routine 03/12/2018 12:05 PM POLITICAL SCIENCE CHAIR POC GLUCOSE Routine 03/12/2018 7:37 AM POLITICAL SCIENCE CHAIR XR CHEST 1 VW PORTABLE Routine 03/12/2018 6:04 AM POLITICAL SCIENCE CHAIR ECG 12-LEAD Routine 03/12/2018 5:01 AM POLITICAL SCIENCE CHAIR POC GLUCOSE Routine 03/12/2018 4:13 AM POLITICAL SCIENCE CHAIR ESTIMATED GFR Routine 03/12/2018 1:49 AM POLITICAL SCIENCE CHAIR PHOSPHORUS LEVEL Routine 03/12/2018 1:49 AM POLITICAL SCIENCE CHAIR MAGNESIUM LEVEL Routine 03/12/2018 1:49 AM POLITICAL SCIENCE CHAIR IONIZED CALCIUM Routine 03/12/2018 1:49 AM POLITICAL SCIENCE CHAIR BASIC METABOLIC PANEL Routine 03/12/2018 1:49 AM POLITICAL SCIENCE CHAIR PROTHROMBIN TIME WITH INR Routine 03/12/2018 1:40 AM POLITICAL SCIENCE CHAIR PARTIAL THROMBOPLASTIN Routine 03/12/2018 TIME (PTT) 1:40 AM POLITICAL SCIENCE CHAIR CBC HEMOGRAM Routine 03/12/2018 1:40 AM POLITICAL SCIENCE CHAIR POC GLUCOSE Routine 03/12/2018 12:13 AM POLITICAL SCIENCE CHAIR POC GLUCOSE Routine 03/11/2018 7:[address] ANGIOGRAM CHEST W WO STAT 03/11/2018 CONTRAST 7:01 PM POLITICAL SCIENCE CHAIR ESTIMATED GFR Routine 03/11/2018 4:28 PM POLITICAL SCIENCE CHAIR CREATININE LEVEL Routine 03/11/2018 4:28 PM POLITICAL SCIENCE CHAIR ECHOCARDIOGRAM 2D STAT 03/11/2018 COMPLETE W MMODE SPECTRAL 3:59 PM POLITICAL SCIENCE CHAIR COLOR DOPPLER ([id number]) POC GLUCOSE Routine 03/11/2018 3:50 PM POLITICAL SCIENCE CHAIR BLOOD CULTURE, AEROBIC & Routine 03/11/2018 ANAEROBIC 2:40 PM POLITICAL SCIENCE CHAIR TYPE AND SCREEN Routine 03/11/2018 2:39 PM POLITICAL SCIENCE CHAIR URINALYSIS SCREEN AND Routine 03/11/2018 MICROSCOPY, WITH REFLEX 2:00 PM POLITICAL SCIENCE CHAIR TO CULTURE URINE CULTURE Routine 03/11/2018 2:00 PM POLITICAL SCIENCE CHAIR ESTIMATED GFR Routine 03/11/2018 11:18 AM POLITICAL SCIENCE CHAIR CREATININE LEVEL Routine 03/11/2018 11:18 AM POLITICAL SCIENCE CHAIR XR CHEST 1 VW PORTABLE Routine 03/11/2018 8:30 AM POLITICAL SCIENCE CHAIR HC COMPLETE BLD COUNT Routine 03/11/2018 W/AUTO DIFF 6:48 AM POLITICAL SCIENCE CHAIR ESTIMATED GFR Routine 03/11/2018 4:00 AM POLITICAL SCIENCE CHAIR HEPATIC FUNCTION PANEL Routine 03/11/2018 4:00 AM POLITICAL SCIENCE CHAIR BASIC METABOLIC PANEL Routine 03/11/2018 4:00 AM POLITICAL SCIENCE CHAIR HC COMPLETE BLD COUNT Routine 03/05/2018 W/AUTO DIFF 5:24 AM POLITICAL SCIENCE CHAIR ESTIMATED GFR Routine 03/05/2018 4:00 AM POLITICAL SCIENCE CHAIR IONIZED CALCIUM Routine 03/05/2018 4:00 AM POLITICAL SCIENCE CHAIR PHOSPHORUS LEVEL Routine 03/05/2018 4:00 AM POLITICAL SCIENCE CHAIR MAGNESIUM LEVEL Routine 03/05/2018 4:00 AM POLITICAL SCIENCE CHAIR COMPREHENSIVE METABOLIC Routine 03/05/2018 PANEL 4:00 AM POLITICAL SCIENCE CHAIR HC COMPLETE BLD COUNT Routine 03/04/2018 W/AUTO DIFF 8:30 AM POLITICAL SCIENCE CHAIR ESTIMATED GFR Routine 03/04/2018 4:00 AM POLITICAL SCIENCE CHAIR IONIZED CALCIUM Routine 03/04/2018 4:00 AM POLITICAL SCIENCE CHAIR PHOSPHORUS LEVEL Routine 03/04/2018 4:00 AM POLITICAL SCIENCE CHAIR MAGNESIUM LEVEL Routine 03/04/2018 4:00 AM POLITICAL SCIENCE CHAIR COMPREHENSIVE METABOLIC Routine 03/04/2018 PANEL 4:00 AM POLITICAL SCIENCE CHAIR POC GLUCOSE Routine 03/03/2018 8:15 AM POLITICAL SCIENCE CHAIR POC GLUCOSE Routine 03/02/2018 8:25 PM POLITICAL SCIENCE CHAIR POC GLUCOSE Routine 03/02/2018 5:06 PM POLITICAL SCIENCE CHAIR POC GLUCOSE Routine 03/02/2018 11:53 AM POLITICAL SCIENCE CHAIR POC GLUCOSE Routine 03/02/2018 8:00 AM POLITICAL SCIENCE CHAIR CBC HEMOGRAM Routine 03/02/2018 5:45 AM POLITICAL SCIENCE CHAIR ESTIMATED GFR Routine 03/02/2018 5:40 AM POLITICAL SCIENCE CHAIR BASIC METABOLIC PANEL Routine 03/02/2018 5:40 AM POLITICAL SCIENCE CHAIR POC GLUCOSE Routine 03/01/2018 9:03 PM POLITICAL SCIENCE CHAIR ECHOCARDIOGRAM 2D Routine 03/01/2018 COMPLETE W MMODE SPECTRAL 3:57 PM POLITICAL SCIENCE CHAIR COLOR DOPPLER ([id number]) POC GLUCOSE Routine 03/01/2018 12:24 PM POLITICAL SCIENCE CHAIR ESTIMATED GFR Routine 03/01/2018 2:24 AM POLITICAL SCIENCE CHAIR BASIC METABOLIC PANEL Routine 03/01/2018 2:24 AM POLITICAL SCIENCE CHAIR HC COMPLETE BLD COUNT Routine 03/01/2018 W/AUTO DIFF 2:10 AM POLITICAL SCIENCE CHAIR POC GLUCOSE Routine 02/28/2018 9:42 PM POLITICAL SCIENCE CHAIR POC GLUCOSE Routine 02/28/2018 6:02 PM POLITICAL SCIENCE CHAIR POC GLUCOSE Routine 02/28/2018 12:56 PM POLITICAL SCIENCE CHAIR POC GLUCOSE Routine 02/28/2018 7:41 AM POLITICAL SCIENCE CHAIR HC COMPLETE BLD COUNT Routine 02/28/2018 W/AUTO DIFF 4:58 AM POLITICAL SCIENCE CHAIR ESTIMATED GFR Routine 02/28/2018 4:00 AM POLITICAL SCIENCE CHAIR MAGNESIUM LEVEL Routine 02/28/2018 4:00 AM POLITICAL SCIENCE CHAIR BASIC METABOLIC PANEL Routine 02/28/2018 4:00 AM POLITICAL SCIENCE CHAIR POC GLUCOSE Routine 02/27/2018 8:49 PM POLITICAL SCIENCE CHAIR POC GLUCOSE Routine 02/27/2018 5:49 PM POLITICAL SCIENCE CHAIR US RENAL Routine 02/27/2018 5:20 PM POLITICAL SCIENCE CHAIR SODIUM LEVEL, URINE, Routine 02/27/2018 TIMED 3:30 PM POLITICAL SCIENCE CHAIR CREATININE LEVEL, URINE, Routine 02/27/2018 TIMED 3:30 PM POLITICAL SCIENCE CHAIR UREA NITROGEN, URINE, Routine 02/27/2018 TIMED 3:30 PM POLITICAL SCIENCE CHAIR URINE EOSINOPHILS Routine 02/27/2018 3:30 PM POLITICAL SCIENCE CHAIR URINALYSIS SCREEN AND Routine 02/27/2018 MICROSCOPY, WITH REFLEX 3:30 PM POLITICAL SCIENCE CHAIR TO CULTURE GRAM STAIN Routine 02/27/2018 3:30 PM POLITICAL SCIENCE CHAIR URINE CULTURE Routine 02/27/2018 3:30 PM POLITICAL SCIENCE CHAIR XR CHEST 1 VW PORTABLE Routine 02/27/2018 3:00 PM POLITICAL SCIENCE CHAIR ESTIMATED GFR Routine 02/27/2018 1:02 PM POLITICAL SCIENCE CHAIR BASIC METABOLIC PANEL Routine 02/27/2018 1:02 PM POLITICAL SCIENCE CHAIR POC GLUCOSE Routine 02/27/2018 12:04 PM POLITICAL SCIENCE CHAIR ANESTHESIA TELLY Routine 02/27/2018 9:12 AM POLITICAL SCIENCE CHAIR Procedure Note - Cinthia Garcia CRNA - 02/27/2018 9:12 AM POLITICAL SCIENCE CHAIR Procedure Performed: TELLY Start Time: 02/25/2018 3:15 [...] Inferior: normal 16- Apical Septal: normal 17- [place]: normal Valves Aortic Valve: Annulus normal. Stenosis [...] 45-50% POC GLUCOSE Routine 02/27/2018 7:25 AM POLITICAL SCIENCE CHAIR CBC HEMOGRAM Routine 02/27/2018 5:00 AM POLITICAL SCIENCE CHAIR ESTIMATED GFR Routine 02/27/2018 12:00 AM POLITICAL SCIENCE CHAIR PHOSPHORUS LEVEL Routine 02/27/2018 12:00 AM POLITICAL SCIENCE CHAIR IONIZED CALCIUM Routine 02/27/2018 12:00 AM POLITICAL SCIENCE CHAIR MAGNESIUM LEVEL Routine 02/27/2018 12:00 AM POLITICAL SCIENCE CHAIR BASIC METABOLIC PANEL Routine 02/27/2018 12:00 AM POLITICAL SCIENCE CHAIR POC GLUCOSE Routine 02/26/2018 9:04 PM POLITICAL SCIENCE CHAIR POC GLUCOSE Routine 02/26/2018 4:13 PM POLITICAL SCIENCE CHAIR POC GLUCOSE Routine 02/26/2018 11:42 AM POLITICAL SCIENCE CHAIR POC GLUCOSE Routine 02/26/2018 10:11 AM POLITICAL SCIENCE CHAIR XR CHEST 1 VW PORTABLE STAT 02/26/2018 10:10 AM POLITICAL SCIENCE CHAIR LINE/DRAIN REMOVAL Routine 02/26/2018 Non-rheumatic mitral 9:48 AM POLITICAL SCIENCE CHAIR valve stenosis POC GLUCOSE Routine 02/26/2018 8:00 AM POLITICAL SCIENCE CHAIR POC GLUCOSE Routine 02/26/2018 6:30 AM POLITICAL SCIENCE CHAIR POC GLUCOSE Routine 02/26/2018 5:09 AM POLITICAL SCIENCE CHAIR ECG 12-LEAD Routine 02/26/2018 4:55 AM POLITICAL SCIENCE CHAIR POC GLUCOSE Routine 02/26/2018 4:02 AM POLITICAL SCIENCE CHAIR POC GLUCOSE Routine 02/26/2018 3:03 AM POLITICAL SCIENCE CHAIR MAGNESIUM LEVEL Routine 02/26/2018 2:30 AM POLITICAL SCIENCE CHAIR ESTIMATED GFR Routine 02/26/2018 2:30 AM POLITICAL SCIENCE CHAIR HC COMPLETE BLD COUNT Routine 02/26/2018 W/AUTO DIFF 2:30 AM POLITICAL SCIENCE CHAIR BASIC METABOLIC PANEL Routine 02/26/2018 2:30 AM POLITICAL SCIENCE CHAIR POC GLUCOSE Routine 02/26/2018 1:48 AM POLITICAL SCIENCE CHAIR POC GLUCOSE Routine 02/26/2018 1:01 AM POLITICAL SCIENCE CHAIR POC GLUCOSE Routine 02/25/2018 11:44 PM POLITICAL SCIENCE CHAIR POC GLUCOSE Routine 02/25/2018 11:07 PM POLITICAL SCIENCE CHAIR POC GLUCOSE Routine 02/25/2018 10:15 PM POLITICAL SCIENCE CHAIR ECG 12-LEAD Routine 02/25/2018 9:29 PM POLITICAL SCIENCE CHAIR XR CHEST 1 VW PORTABLE Routine 02/25/2018 9:21 PM POLITICAL SCIENCE CHAIR PARTIAL THROMBOPLASTIN Routine 02/25/2018 TIME (PTT) 8:53 PM POLITICAL SCIENCE CHAIR PROTHROMBIN TIME WITH INR Routine 02/25/2018 8:53 PM POLITICAL SCIENCE CHAIR HC COMPLETE BLD COUNT Routine 02/25/2018 W/AUTO DIFF 8:53 PM POLITICAL SCIENCE CHAIR POC GLUCOSE Routine 02/25/2018 8:52 PM POLITICAL SCIENCE CHAIR IONIZED CALCIUM, ARTERIAL Routine 02/25/2018 8:51 PM POLITICAL SCIENCE CHAIR ARTERIAL BLOOD GAS Routine 02/25/2018 8:51 PM POLITICAL SCIENCE CHAIR ESTIMATED GFR Routine 02/25/2018 8:44 PM POLITICAL SCIENCE CHAIR PHOSPHORUS LEVEL Routine 02/25/2018 8:44 PM POLITICAL SCIENCE CHAIR MAGNESIUM LEVEL Routine 02/25/2018 8:44 PM POLITICAL SCIENCE CHAIR BASIC METABOLIC PANEL Routine 02/25/2018 8:44 PM POLITICAL SCIENCE CHAIR TRANSFUSE RED BLOOD CELLS Routine 02/25/2018 8:13 PM POLITICAL SCIENCE CHAIR XR CHEST 2 VW STAT 02/25/2018 7:46 PM POLITICAL SCIENCE CHAIR PLATELET COUNT Routine 02/25/2018 7:10 PM POLITICAL SCIENCE CHAIR FIBRINOGEN Routine 02/25/2018 7:10 PM POLITICAL SCIENCE CHAIR PROTHROMBIN TIME WITH INR Routine 02/25/2018 7:10 PM POLITICAL SCIENCE CHAIR GLUCOSE LEVEL, SYRINGE Routine 02/25/2018 7:10 PM POLITICAL SCIENCE CHAIR IONIZED CALCIUM, ARTERIAL Routine 02/25/2018 7:10 PM POLITICAL SCIENCE CHAIR HEMOGLOBIN, SYRINGE Routine 02/25/2018 7:10 PM POLITICAL SCIENCE CHAIR POTASSIUM, SYRINGE Routine 02/25/2018 7:10 PM POLITICAL SCIENCE CHAIR ARTERIAL BLOOD GAS, Routine 02/25/2018 CORRECTED 7:10 PM POLITICAL SCIENCE CHAIR SODIUM LEVEL, SYRINGE Routine 02/25/2018 7:10 PM POLITICAL SCIENCE CHAIR ACTIVATED CLOTTING TIME Routine 02/25/2018 6:36 PM POLITICAL SCIENCE CHAIR ACTIVATED CLOTTING TIME Routine 02/25/2018 5:47 PM POLITICAL SCIENCE CHAIR GLUCOSE LEVEL, SYRINGE STAT 02/25/2018 5:45 PM POLITICAL SCIENCE CHAIR IONIZED CALCIUM, ARTERIAL STAT 02/25/2018 5:45 PM POLITICAL SCIENCE CHAIR HEMOGLOBIN, SYRINGE STAT 02/25/2018 5:45 PM POLITICAL SCIENCE CHAIR SODIUM LEVEL, SYRINGE STAT 02/25/2018 5:45 PM POLITICAL SCIENCE CHAIR POTASSIUM, SYRINGE STAT 02/25/2018 5:45 PM POLITICAL SCIENCE CHAIR ARTERIAL BLOOD GAS, STAT 02/25/2018 CORRECTED 5:45 PM POLITICAL SCIENCE CHAIR ACTIVATED CLOTTING TIME Routine 02/25/2018 5:16 PM POLITICAL SCIENCE CHAIR GLUCOSE LEVEL, SYRINGE STAT 02/25/2018 5:03 PM POLITICAL SCIENCE CHAIR IONIZED CALCIUM, ARTERIAL STAT 02/25/2018 5:03 PM POLITICAL SCIENCE CHAIR HEMOGLOBIN, SYRINGE STAT 02/25/2018 5:03 PM POLITICAL SCIENCE CHAIR POTASSIUM, SYRINGE STAT 02/25/2018 5:03 PM POLITICAL SCIENCE CHAIR ARTERIAL BLOOD GAS, STAT 02/25/2018 CORRECTED 5:03 PM POLITICAL SCIENCE CHAIR SODIUM LEVEL, SYRINGE STAT 02/25/2018 5:03 PM POLITICAL SCIENCE CHAIR ACTIVATED CLOTTING TIME Routine 02/25/2018 4:59 PM POLITICAL SCIENCE CHAIR GLUCOSE LEVEL, SYRINGE STAT 02/25/2018 4:30 PM POLITICAL SCIENCE CHAIR IONIZED CALCIUM, ARTERIAL STAT 02/25/2018 4:30 PM POLITICAL SCIENCE CHAIR HEMOGLOBIN, SYRINGE STAT 02/25/2018 4:30 PM POLITICAL SCIENCE CHAIR POTASSIUM, SYRINGE STAT 02/25/2018 4:30 PM POLITICAL SCIENCE CHAIR SODIUM LEVEL, SYRINGE STAT 02/25/2018 4:30 PM POLITICAL SCIENCE CHAIR ARTERIAL BLOOD GAS, STAT 02/25/2018 CORRECTED 4:30 PM POLITICAL SCIENCE CHAIR ACTIVATED CLOTTING TIME Routine 02/25/2018 4:25 PM POLITICAL SCIENCE CHAIR TRANSFUSE RED BLOOD CELLS Routine 02/25/2018 4:22 PM POLITICAL SCIENCE CHAIR GLUCOSE LEVEL, SYRINGE STAT 02/25/2018 4:00 PM POLITICAL SCIENCE CHAIR IONIZED CALCIUM, ARTERIAL STAT 02/25/2018 4:00 PM POLITICAL SCIENCE CHAIR HEMOGLOBIN, SYRINGE STAT 02/25/2018 4:00 PM POLITICAL SCIENCE CHAIR SODIUM LEVEL, SYRINGE STAT 02/25/2018 4:00 PM POLITICAL SCIENCE CHAIR POTASSIUM, SYRINGE STAT 02/25/2018 4:00 PM POLITICAL SCIENCE CHAIR ARTERIAL BLOOD GAS, STAT 02/25/2018 CORRECTED 4:00 PM POLITICAL SCIENCE CHAIR ACTIVATED CLOTTING TIME Routine 02/25/2018 3:57 PM POLITICAL SCIENCE CHAIR ACTIVATED CLOTTING TIME Routine 02/25/2018 3:32 PM POLITICAL SCIENCE CHAIR CO AN ELECTIVE Routine 02/25/2018 ENDOTRACHEAL AIRWAY 3:27 PM POLITICAL SCIENCE CHAIR Procedure Note - Evette Cruz Ashok - 02/25/2018 3:27 PM POLITICAL SCIENCE CHAIR Airway Date/Time: 02/25/2018 2:15 PM Performed by: [...] GLUCOSE LEVEL, SYRINGE STAT 02/25/2018 3:08 PM POLITICAL SCIENCE CHAIR IONIZED CALCIUM, ARTERIAL STAT 02/25/2018 3:08 PM POLITICAL SCIENCE CHAIR HEMOGLOBIN, SYRINGE STAT 02/25/2018 3:08 PM POLITICAL SCIENCE CHAIR POTASSIUM, SYRINGE STAT 02/25/2018 3:08 PM POLITICAL SCIENCE CHAIR ARTERIAL BLOOD GAS, STAT 02/25/2018 CORRECTED 3:08 PM POLITICAL SCIENCE CHAIR SODIUM LEVEL, SYRINGE STAT 02/25/2018 3:08 PM POLITICAL SCIENCE CHAIR PA CATHETER Routine 02/25/2018 3:07 PM POLITICAL SCIENCE CHAIR Procedure Note - Seema Deshpande MD - 02/25/2018 3:07 PM POLITICAL SCIENCE CHAIR PA catheter Performed by: Seema Deshpande MD Authorized by: Seema Deshpande MD Patient Location: OR Start Time: 02/25/2018 2:51 PM End Time: 02/25/2018 2:58 PM Staff: Robert chacon: Seema Deshpande MD Resident/C HALLE/AA: Evette Cruz Performed by: Anesthesio logist Preprocedu re: patient identified , IV checked, site and side verified, risks and benefits discussed, procedure verified, surgical consent complete, patient position confirmed, monitors and equipment checked and pre-op evaluation complete MSBT: antiseptic used, all elements of maximal sterile barrier technique followed, hand hygiene performed, cap/gown used by other personnel and solutions labeled Procedure details: PA Catheter Type: TOOTH CUTTER and oximetric PA Catheter Size: 9 PA Catheter Side: Right PA Catheter Site: Internal jugular PA Catheter placed: PA Catheter placed without difficulty Waveform: PA Catheter wave confirmed Post-proc edure: No arrhythmia : No arrhythmia s noted Patient tolerance: Patient tolerated the procedure well with no immediate complicati ons CENTRAL LINE Routine 02/25/2018 3:07 PM POLITICAL SCIENCE CHAIR Procedure Note - Seema Deshpande MD - 02/25/2018 3:07 PM POLITICAL SCIENCE CHAIR Central line Performed by: Seema Deshpande MD Authorized by: Seema Deshpande MD Patient Location: OR Start Time: 02/25/2018 2:40 PM End Time: 02/25/2018 2:47 PM Staff: Anesthesio logist: Seema Deshpande MD Resident/C RNA/AA: [...] ons CENTRAL LINE Routine 02/25/2018 3:06 PM POLITICAL SCIENCE CHAIR Procedure Note - Seema Deshpande MD - 02/25/2018 3:06 PM POLITICAL SCIENCE CHAIR Central line Performed by: Seema Deshpande MD Authorized by: Seema Deshpande MD Patient Location: OR Start Time: 02/25/2018 2:31 PM End Time: 02/25/2018 2:40 PM Staff: Anesthesio logist: Seema Deshpande MD Resident/C RNA/AA: [...] ons ARTERIAL LINE Routine 02/25/2018 3:05 PM POLITICAL SCIENCE CHAIR Procedure Note - Seema Deshpande MD - 02/25/2018 3:05 PM POLITICAL SCIENCE CHAIR Arterial line Performed by: Seema Deshpande MD Authorized by: Seema Deshpande MD Patient Location: OR Start Time: 02/25/2018 2:20 PM End Time: 02/25/2018 2:25 PM Staff: Robert chacon: Seema Deshpande MD Performed by: Robert chacon Pre-proced ure: patient identified , IV checked, [...] ACTIVATED CLOTTING TIME Routine 02/25/2018 3:05 PM POLITICAL SCIENCE CHAIR CO AN ELECTIVE Routine 02/25/2018 ENDOTRACHEAL AIRWAY 3:03 PM POLITICAL SCIENCE CHAIR Procedure Note - Seema Deshpande MD - 02/25/2018 3:03 PM POLITICAL SCIENCE CHAIR ANESTHESIA INTUBATION Date/Time: 02/25/2018 2:28 PM Performed [...] SURGICAL PATHOLOGY Routine 02/25/2018 REQUEST 9:10 AM POLITICAL SCIENCE CHAIR IRON LEVEL Routine 02/21/2018 Preop cardiovascular exam 4:03 PM POLITICAL SCIENCE CHAIR Pre-op testing XR CHEST 2 VW Routine 02/21/2018 Preop cardiovascular exam 3:18 PM POLITICAL SCIENCE CHAIR SPIROMETRY Routine 02/21/2018 Preop 2:13 PM POLITICAL SCIENCE CHAIR pulmonary/respiratory exam Preop examination ECG PRE/POST OP Routine 02/21/2018 Preop cardiovascular exam 1:33 PM POLITICAL SCIENCE CHAIR Pre-op testing PREPARE RBC Routine 02/21/2018 1:30 PM POLITICAL SCIENCE CHAIR TYPE AND SCREEN Routine 02/21/2018 Preop cardiovascular exam 1:30 PM POLITICAL SCIENCE CHAIR Pre-op testing URINE CULTURE Routine 02/21/2018 1:30 PM POLITICAL SCIENCE CHAIR HEMOGLOBIN A1C Routine 02/21/2018 Preop cardiovascular exam 1:29 PM POLITICAL SCIENCE CHAIR FERRITIN LEVEL Routine 02/21/2018 Preop cardiovascular exam 1:24 PM POLITICAL SCIENCE CHAIR Pre-op testing FOLATE LEVEL Routine 02/21/2018 Preop cardiovascular exam 1:24 PM POLITICAL SCIENCE CHAIR Pre-op testing TOTAL IRON BINDING Routine 02/21/2018 Preop cardiovascular exam CAPACITY 1:24 PM POLITICAL SCIENCE CHAIR Pre-op testing VITAMIN B12 LEVEL Routine 02/21/2018 Preop cardiovascular exam 1:24 PM POLITICAL SCIENCE CHAIR Pre-op testing URINALYSIS SCREEN AND Routine 02/21/2018 Preop cardiovascular exam MICROSCOPY, WITH REFLEX 1:22 PM POLITICAL SCIENCE CHAIR Pre-op testing TO CULTURE ESTIMATED GFR Routine 02/21/2018 1:16 PM POLITICAL SCIENCE CHAIR PROTHROMBIN TIME WITH INR Routine 02/21/2018 Preop cardiovascular exam 1:16 PM POLITICAL SCIENCE CHAIR Pre-op testing PARTIAL THROMBOPLASTIN Routine 02/21/2018 Preop cardiovascular exam TIME (PTT) 1:16 PM POLITICAL SCIENCE CHAIR Pre-op testing COMPREHENSIVE METABOLIC Routine 02/21/2018 Preop cardiovascular exam PANEL 1:16 PM POLITICAL SCIENCE CHAIR Pre-op testing HC COMPLETE BLD COUNT Routine 02/21/2018 Preop cardiovascular exam W/AUTO DIFF 1:16 PM POLITICAL SCIENCE CHAIR Pre-op testing after 05/07/2017 Results * Estimated GFR (04/16/2018 12:24 PM POLITICAL SCIENCE CHAIR) Only the most recent of 16 results within the time period is included. Estimated GFR 39 (A) mL/min/1.73 m2 [facility] Comment: [facility]ITAL CatergoryUnitsInte rpretation G1 >=90 Normal or high G2 60-89Mildly decreased [id number] Mildly to moderately decreased [id number] Moderately to severely decreased G4 15-29Severely decreased G5 <15Kidney failure The eGFR was calculated using the Chronic Kidney Disease Epidemiology Collaboration (CKD-EPI) equation. Interpretation is based on recommendations of the National Kidney Foundation-Kidney Disease Outcomes Quality Initiative (NKF-KDOQI) published in 2014. Specimen Blood Performing Organization Address City/[facility] Phone Number [facility] [place] [address] PATHOLOGY AND GENOMIC MEDICINE [facility] * POC creatinine (04/16/2018 12:24 PM POLITICAL SCIENCE CHAIR) POC creatinine 1.6 (H) 0.5 - 0.9 mg/dl [facility] Comment: HOSPITAL Meter ID: [id number] [employer] Silvers[employer]: Shyam Lopez Specimen Blood Performing Organization Address City/[facility] Phone Number [facility] DEPARTMENT OF [address] [place] [address] PATHOLOGY AND GENOMIC MEDICINE [place] [facility] * ECG 12 lead (03/13/2018 7:53 AM POLITICAL SCIENCE CHAIR) Only the most recent of 4 results within the time period is included. Ventricular rate 82 [facility] Atrial rate 89 [facility] QRSD interval 84 [facility] QT interval 408 [facility] QTC interval 476 [facility] QRS axis 1 22 [facility] T wave axis 155 [facility] EKG impression Sinus rhythm with 1st degree [facility] MUSE AV block-ST & T wave abnormality, consider lateral ischemia-Prolonged QT-Abnormal ECG-In automated comparison with ECG of 12-MAR-2018 05:01,-Junctional rhythm has replaced Sinus rhythm- Narrative Performed At Performing Organization Address City/[facility] [place] [address] * CBC hemogram (03/13/2018 5:30 AM POLITICAL SCIENCE CHAIR) Only the most recent of 4 results within the time period is included. WBC 11.52 (H) 4.50 - 11.00 k/uL [facility] RBC 3.81 (L) 4.20 - 5.50 m/uL [facility] HGB 10.4 (L) 12.0 - 16.0 g/dL [facility] HCT 33.6 (L) 37.0 - 47.0 % [facility] MCV 88.2 82.0 - 100.0 fL [facility] MCH 27.3 27.0 - 34.0 pg [facility] MCHC 31.0 31.0 - 37.0 g/dL [facility] RDW - SD 44.7 37.0 - 55.0 fL [facility] MPV 10.5 8.8 - 13.2 fL [facility] Platelet count 457 (H) 150 - 400 k/uL [facility] Nucleated RBC 0.00 /100 WBC [facility] Specimen Blood Performing Organization Address City/[facility] Phone Number [facility] [place] [address] PATHOLOGY AND [facility] MEDICINE [address] * Phosphorus level (03/13/2018 12:00 AM POLITICAL SCIENCE CHAIR) Only the most recent of 6 results within the time period is included. Phosphorus 2.9 2.4 - 4.5 mg/dL [facility] Specimen Plasma specimen Performing Organization Address City/[facility] Phone Number [facility] [place] [address] PATHOLOGY AND [facility] MEDICINE [address] * Magnesium level (03/13/2018 12:00 AM POLITICAL SCIENCE CHAIR) Only the most recent of 8 results within the time period is included. Magnesium 2.1 1.6 - 2.4 mg/dL [facility] Specimen Plasma specimen Performing Organization Address City/[facility] Phone Number [facility] [place] [address] PATHOLOGY AND [facility] MEDICINE [address] * Ionized calcium (03/13/2018 12:00 AM POLITICAL SCIENCE CHAIR) Only the most recent of 5 results within the time period is included. pH 7.43 [facility] Ionized calcium 1.14 1.11 - 1.32 mmol/L [facility] Specimen Plasma specimen Performing Organization Address City/[facility] Phone Number [facility] [place] [address] PATHOLOGY AND GENOMIC MEDICINE [address] * Basic metabolic panel (03/13/2018 12:00 AM POLITICAL SCIENCE CHAIR) Only the most recent of 10 results within the time period is included. Sodium 136 135 - 148 mEq/L [facility] Potassium 4.3 3.5 - 5.0 mEq/L [facility] Chloride 97 (L) 98 - 112 mEq/L [facility] CO2 25 24 - 31 mEq/L [facility] Anion gap 14@ANIO 7 - 15 mEq/L [facility] BUN 15 8 - 23 mg/dL [facility] Creatinine 1.00 (H) 0.50 - 0.90 mg/dL [facility] Glucose 96 65 - 99 mg/dL [facility] Calcium 9.0 8.8 - 10.2 mg/dL [facility] Specimen Plasma specimen Performing Organization Address [facility] Phone Number [facility] [place] [address] PATHOLOGY AND GENOMIC MEDICINE [address] * POC glucose (03/12/2018 12:05 PM POLITICAL SCIENCE CHAIR) Only the most recent of 36 results within the time period is included. POC glucose 134 (H) 65 - 99 mg/dL [facility] Comment: [facility]PITAL [facility] Notified RN Meter ID: [id number] [employer] Silversmith: Silvana Robledo Performing Organization Address City/[facility] Phone Number [facility] [place] [address] PATHOLOGY AND GENOMIC MEDICINE [address] * XR Chest 1 Vw Portable (03/12/2018 6:04 AM POLITICAL SCIENCE CHAIR) Only the most recent of 5 results within the time period is included. Narrative Performed At EXAMINATION:XR CHEST 1 VW PORTABLE [facility] CLINICAL HISTORY:ICU ptstable with no clinical status changes COMPARISON:Most Recent Prior at [facility] IMPRESSION: Hypoventilation with enlarged heart and sternotomy wires. Basilar consolidation and effusions stable. [facility]-[id number] Procedure Note Hm Interface, Radiology Results Incoming - 03/12/2018 9:23 AM POLITICAL SCIENCE CHAIR EXAMINATION: XR CHEST 1 VW PORTABLE CLINICAL HISTORY: ICU pt stable with no clinical status changes COMPARISON: Most Recent Prior at [facility] IMPRESSION: Hypoventilation with enlarged heart and sternotomy wires. Basilar consolidation and effusions stable. [facility]-[id number] Performing Organization Address [facility] Phone Number [facility] [address] [place] [address] * Partial thromboplastin time, activated (03/12/2018 1:40 AM POLITICAL SCIENCE CHAIR) Only the most recent of 3 results within the time period is included. PTT 34.7 23.0 - 36.0 sec [facility] Comment: [facility] PTT therapeutic range for unfractionated heparin is 61.0-112.0 seconds which corresponds to Anti-Xa 0.3-0.7 U/ml. Specimen Blood Performing Organization Address [facility] Phone Number [facility] DEPARTMENT OF [address] [place] [address] PATHOLOGY AND GENOMIC MEDICINE [address] * Prothrombin time with INR (03/12/2018 1:40 AM POLITICAL SCIENCE CHAIR) Only the most recent of 4 results within the time period is included. Prothrombin time 15.4 (H) 11.5 - 14.5 sec [facility] INR 1.2 [facility] Comment: HOSPITAL The International Normalized Ratio (INR) is a therapeutic monitoring tool for patients who are stable on oral anticoagulant therapy. An INR of 2.0-3.0 is suggested for deep vein thrombosis/pulmonary embolism. Specimen Blood Performing Organization Address [facility] Phone Number [facility] DEPARTMENT OF [address] [place] [address] PATHOLOGY AND GENOMIC MEDICINE [address] * CTA Chest W Wo Contrast (03/11/2018 7:01 PM POLITICAL SCIENCE CHAIR) Narrative Performed At EXAM: CT ANGIOGRAM CHEST W WO CONTRAST [facility] CLINICAL HISTORY: fluid around the aorta with chest painconcern for hematoma after mvr TECHNIQUE:CT angiographic images of the chest were obtained during intravenous administration of iodinated contrast.Computerized, reformatted images and 3-D MIP images were obtained and archived (per CT pulmonary embolism protocol). CT scans are performed using radiation dose reduction techniques (iterative reconstruction and/or automated exposure control). Technical factors are evaluated and adjusted to ensure appropriate moderation of exposure. Automated dose management technology is applied to adjust radiation exposure while achieving a diagnostic quality image. COMPARISON:Chest radiograph, same day FINDINGS: Pulmonary arteries: Diagnostic quality of study is adequate for the evaluation of pulmonary embolism. There is no evidence of acute or chronic pulmonary embolism. No evidence of right heart strain. The main pulmonary artery measures 30 mm in luminal diameter. Aorta:The ascending aorta is nondilated. However, there is evidence for 2 foci of extraluminal hemorrhage anterior to the aorta at the level of the main pulmonary artery (axial image 44, series 2). In addition, there is surrounding periaortic hematoma; the constellation of findings are most consistent with active extravasation. A little further superiorly, there is a focal anterior aortic intraluminal flap consistent with an intimal tear/dissection. At the proximal aortic arch and level of the innominate artery takeoff, there is 2 additional punctate foci of extraluminal Mediastinum and mickey:No pathological adenopathy in the mickey, axillary, or mediastinum.No mediastinal mass or hematoma. Heart and pericardium:Heart size is mildly enlarged. Post surgical changes related to a mitral valve repair are noted. Midline structures are intact. Lungs: Moderately sized right and trace/small left-sided pleural effusions. Adjacent atelectasis. Specifically, partial right lower lobe collapse. No focal consolidation. No pneumothorax. Other: Thyroid gland is unremarkable.Esophagus is patent. Chest wall:Unremarkable. Upper abdomen:Right renal upper pole cyst measuring 3.5 cm. No acute abnormality detected with limited evaluation. Bones:Note is again made of intact midline sternotomy wires. No acute osseous injury seen. IMPRESSION: 1.Evidence for 2 foci of extraluminal hemorrhage anterior to the aorta at the level of the main pulmonary artery (axial image 44, series 2). In addition, there is surrounding periaortic hematoma; the constellation of findings are most consistent with active extravasation. A little further superiorly, there is a focal anterior aortic intraluminal flap consistent with an intimal tear/dissection. At the proximal aortic arch and level of the innominate artery takeoff, there is 2 additional punctate foci of extraluminal hemorrhage (axial image 35, series 2), also concerning for active arterial extravasation. 2.Negative CTA examination for pulmonary embolism. Findings were discussed with Dr. Staley at 03/11/2018 7:35 PM who verbalized understanding. [facility]-[id number] Procedure Note [facility], Radiology Results Incoming - 03/11/2018 7:43 PM POLITICAL SCIENCE CHAIR EXAM: CT ANGIOGRAM CHEST W WO CONTRAST CLINICAL HISTORY: fluid around the aorta with chest pain concern for hematoma after mvr TECHNIQUE: CT angiographic images of the chest were obtained during intravenous administration of iodinated contrast. Computerized, reformatted images and 3-D MIP images were obtained and archived (per CT pulmonary embolism protocol). CT scans are performed using radiation dose reduction techniques (iterative reconstruction and/or automated exposure control). Technical factors are evaluated and adjusted to ensure appropriate moderation of exposure. Automated dose management technology is applied to adjust radiation exposure while achieving a diagnostic quality image. COMPARISON: Chest radiograph, same day FINDINGS: Pulmonary arteries: Diagnostic quality of study is adequate for the evaluation of pulmonary embolism. There is no evidence of acute or chronic pulmonary embolism. No evidence of right heart strain. The main pulmonary artery measures 30 mm in luminal diameter. Aorta: The ascending aorta is nondilated. However, there is evidence for 2 foci of extraluminal hemorrhage anterior to the aorta at the level of the main pulmonary artery (axial image 44, series 2). In addition, there is surrounding periaortic hematoma; the constellation of findings are most consistent with active extravasation. A little further superiorly, there is a focal anterior aortic intraluminal flap consistent with an intimal tear/dissection. At the proximal aortic arch and level of the innominate artery takeoff, there is 2 additional punctate foci of extraluminal Mediastinum and mickey: No pathological adenopathy in the mickey, axillary, or mediastinum. No mediastinal mass or hematoma. Heart and pericardium: Heart size is mildly enlarged. Post surgical changes related to a mitral valve repair are noted. Midline structures are intact. Lungs: Moderately sized right and trace/small left-sided pleural effusions. Adjacent atelectasis. Specifically, partial right lower lobe collapse. No focal consolidation. No pneumothorax. Other: Thyroid gland is unremarkable. Esophagus is patent. Chest wall: Unremarkable. Upper abdomen: Right renal upper pole cyst measuring 3.5 cm. No acute abnormality detected with limited evaluation. Bones: Note is again made of intact midline sternotomy wires. No acute osseous injury seen. IMPRESSION: 1. Evidence for 2 foci of extraluminal hemorrhage anterior to the aorta at the level of the main pulmonary artery (axial image 44, series 2). In addition, there is surrounding periaortic hematoma; the constellation of findings are most consistent with active extravasation. A little further superiorly, there is a focal anterior aortic intraluminal flap consistent with an intimal tear/dissection. At the proximal aortic arch and level of the innominate artery takeoff, there is 2 additional punctate foci of extraluminal hemorrhage (axial image 35, series 2), also concerning for active arterial extravasation. 2. Negative CTA examination for pulmonary embolism. Findings were discussed with Dr. Staley at 03/11/2018 7:35 PM who verbalized understanding. [facility]-[id number] Performing Organization Address City/[facility]/[place] [address] * Creatinine level (03/11/2018 4:28 PM POLITICAL SCIENCE CHAIR) Only the most recent of 2 results within the time period is included. Creatinine 1.36 (H) 0.50 - 0.90 mg/dL [facility] Specimen Plasma specimen Performing Organization Address [facility] Phone Number [facility] DEPARTMENT OF [address] [place] [address] PATHOLOGY AND GENOMIC MEDICINE [address] * Echocardiogram complete w contrast and 3D if needed (03/11/2018 3:59 PM POLITICAL SCIENCE CHAIR) Narrative Performed At [facility] Echocardiography Report [address] [place] [address].Name:BATSHEVA LOPEZ Pat.ID:[id number] .Date: 03/11/2018Refer.MD:RICKY CARRIZALES MD Exam Time: 3:59:00 PMStudy Type:Routine Echo Height:64inWeight:197lb BSA: 1.95 m2 DOBAge:1950,67Y Sex: FEMALEBP:100/53 HR:82 bpmSonogrphr: SHANNAN Alexandra Pat. Stat.:Inpatient Room:[facility] Study Status:Final Echo Event ID:[id number] Order ID:[id number] Reason for Study:evaluate cardiac hematoma History / Clinical:Coronary Artery Disease, Hypertension Procedures:2D Echo, Colorflow Doppler, Portable, Stat, Intravenous Definity Contrast Race:D SUMMARY: LV EF is moderately depressed. Estimated EF is 35-39%. Bioprosthetic mitral valve. Estimated mean mitral valve gradient 5 mmHg at a heart rate of 85 b/min. Velocities noted to be elevated similar to prior study. Mild to moderate tricuspid regurgitation FINDINGS: LV: LV size is mildly enlarged. There is moderate concentric LV hypertrophy.LV EF is moderately depressed. Estimated EF is 35-39%.Septal motion is paradoxical. Overall wall motion ishypokinetic. RV: RV size is normal. Unable to assess RV systolic function. LA: LA volume is difficult to assess. RA: RA volume is difficult to assess. AO: Aortic root diameter is normal. JOELLE: No pericardial effusion. AV: No structural AV abnormalities noted. MV: Bioprosthetic mitral valve. Estimated mean mitral valve gradient5 mmHg at a heart rate of 85 b/min. PV: No structural PV abnormalities noted. TV: No structural TV abnormalities noted. Mild to moderate tricuspidregurgitation MEASUREMENTS: 2D Parasternal [place] LVOT 2 cmLA Ds4.5 cm LVIDd5.3 cmIndex2.7 cm/m Ao An2.2 cm LVIDs4.4 cmAo Rtd 3.2 cm Index1.7 cm/m LV%fs 16.6 % LV Gzhi728.2 g(87-129) IVSd 1.1 cmLVM Ogklv108.6 g/m2 LVPWd1.2 cmRWT0.4 LV EF Biplane NYCNJ816.8 ml (59-136) Index75.3 ml/m HR84 bpm LVESV 91.6 ekTkomx99 ml/m LV CO4.6 l/min LV SV 55.2 mlLV CI2.4 l/m/m2 LV EF 37.6 %(55-75) DOPPLER LVOT Stroke Vol LVOT 2 cmLVOT CO3.2 l/min LVOT TVI12.1 cmLVOT CI1.7 l/m/m2 LVOT Tm258 kjdaEB07 bpm LVOT SV 38 ml MV For Flow/Valve Assess MV pkVel 223.4 cm/sMV Dec T 198 msec MV pkPG 20 mmHgMV TVI39.1 cm MV Mean G5 mmHgMV Area P1/2t3.8 cm2(4-6) Signed 03/11/2018 06:20 PM Baljinder Benavidez MD Procedure Note Interface, Radiology Results In - 03/11/2018 6:20 PM [facility] Echocardiography Report [id number]Name: BATSHEVA LOPEZ.ID: [id number] .Date: 03/11/2018 Refer.MD: RICKY CARRIZALES MD Exam Time: 3:59:00 PM Study Type:Routine Echo Height: 64in Weight: 197lb BSA: 1.95 m2 Age: 2 1950,67Y Sex: FEMALE BP: 100/53 HR: 82 bpm Sonogrphr: SHANNAN Alexandra Pat. Stat.:Inpatient Room: [facility] Study Status:Final Echo Event ID:[id number] Order ID: [id number] Reason for Study:evaluate cardiac hematoma History / Clinical:Coronary Artery Disease, Hypertension Procedures:2D Echo, Colorflow Doppler, Portable, Stat, Intravenous Definity Contrast Race: D SUMMARY: LV EF is moderately depressed. Estimated EF is 35-39%. Bioprosthetic mitral valve. Estimated mean mitral valve gradient 5 mmHg at a heart rate of 85 b/min. Velocities noted to be elevated similar to prior study. Mild to moderate tricuspid regurgitation FINDINGS: LV: LV size is mildly enlarged. There is moderate concentric LV hypertrophy. LV EF is moderately depressed. Estimated EF is 35-39%. Septal motion is paradoxical. Overall wall motion is hypokinetic. RV: RV size is normal. Unable to assess RV systolic function. LA: LA volume is difficult to assess. RA: RA volume is difficult to assess. AO: Aortic root diameter is normal. JOELLE: No pericardial effusion. AV: No structural AV abnormalities noted. MV: Bioprosthetic mitral valve. Estimated mean mitral valve gradient 5 mmHg at a heart rate of 85 b/min. PV: No structural PV abnormalities noted. TV: No structural TV abnormalities noted. Mild to moderate tricuspid regurgitation MEASUREMENTS: 2D Parasternal [place] LVOT 2 cm LA Ds 4.5 cm LVIDd 5.3 cm Index 2.7 cm/m Ao An 2.2 cm LVIDs 4.4 cm Ao Rtd 3.2 cm Index 1.7 cm/m LV%fs 16.6 % LV Mass 233.2 g (87-129) IVSd 1.1 cm LVM Index 119.6 g/m2 LVPWd 1.2 cm RWT 0.4 LV EF Biplane LVEDV 146.8 ml (59-136) Index 75.3 ml/m HR 84 bpm LVESV 91.6 ml Index 47 ml/m LV CO 4.6 l/min LV SV 55.2 ml LV CI 2.4 l/m/m2 LV EF 37.6 % (55-75) DOPPLER LVOT Stroke Vol LVOT 2 cm LVOT CO 3.2 l/min LVOT TVI 12.1 cm LVOT CI 1.7 l/m/m2 LVOT Tm 258 msec HR 85 bpm LVOT SV 38 ml MV For Flow/Valve Assess MV pkVel 223.4 cm/s MV Dec T 198 msec MV pkPG 20 mmHg MV TVI 39.1 cm MV Mean G 5 mmHg MV Area P1/2t 3.8 cm2 (4-6) Signed 03/11/2018 06:20 PM Baljinder Benavidez MD Performing Organization Address [facility] Phone Number [facility] [address] [place] [address] * Blood culture, aerobic & anaerobic (03/11/2018 2:40 PM POLITICAL SCIENCE CHAIR) Blood culture isolate No growth after 5 days of [facility] incubation. HOSPITAL Comment: Specimen Information Specimen Source: Blood Specimen Site: Antecubital Right Specimen Blood Performing Organization Address [facility] Phone Number [facility] DEPARTMENT OF [address] [place] [address] PATHOLOGY AND GENOMIC MEDICINE [address] * Type and screen (03/11/2018 2:39 PM POLITICAL SCIENCE CHAIR) Only the most recent of 2 results within the time period is included. ABO grouping B [facility] Rh type POS [facility] Antibody screen (gel) NEG [facility] Specimen Blood Performing Organization Address [facility] Phone Number [facility] DEPARTMENT OF [address] [place] [address] PATHOLOGY AND GENOMIC MEDICINE [address] * Urinalysis screen and microscopy, with reflex to culture (03/11/2018 2:00 PM POLITICAL SCIENCE CHAIR) Only the most recent of 3 results within the time period is included. Specimen site Clean catch [facility] Color, UA Yellow [facility] Appearance, UA Clear [facility] Specific gravity, UA 1.027 1.001 - 1.035 [facility] pH, UA 5.0 5.0 - 8.5 [facility] Protein, UA Negative Negative [facility] Glucose, UA Negative Negative [facility] Ketones, UA Negative Negative [facility] Bilirubin, UA Negative Negative [facility] Blood, UA Negative Negative [facility] Nitrite, UA Negative Negative [facility] Urobilinogen, UA <2.0 <2.0 [facility] Leukocyte esterase, UA Negative Negative [facility] Epithelial cells, UA 8 /HPF [facility] WBC, UA 3 0 - 4 /HPF [facility] RBC, UA None seen 0 - 5 /HPF [facility] Bacteria, UA None seen None seen [facility] Yeast, UA None seen [facility] Yeast with pseudohyphae, None seen [facility] Specimen Urine Performing Organization Address City/[facility] Phone Number [facility] [place] [address] PATHOLOGY AND GENOMIC MEDICINE [address] * Urine culture (03/11/2018 2:00 PM POLITICAL SCIENCE CHAIR) Only the most recent of 3 results within the time period is included. Urine culture SEE COMMENTComment: [facility] Bacteriuria screen negative. HOSPITAL Performing Organization Address City/[facility] Phone Number [facility] [place] [address] PATHOLOGY AND GENOMIC MEDICINE [address] * CBC with platelet and differential (03/11/2018 6:48 AM POLITICAL SCIENCE CHAIR) Only the most recent of 8 results within the time period is included. WBC 16.80 (H) 4.50 - 11.00 k/uL [facility] RBC 3.80 (L) 4.20 - 5.50 m/uL [facility] HGB 10.4 (L) 12.0 - 16.0 g/dL [facility] HCT 33.9 (L) 37.0 - 47.0 % [facility] MCV 89.2 82.0 - 100.0 fL [facility] MCH 27.4 27.0 - 34.0 pg [facility] MCHC 30.7 (L) 31.0 - 37.0 g/dL [facility] RDW - SD 45.1 37.0 - 55.0 fL [facility] MPV 10.4 8.8 - 13.2 fL [facility] Platelet count 470 (H) 150 - 400 k/uL [facility] Nucleated RBC 0.00 /100 WBC [facility] Neutrophils 76.4 (H) 39.0 - 69.0 % [facility] Lymphocytes 12.5 (L) 25.0 - 45.0 % [facility] Monocytes 9.9 0.0 - 10.0 % [facility] Eosinophils 0.5 0.0 - 5.0 % [facility] Basophils 0.2 0.0 - 1.0 % [facility] Immature granulocytes 0.5Comment: "Immature 0.0 - 1.0 % [facility] granulocytes" (promyelocytes, HOSPITAL myelocytes, metamyelocytes) Specimen Blood Performing Organization Address City/[facility] Phone Number [facility] [place] [address] PATHOLOGY AND [facility] MEDICINE [address] * Hepatic function panel (03/11/2018 4:00 AM POLITICAL SCIENCE CHAIR) Albumin 2.7 (L) 3.5 - 5.0 g/dL [facility] Total bilirubin 0.8 0.0 - 1.2 mg/dL [facility] Bilirubin direct 0.3 0.0 - 0.3 mg/dL [facility] Alkaline phosphatase 109 (H) 35 - 104 U/L [facility] Protein 6.2 (L) 6.3 - 8.3 g/dL [facility] Comment: HOSPITAL 4.6-7.0 g/dL 1 week 4.4-7.6 g/dL 7 months-1year 5.1-7.3 g/dL 1-2 years5.6-7 .5 g/dL >3 years6.0-8 .0 g/dL 18-150 6.3-8.3 g/dL ALT 22 5 - 50 U/L [facility] AST 26 10 - 35 U/L [facility] Specimen Plasma specimen Performing Organization Address City/[facility] [place] [address] PATHOLOGY AND GENOMIC MEDICINE [address] * Comprehensive metabolic panel (03/05/2018 4:00 AM POLITICAL SCIENCE CHAIR) Only the most recent of 3 results within the time period is included. Sodium 140 135 - 148 mEq/L [facility] Potassium 3.2 (L) 3.5 - 5.0 mEq/L [facility] Chloride 94 (L) 98 - 112 mEq/L [facility] CO2 28 24 - 31 mEq/L [facility] Anion gap 18@ANIO (H) 7 - 15 mEq/L [facility] BUN 16 8 - 23 mg/dL [facility] Creatinine 1.02 (H) 0.50 - 0.90 mg/dL [facility] Glucose 99 65 - 99 mg/dL [facility] Calcium 9.1 8.8 - 10.2 mg/dL [facility] Protein 6.5 6.3 - 8.3 g/dL [facility] Comment: HOSPITAL 4.6-7.0 g/dL 1 week 4.4-7.6 g/dL 7 months-1year 5.1-7.3 g/dL 1-2 years5.6-7 .5 g/dL >3 years6.0-8 .0 g/dL 18-150 6.3-8.3 g/dL Albumin 2.6 (L) 3.5 - 5.0 g/dL [facility] A/G ratio 0.7 0.7 - 3.8 [facility] Alkaline phosphatase 127 (H) 35 - 104 U/L [facility] AST 35 10 - 35 U/L [facility] ALT 23 5 - 50 U/L [facility] Total bilirubin 1.2 0.0 - 1.2 mg/dL [facility] Specimen Plasma specimen Performing Organization Address City/State/Zipcode Phone Number [facility] DEPARTMENT OF [address] [place] [address] PATHOLOGY AND GENOMIC MEDICINE [address] * Echocardiogram complete w contrast and 3D if needed (03/01/2018 3:57 PM POLITICAL SCIENCE CHAIR) Narrative Performed At [facility] Echocardiography Report [address] [facility] [address], [place] [address] Pat.Name:BATSHEVA LOPEZ Maria Isabel.ID:[id number] .Date: 03/01/2018 Refer.MD:BIN DC MD Exam Time: 3:13:00 PMStudy Type:Routine Echo Height:162cm Weight:94kg BSA: 1.98 m2 DOBAge:1950,67Y Sex: FEMALEBP:122/58 HR:95 bpmSonogrphr: SHANNAN Monroy Pat. Stat.:Inpatient Room:[facility] Study Status:Final Echo Event ID:[id number] Order ID:[id number] Reason for Study:post op MV replacement History [...] mmHgMV Area P1/2t2.6 cm2(4-6) 2D Parasternal [place] LVIDd5.3 cmIndex2.7 cm/m LV Xxkk370.6 g(87-129) IVSd 0.9 cmLVM Index 90.7 g/m2 LVPWd0.9 cmRWT0.4 Ao Rtd 3.3 cmIndex1.7 cm/m Signed 03/01/2018 07:05 PM Alonso Umana M.D. Procedure Note Interface, Radiology Results In - 03/01/2018 7:07 PM POLITICAL SCIENCE CHAIR Echocardiography Report [address] [place] [address] Pat.Name: BATSHEVA LOPEZ Maria Isabel.ID: [id number] .Date: 03/01/2018 Refer.MD: BIN DC MD Exam Time: 3:13:00 PM Study Type:Routine Echo Height: 162cm Weight: 94kg BSA: 1.98 m2 Age: 2 1950,67Y Sex: FEMALE BP: 122/58 HR: 95 bpm Sonogrphr: SHANNAN Monroy Pat. Stat.:Inpatient Room: [facility] Study Status:Final Echo Event ID:[id number] Order ID: [id number] Reason for Study:post op MV replacement History [...] P1/2t 2.6 cm2 (4-6) 2D Parasternal [place] LVIDd 5.3 cm Index 2.7 cm/m LV Mass 179.6 g (87-129) IVSd 0.9 cm LVM Index 90.7 g/m2 LVPWd 0.9 cm RWT 0.4 Ao Rtd 3.3 cm Index 1.7 cm/m Signed 03/01/2018 07:05 PM Alonso Umana M.D. Performing Organization Address City/State/Zipcode Phone Number [facility] [address] [place] [address] * US Renal (02/27/2018 5:20 PM POLITICAL SCIENCE CHAIR) Narrative Performed At EXAMINATION:US RENAL RADIANT CLINICAL [...] No stones or hydronephrosis on either side. [facility]-[id number] Procedure Note Hm Interface, Radiology Results Incoming - 02/27/2018 5:56 PM POLITICAL SCIENCE CHAIR EXAMINATION: US RENAL CLINICAL HISTORY: Renal failure [...] No stones or hydronephrosis on either side. [facility]-[id number] Performing Organization Address City/[facility]/Zipcode Phone Number [facility] [address] [place] [address] * Urine eosinophils (02/27/2018 3:30 PM POLITICAL SCIENCE CHAIR) Eosinophils, urine NONE [facility] Performing Organization Address City/[facility] Phone Number [facility] [place] [address] PATHOLOGY AND [facility] MEDICINE [address] * Urea nitrogen, urine, timed (02/27/2018 3:30 PM POLITICAL SCIENCE CHAIR) Urine urea nitrogen 679 mg/dL [facility] Specimen Urine Performing Organization Address [facility] [place] [address] PATHOLOGY AND [facility] MEDICINE [address] * Sodium level, urine, timed (02/27/2018 3:30 PM POLITICAL SCIENCE CHAIR) Urine sodium <20 mEq/L [facility] Urine sodium excretion SEE COMMENT [facility] Comment: HOSPITAL Varies with diet. Unable to calculate excretion due to low analyte concentration. Specimen Urine Performing Organization Address [facility] Phone Number [facility] DEPARTMENT OF [address] [place] [address] PATHOLOGY AND GENOMIC MEDICINE [address] * Creatinine level, urine, timed (02/27/2018 3:30 PM POLITICAL SCIENCE CHAIR) Urine creatinine 175 mg/dL [facility] Specimen Urine Performing Organization Address City/[facility] Phone Number [facility] [place] [address] PATHOLOGY AND GENOMIC MEDICINE [address] * Gram stain (02/27/2018 3:30 PM POLITICAL SCIENCE CHAIR) Gram stain result Rare WBC's [facility] Occasional Gram negative rods HOSPITAL Comment: Specimen Information Specimen Source: Urine Specimen Site: Clean catch Specimen Urine Performing Organization Address City/[facility] Phone Number [facility] [place] [address] PATHOLOGY AND GENOMIC MEDICINE [address] * Line/Drain Removal (02/26/2018 9:48 AM POLITICAL SCIENCE CHAIR) Narrative Performed At Gael Lopez Jr., PA-C 02/26/20189:49 AM Line/Drain Removal Date/Time: 02/26/2018 9:48 AM Performed by: Gael Lopez Jr., PA-C Authorized by: Gael Lopez Jr., PA-C Pre-procedure details: Line or drain removed:Chest tube Chest Tube Removal: Chest tube removed from suction: Yes Sutures retied: Yes Removal procedure: Number of people performing procedure:1 Breath held: Yes Dressing applied::4x4 sterile gauze and occlusive * Ionized calcium, arterial (02/25/2018 8:51 PM POLITICAL SCIENCE CHAIR) Only the most recent of 7 results within the time period is included. Ionized calcium, arterial 1.01 (L) 1.11 - 1.32 mmol/L [facility] Specimen Blood Performing Organization Address City/[facility]/Zipcode Phone Number [facility] [place] [address] PATHOLOGY AND GENOMIC MEDICINE [address] * Arterial blood gas (02/25/2018 8:51 PM POLITICAL SCIENCE CHAIR) pH, arterial 7.38 7.35 - 7.45 [facility] pCO2, arterial 37 35 - 45 mmHg [facility] pO2, arterial 238 (H) 80 - 90 mmHg [facility] Bicarbonate, arterial 21.5 21.0 - 28.0 mmol/L [facility] Base excess, arterial -3 (L) -2 - 2 mEq/L [facility] O2 saturation, arterial 100 95 - 100 % [facility] Specimen Blood Performing Organization Address City/State/Zipcode Phone Number [facility] DEPARTMENT OF [address] [place] [address] PATHOLOGY AND GENOMIC MEDICINE [address] * Transfuse RBC (02/25/2018 8:13 PM POLITICAL SCIENCE CHAIR) Only the most recent of 2 results within the time period is included. * XR Chest 2 Vw (02/25/2018 7:46 PM POLITICAL SCIENCE CHAIR) Only the most recent of 2 results [...] the superior cavoatrial junction. Right IJ approach [place]-Poli catheter tip projecting over the main pulmonary [...] who repeated the findings and verbalized understanding. [facility]-[id number] Procedure Note Hm Interface, Radiology Results Incoming - 02/25/2018 7:57 PM POLITICAL SCIENCE CHAIR EXAMINATION: XR CHEST 2 VW CLINICAL HISTORY: [...] the superior cavoatrial junction. Right IJ approach [place]-Poli catheter tip projecting over the main pulmonary [...] who repeated the findings and verbalized understanding. [facility]-[id number] Performing Organization Address City/[facility] [place] [address] * Sodium level, syringe (02/25/2018 7:10 PM POLITICAL SCIENCE CHAIR) Only the most recent of 6 results within the time period is included. Sodium, syringe 138 135 - 148 mEq/L [facility] Specimen Blood Performing Organization Address [facility] Phone Number [facility] [place] [address] PATHOLOGY AND [facility] MEDICINE [address] * Potassium, syringe (02/25/2018 7:10 PM POLITICAL SCIENCE CHAIR) Only the most recent of 6 results within the time period is included. Potassium, syringe 3.7 3.5 - 5.0 mEq/L [facility] Specimen Blood Performing Organization Address [facility] Phone Number [facility] [place] [address] PATHOLOGY AND GENOMIC MEDICINE [address] * Hemoglobin, syringe (02/25/2018 7:10 PM POLITICAL SCIENCE CHAIR) Only the most recent of 6 results within the time period is included. Hemoglobin, syringe 7.8 (L) 12.0 - 16.0 g/dL [facility] Specimen Blood Performing Organization Address [facility] Phone Number [facility] [place] [address] PATHOLOGY AND GENOMIC MEDICINE [address] * Glucose level, syringe (02/25/2018 7:10 PM POLITICAL SCIENCE CHAIR) Only the most recent of 6 results within the time period is included. Glucose, syringe 164 (H) 65 - 99 mg/dL [facility] Specimen Blood Performing Organization Address City/[facility] Phone Number [facility] [place] [address] PATHOLOGY AND GENOMIC MEDICINE [address] * Arterial blood gas, corrected (02/25/2018 7:10 PM POLITICAL SCIENCE CHAIR) Only the most recent of 6 results within the time period is included. pH, arterial 7.38 7.35 - 7.45 [facility] pCO2, arterial 38 35 - 45 mmHg [facility] pO2, arterial 177 (H) 80 - 90 mmHg [facility] Temperature, Celsius 36.2 Degrees C [facility] O2 saturation, arterial 100 95 - 100 % [facility] pH, arterial corrected 7.39 [facility] pCO2, arterial corrected 37 mmHg [facility] pO2, arterial corrected 173 mmHg [facility] Base excess, arterial -2 -2 - 2 mEq/L [facility] Specimen Blood Performing Organization Address City/[facility] Phone Number [facility] [place] [address] PATHOLOGY AND GENOMIC MEDICINE [address] * Fibrinogen (02/25/2018 7:10 PM POLITICAL SCIENCE CHAIR) Fibrinogen 272 200 - 450 mg/dL [facility] Specimen Blood Performing Organization Address City/[facility] Phone Number [facility] [place] [address] PATHOLOGY AND GENOMIC MEDICINE [address] * Platelet count (02/25/2018 7:10 PM POLITICAL SCIENCE CHAIR) Platelet count 121 (L) 150 - 400 k/uL [facility] Performing Organization Address [facility] Phone Number [facility] [place] [address] PATHOLOGY AND GENOMIC MEDICINE [address] * Activated clotting time (02/25/2018 6:36 PM POLITICAL SCIENCE CHAIR) Only the most recent of 8 results within the time period is included. Activated clotting time 125 96 - 152 sec [facility] Comment: HOSPITAL Meter ID: [id number] [employer] Silversmith: Rosales Ferris Performing Organization Address City/State/Zipcode Phone Number [facility] DEPARTMENT OF [address] [place] [address] PATHOLOGY AND GENOMIC MEDICINE [address] * Surgical pathology request (02/25/2018 9:10 AM POLITICAL SCIENCE CHAIR) [facility] DEPARTMENT OF PATHOLOGY AND GENOMIC MEDICINE Surgical pathology report See link below for PDF Lab [facility] DEPARTMENT OF Report PATHOLOGY AND GENOMIC MEDICINE Result status This is Final Report for [facility] DEPARTMENT OF [id number] PATHOLOGY AND GENOMIC MEDICINE Performing Organization Address City/State/Zipcode Phone Number [facility] [place] [address] PATHOLOGY AND GENOMIC MEDICINE * Iron level (02/21/2018 4:03 PM POLITICAL SCIENCE CHAIR) Iron level 82 37 - 145 ug/dL [facility] Specimen Plasma specimen Performing Organization Address City/[facility] Phone Number [facility] [place] [address] PATHOLOGY AND GENOMIC MEDICINE [address] * Spirometry (02/21/2018 2:13 PM POLITICAL SCIENCE CHAIR) FEV1 Pre 0.82 1.36 - 2.57 L [facility] FEV1/FVC % Pre 47.28 67.72 - 89.08 % [facility] FVC Pre 1.74 1.81 - 3.23 L [facility] PEF Pre 1.24 3.24 - 7.25 [...] [facility] Narrative Performed At Performing Organization Address City/[facility] Phone Number [facility] [address] [place] [address] * ECG Pre/Post Op (02/21/2018 1:33 PM POLITICAL SCIENCE CHAIR) Ventricular rate 72 [facility] Atrial rate 72 [facility] CO interval 158 [facility] QRSD interval 88 [facility] QT interval 444 [facility] QTC interval 486 [facility] P axis 1 19 [facility] QRS axis 1 67 [facility] T wave axis 0 [facility] EKG impression Normal sinus rhythm-Moderate [facility] voltage criteria for LVH, may be normal variant-Nonspecific T wave abnormality-Prolonged QT-Abnormal ECG- Narrative Performed At Performing Organization Address City/[facility] Phone Number [facility] [address] [place] [address] * Prepare RBC (02/21/2018 1:30 PM POLITICAL SCIENCE CHAIR) Product name Red Blood Cells -1, Leukored [facility] Unit number [id number] [facility] Product code [id number] [facility] Dispense status Transfused [facility] Blood expiration date [facility] Blood type code 7300 [facility] Blood type B POSITIVE [facility] Product name Red Blood Cells -1, Leukored [facility] Unit number [id number] [facility] Product code [id number] [facility] Dispense status Transfused [facility] Blood expiration date [facility] Blood type code 7300 [facility] Blood type B POSITIVE [facility] Product name Red Cells AS1 Leukored Irrad [facility] Unit number [id number] [facility] Product code [id number] [facility] Dispense status Returned to BB not transfused [facility] Blood expiration date [facility] Blood type code 7300 [facility] Blood type B POSITIVE [facility] Product name Red Cells AS1 Leukored Irrad [facility] Unit number [id number] [facility] Product code [id number] [facility] Dispense status Returned to BB not transfused [facility] Blood expiration date [facility] Blood type code 7300 [facility] Blood type B POSITIVE [facility] Performing Organization Address City/State/[facility] Phone Number [facility] [place] [address] PATHOLOGY AND GENOMIC MEDICINE [address] * Hemoglobin A1c (02/21/2018 1:29 PM POLITICAL SCIENCE CHAIR) Hemoglobin A1C 5.3 4.0 - 5.6 % [facility] Comment: HOSPITAL HbA1c cutoffs for diagnosing diabetes: 4.0% - 5.6%=normal 5.7% - 6.4%=increased risk for diabetes (prediabetes) >=6.5%=diabetes Goals for glycemic control (ADA 2016) < 7.0%Target for non adults with diabetes. More or less stringent targets may be appropriate for individual patients. <7.5% Target for Children and adolescents with type 1 diabetes. Specimen Blood Performing Organization Address City/[facility] Phone Number [facility] [place] [address] PATHOLOGY AND GENOMIC MEDICINE [address] * Total iron binding capacity (02/21/2018 1:24 PM POLITICAL SCIENCE CHAIR) Iron level 83 37 - 145 ug/dL [facility] Iron binding capacity 302 200 - 400 ug/dL [facility] % Saturation 27.5 15.0 - 38.0 % [facility] Specimen Plasma specimen Performing Organization Address City/State/Zipcode Phone Number [facility] DEPARTMENT [address] [address] PATHOLOGY AND GENOMIC MEDICINE [address] * Folate level (02/21/2018 1:24 PM POLITICAL SCIENCE CHAIR) Folate 12.3 4.8 - 24.2 ng/mL [facility] Specimen Serum Performing Organization Address City/State/Zipcode Phone Number [facility] [place] [address] PATHOLOGY AND GENOMIC MEDICINE [address] * Ferritin level (02/21/2018 1:24 PM POLITICAL SCIENCE CHAIR) Ferritin level 152 (H) 13 - 150 ng/mL [facility] Specimen Plasma specimen Performing Organization Address City/[facility] Phone Number [facility] [place] [address] PATHOLOGY AND GENOMIC MEDICINE [address] * Vitamin B12 level (02/21/2018 1:24 PM POLITICAL SCIENCE CHAIR) Vitamin B12 707 211 - 946 pg/mL [facility] Comment: HOSPITAL Significant overlap exists between normal and deficiency states. However, most patients with deficiencies will have Serum B12 <200 pg/mL. Specimen Serum Performing Organization Address [facility]/Zipcode Phone Number [facility] [place] [address] PATHOLOGY [place] [address] HOSPITAL after 05/07/2017 Insurance Payer Benefit Subscriber ID Type Phone Address Plan / Group [employer] x[employer]xxx [facility] (Work) Advance Directives Patient has advance care planning documents on file. For more information, narendra gipson contact: [place] [phone]
--- NOTE | 2018-05-08 11:20 | NUR ---
RECEIVED REPORT FROM [facility] TO ASSUME PTS CARE. PT AMBULATORY WITH STEADY GAIT. AA&OX3. PT GOWNED AND PLACED ON THE MONITOR. FAMILY AT BEDSIDE
[2018-05-08 11:59] LABS: BILIRUBIN,URINE NEGATIVE (NEGATIVE); CLARITY,URINE CLEAR (CLEAR); COLOR,URINE STRAW (YELLOW); KETONES,URINE NEGATIVE (NEGATIVE); LEUKOCYTE ESTERASE ,URINE NEGATIVE (NEGATIVE); NITRITE,URINE NEGATIVE (NEGATIVE); PROTEIN,URINE DIPSTICK NEGATIVE (NEGATIVE); URINE UROBILINOGEN 0.2 mg/dL (0.2 - 1)
[2018-05-08 12:16] LABS: BACTERIA,URINE FEW /HPF; EPITHELIAL CELLS,URINE FEW /LPF
[2018-05-08 12:32] LABS: BASOPHILS % 0.4 % (0.0-1.0); EOSINOPHILS % 0.4 % (0.0-6.0); HEMATOCRIT 38.7 % (34.2-44.1); HEMOGLOBIN 11.8 g/dL (12.0-16.0); LYMPHOCYTES # (AUTO) 1.4 (1.0-3.2); LYMPHOCYTES % 12.7 % (18.0-39.1); MEAN CORPUSCULAR HEMOGLOBIN 25.4 pg (28-32); MEAN CORPUSCULAR HGB CONC 30.5 g/dL (31-35); MEAN CORPUSCULAR VOLUME 83.4 fL (81-99); MONOCYTES # (AUTO) 0.6 (0.2-0.8); MONOCYTES % 5.5 % (4.4-11.3); NEUTROPHILS # (AUTO) 8.8 (2.1-6.9); NEUTROPHILS % 80.7 % (38.7-80.0); PLATELET COUNT 401 x10e3/uL (140-360); RED BLOOD COUNT 4.64 x10e6/uL (3.6-5.1); RED CELL DISTRIBUTION WIDTH 15.9 % (11.7-14.4)
--- NOTE | 2018-05-08 12:34 | NUR ---
PT AMBULATES TO THE RESTROOM FREQUENTLY. SHE SAID THAT SHE TOOK LASIX THIS MORNING
--- NOTE | 2018-05-08 12:50 | NUR ---
HAD TO REDRAW ALL OF PTS LABS BECAUSE LAB CALLED AND SAID ALL TUBES WERE HEMOLYZED
[2018-05-08 12:52] LABS: ALANINE AMINOTRANSFERASE 15 IU/L (0-55); ALBUMIN 3.6 g/dL (3.5-5.0); ALBUMIN/GLOBULIN RATIO 0.8 (0.8-2.0); ALKALINE PHOSPHATASE 101 IU/L (40-150); AMYLASE 50 U/L (25-125); ANION GAP 19.4 mmol/L (8-16); BLOOD UREA NITROGEN 11 mg/dL (7-26); BUN/CREATININE RATIO 10 (6-25); CALCIUM 9.9 mg/dL (8.4-10.2); CARBON DIOXIDE 23 mmol/L (22-29); CHLORIDE 98 mmol/L (98-107); CREATINE KINASE 76 IU/L (29-168); CREATININE, SERUM 1.07 mg/dL (0.57-1.11); EST GLOMERULAR FILTRATION RATE > 60 ML/MIN (60-); GLUCOSE 96 mg/dL (74-118); LIPASE 8 U/L (8-78); POTASSIUM 4.4 mmol/L (3.5-5.1); SODIUM 136 mmol/L (136-145)
--- NOTE | 2018-05-08 13:10 | Diagnostic Imaging Report ---
EXAM: CHEST SINGLE (PORTABLE), AP Portable DATE: 05/08/2018Time stamp on exam: 11:58 AM INDICATION: Shortness of breath COMPARISON: 02/01/2018 FINDINGS: LINES/TUBES: Surgical clips at the thoracic inlet and sternotomy wire sutures are present. LUNGS: No consolidations or edema. PLEURA: Small bilateral pleural effusions; right side greater than left. HEART AND MEDIASTINUM: Heart is enlarged. BONES AND SOFT TISSUES: No acute findings. IMPRESSION: Cardiomegaly with small bilateral pleural effusions. Signed by: Dr. Alvarez Cedillo DO on 05/08/2018 1:06 PM
--- NOTE | 2018-05-08 13:39 | NUR ---
SECOND SET OF LABS DRAWN WERE ALSO HEMOLYZED. 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
[2018-05-08 14:40] LABS: INR 0.99
[2018-05-08 14:41] LABS: PARTIAL THROMBOPLASTIN TIME 39.6 seconds (23.8-35.5)
[2018-05-08] MEDS ORDERED: VITAMIN D32000 UNI1 PO (15:44)
[2018-05-08] MEDS ORDERED: CRESTOR10 MG PO (15:44)
[2018-05-08] MEDS ORDERED: SPIRONOLACTONE25 MG PO (15:44)
[2018-05-08] MEDS ORDERED: FUROSEMIDE INJ 10 MG/ML 4 ML VIAL IV ONE (16:00)
--- NOTE | 2018-05-08 17:07 | Diagnostic Imaging Report ---
EXAMINATION: CT of the chest with contrast, PE protocol. TECHNIQUE: Spiral CT images of the chest were performed from the lung apices through the level of the adrenal glands after the IV administration of 100 cc of Isovue-370. Thin section reconstructions were obtained with special concentration on the pulmonary arteries. Parameter modification was utilized to provide the lowest dose to the patient. DLP: 507.77 mGy-cm COMPARISON: 03/10/2018 CLINICAL HISTORY:Dyspnea with shortness of breath DISCUSSION: Lungs: No filling defects are identified in the main, right or left pulmonary arteries to their segmental and subsegmental levels, to suggest pulmonary embolism. Mild pulmonary vascular congestion. Airways: <The major airways are clear.> Pleura: Bilateral small pleural effusions; right side greater than left. Heart and mediastinum: The heart is enlarged. Clips in the region of the thyroid gland from previous thyroidectomy. Abdomen: Large upper pole right renal cyst. Bones and soft tissues: Degenerative changes of the spine. There are sternotomy wire sutures. IMPRESSION: 1. No evidence of pulmonary emboli. 2. Mild pulmonary vascular congestion, cardiomegaly and bilateral pleural effusions. Signed by: Dr. Alvarez Cedillo DO on 05/08/2018 5:03 PM
--- NOTE | 2018-05-08 17:25 | NUR ---
REPEAT CE WERE DRAWN AND SENT TO LAB
[2018-05-08 17:45] LABS: CREATINE KINASE MB 1.1 ng/mL (0-5.0)
[2018-05-08 18:30] VITALS: BP 129/69
[2018-05-08] MEDS ORDERED: IOPAMIDOL 370 MG/ML 200 ML INFUS..BTL INJ ONE (22:02)
[2018-05-08] MEDS ORDERED: SODIUM CHLORIDE 0.9% 50ML 50 ML ONE (22:02)
== END 2018-05-08 18:30 | disposition home or self-care (01) ==
LOC: ER 10:42
DX: R07.9 Chest pain, unspecified (principal); R00.0 Tachycardia, unspecified; J90 Pleural effusion, not elsewhere classified; I50.9 Heart failure, unspecified; R94.31 Abnormal electrocardiogram [ECG] [EKG]
CPT/HCPCS: 36415; 71045; 71260; 80053; 81001; 82150; 82550; 82553; 83690; 83880; 84484; 85025; 85379; 85610; 85730; 93005; 99284; J1940; Q9967

== ENCOUNTER 2018-08-26 09:57 | Emergency (ER) | payer MEDICARE, OTHER ==
[~2018-08-26] VITALS: Ht 162.6 cm; Wt 91.6 kg
[~2018-08-26 09:57] MED LIST changes: +CRESTOR10 MG PO; +SPIRONOLACTONE25 MG PO; +VITAMIN D32000 UNI1 PO
--- OUTSIDE RECORDS SUMMARY | 2018-08-26 10:01 | XMS REPORT | Clinical Summary ---
Author Author [facility] Organization [facility] Address Unknown Phone Unavailable Care Team Providers Care [employer] Supervisor Name Role Phone Asked, No Pcp PCP [...] Description Date Type Specialty Bin Dc MD 05/23/2018 Hospital Radiology Encounter Bin Dc MD Dissection [...] MM VALVE) 02/25/2018 Surgery Cardiothoracic Surgery Clair Fisher, JULISA 02/25/2018 Anesthesia Cardiothoracic Surgery Event Bin Dc MD Non-rheumatic mitral valve stenosis (Primary Dx); Mitral stenosis 02/25/2018 Hospital Cardiology - Encounter 03/05/2018 Ami Avila, ALBARO 02/22/2018 Documentation Cardiovascular Bin Dc MD 02/21/2018 Hospital Radiology Encounter Clair Fisher, TRACTOR OPERATOR Bin Dc MD 02/21/2018 Hospital Pulmonology Encounter Bin Dc MD Pre-op testing (Primary Dx); Preop cardiovascular exam; Preop pulmonary/respiratory exam; Preop examination 02/21/2018 Pre-Admit Pre-Admission Testing Testing Appointment Bin Dc MD Preop cardiovascular exam (Primary Dx) 02/21/2018 Transcribe Access Orders after 08/25/2017 Social History Date Tobacco Use Types Packs/Day [...] Taken Vital Sign Reading 03/13/2018 11:08 AM SILVICULTURE PROFESSOR Blood Pressure 128/64 03/13/2018 11:08 AM SILVICULTURE PROFESSOR Pulse 84 03/13/2018 11:08 AM SILVICULTURE PROFESSOR Temperature 36.3 C (97.3 F) 03/13/2018 11:08 AM SILVICULTURE PROFESSOR Respiratory Rate 18 03/13/2018 11:08 AM SILVICULTURE PROFESSOR Oxygen Saturation 96% - Inhaled Oxygen - Concentration 05/23/2018 10:28 AM SILVICULTURE PROFESSOR Weight 80.3 kg (177 lb) 05/23/2018 10:28 AM SILVICULTURE PROFESSOR Height 162.6 cm (5' 4") 05/23/2018 10:28 AM SILVICULTURE PROFESSOR Body Mass Index 30.38 Plan of Treatment Health Maintenance Due Date Last Done Comments BREAST CANCER SCREENING 2002 COLON CANCER SCREENING 2002 SHINGLES VACCINES (#1) 2002 65+ PNEUMOCOCCAL VACCINE 2017 (1 of 2 - PCV13) INFLUENZA VACCINE 10/17/2018 03/19/2016 Implants Device Identifier Shelf Expiration Date Model / Serial / Lot Implanted Type Area Manufactur er 6500F / / Lead Pace Jimy Mycrdl Unipol Tmpry Cardiac N/A: N/A [employer] Streamline - [id number] Pacing [place] - Implanted: 02/25/2018 (Quantity not Leads or CARDIAC on file) Electrodes SRGRY or Accessorie s 6500F / / Lead Pace Jimy Mycrdl Unipol Tmpry Cardiac N/A: N/A [employer] Streamline - [id number] Pacing [place] - Implanted: 02/25/2018 (Quantity not Leads or CARDIAC on file) Electrodes SRGRY or Accessorie s 6500F / / Lead Pace Jimy Mycrdl Unipol Tmpry Cardiac N/A: N/A [employer] Streamline - [id number] Pacing [place] - Implanted: 02/25/2018 (Quantity not Leads or CARDIAC on file) Electrodes SRGRY or Accessorie s 04/17/2021 [id number] [id number] 00 / [id number] / [id number] Valve Mitral Stntd Tiss Annls W/ Cardiovasc N/A: N/A [facility] Linx Ac Tech 31mm Epic - [id number] ular STRUCTURAL Implanted: 02/25/2018 (Quantity not Implants HEART on file) [id number] / / Clip Ligtng Weck Hemoclip Plus W/ Medical N/A: N/A TELEFLEX Tape Ti Lg - [id number] Clips for MEDICAL Implanted: 02/25/2018 (Quantity not Internal on file) Use 08 [id number] / / Implant Strnl Zipfix W/ Ndl Peek - Surgical N/A: N/A SYNTHES [id number] Implants; MAXIOFACIA Implanted: 02/25/2018 (Quantity not Expanders; L IMPLANT on file) Extenders; Surgical Wires 11/13/2022 [id number] / / [id number] [place] Perph Vasclr Ptfe 1.2x10cm Vascular N/A: N/A BARD 1.65mm - [id number] Graft PERIPHERAL Implanted: 02/25/2018 (Quantity not VASCULAR on file) 11/13/2022 [id number] / / [id number] [place] Perph Vasclr Ptfe 1.2x10cm Vascular N/A: N/A BARD 1.65mm - [id number] Graft PERIPHERAL Implanted: 02/25/2018 (Quantity not VASCULAR on file) Procedures Comments Procedure Name Priority Date/Time Associated Diagnosis CT ANGIOGRAM CHEST W WO Routine 05/23/2018 Dissection of aorta, CONTRAST 12:13 PM SILVICULTURE PROFESSOR unspecified portion of aorta (HCC) ESTIMATED GFR Routine 05/23/2018 10:40 AM SILVICULTURE PROFESSOR POC CREATININE Routine 05/23/2018 10:40 AM SILVICULTURE PROFESSOR ESTIMATED GFR Routine 04/16/2018 12:24 PM SILVICULTURE PROFESSOR POC CREATININE Routine 04/16/2018 12:24 PM SILVICULTURE PROFESSOR ECG 12-LEAD Routine 03/13/2018 7:53 AM SILVICULTURE PROFESSOR CBC HEMOGRAM Routine 03/13/2018 5:30 AM SILVICULTURE PROFESSOR ESTIMATED GFR Routine 03/13/2018 12:00 AM SILVICULTURE PROFESSOR PHOSPHORUS LEVEL Routine 03/13/2018 12:00 AM SILVICULTURE PROFESSOR IONIZED CALCIUM Routine 03/13/2018 12:00 AM SILVICULTURE PROFESSOR MAGNESIUM LEVEL Routine 03/13/2018 12:00 AM SILVICULTURE PROFESSOR BASIC METABOLIC PANEL Routine 03/13/2018 12:00 AM SILVICULTURE PROFESSOR POC GLUCOSE Routine 03/12/2018 12:05 PM SILVICULTURE PROFESSOR POC GLUCOSE Routine 03/12/2018 7:37 AM SILVICULTURE PROFESSOR XR CHEST 1 VW PORTABLE Routine 03/12/2018 6:04 AM SILVICULTURE PROFESSOR ECG 12-LEAD Routine 03/12/2018 5:01 AM SILVICULTURE PROFESSOR POC GLUCOSE Routine 03/12/2018 4:13 AM SILVICULTURE PROFESSOR ESTIMATED GFR Routine 03/12/2018 1:49 AM SILVICULTURE PROFESSOR PHOSPHORUS LEVEL Routine 03/12/2018 1:49 AM SILVICULTURE PROFESSOR MAGNESIUM LEVEL Routine 03/12/2018 1:49 AM SILVICULTURE PROFESSOR IONIZED CALCIUM Routine 03/12/2018 1:49 AM SILVICULTURE PROFESSOR BASIC METABOLIC PANEL Routine 03/12/2018 1:49 AM SILVICULTURE PROFESSOR PROTHROMBIN TIME WITH INR Routine 03/12/2018 1:40 AM SILVICULTURE PROFESSOR PARTIAL THROMBOPLASTIN Routine 03/12/2018 TIME (PTT) 1:40 AM SILVICULTURE PROFESSOR CBC HEMOGRAM Routine 03/12/2018 1:40 AM SILVICULTURE PROFESSOR POC GLUCOSE Routine 03/12/2018 12:13 AM SILVICULTURE PROFESSOR POC GLUCOSE Routine 03/11/2018 7:[address] ANGIOGRAM CHEST W WO STAT 03/11/2018 CONTRAST 7:01 PM SILVICULTURE PROFESSOR ESTIMATED GFR Routine 03/11/2018 4:28 PM SILVICULTURE PROFESSOR CREATININE LEVEL Routine 03/11/2018 4:28 PM SILVICULTURE PROFESSOR ECHOCARDIOGRAM 2D STAT 03/11/2018 COMPLETE W MMODE SPECTRAL 3:59 PM SILVICULTURE PROFESSOR COLOR DOPPLER ([id number]) POC GLUCOSE Routine 03/11/2018 3:50 PM SILVICULTURE PROFESSOR BLOOD CULTURE, AEROBIC & Routine 03/11/2018 ANAEROBIC 2:40 PM SILVICULTURE PROFESSOR TYPE AND SCREEN Routine 03/11/2018 2:39 PM SILVICULTURE PROFESSOR URINALYSIS SCREEN AND Routine 03/11/2018 MICROSCOPY, WITH REFLEX 2:00 PM SILVICULTURE PROFESSOR TO CULTURE URINE CULTURE Routine 03/11/2018 2:00 PM SILVICULTURE PROFESSOR ESTIMATED GFR Routine 03/11/2018 11:18 AM SILVICULTURE PROFESSOR CREATININE LEVEL Routine 03/11/2018 11:18 AM SILVICULTURE PROFESSOR XR CHEST 1 VW PORTABLE Routine 03/11/2018 8:30 AM SILVICULTURE PROFESSOR HC COMPLETE BLD COUNT Routine 03/11/2018 W/AUTO DIFF 6:48 AM SILVICULTURE PROFESSOR ESTIMATED GFR Routine 03/11/2018 4:00 AM SILVICULTURE PROFESSOR HEPATIC FUNCTION PANEL Routine 03/11/2018 4:00 AM SILVICULTURE PROFESSOR BASIC METABOLIC PANEL Routine 03/11/2018 4:00 AM SILVICULTURE PROFESSOR HC COMPLETE BLD COUNT Routine 03/05/2018 W/AUTO DIFF 5:24 AM SILVICULTURE PROFESSOR ESTIMATED GFR Routine 03/05/2018 4:00 AM SILVICULTURE PROFESSOR IONIZED CALCIUM Routine 03/05/2018 4:00 AM SILVICULTURE PROFESSOR PHOSPHORUS LEVEL Routine 03/05/2018 4:00 AM SILVICULTURE PROFESSOR MAGNESIUM LEVEL Routine 03/05/2018 4:00 AM SILVICULTURE PROFESSOR COMPREHENSIVE METABOLIC Routine 03/05/2018 PANEL 4:00 AM SILVICULTURE PROFESSOR HC COMPLETE BLD COUNT Routine 03/04/2018 W/AUTO DIFF 8:30 AM SILVICULTURE PROFESSOR ESTIMATED GFR Routine 03/04/2018 4:00 AM SILVICULTURE PROFESSOR IONIZED CALCIUM Routine 03/04/2018 4:00 AM SILVICULTURE PROFESSOR PHOSPHORUS LEVEL Routine 03/04/2018 4:00 AM SILVICULTURE PROFESSOR MAGNESIUM LEVEL Routine 03/04/2018 4:00 AM SILVICULTURE PROFESSOR COMPREHENSIVE METABOLIC Routine 03/04/2018 PANEL 4:00 AM SILVICULTURE PROFESSOR POC GLUCOSE Routine 03/03/2018 8:15 AM SILVICULTURE PROFESSOR POC GLUCOSE Routine 03/02/2018 8:25 PM SILVICULTURE PROFESSOR POC GLUCOSE Routine 03/02/2018 5:06 PM SILVICULTURE PROFESSOR POC GLUCOSE Routine 03/02/2018 11:53 AM SILVICULTURE PROFESSOR POC GLUCOSE Routine 03/02/2018 8:00 AM SILVICULTURE PROFESSOR CBC HEMOGRAM Routine 03/02/2018 5:45 AM SILVICULTURE PROFESSOR ESTIMATED GFR Routine 03/02/2018 5:40 AM SILVICULTURE PROFESSOR BASIC METABOLIC PANEL Routine 03/02/2018 5:40 AM SILVICULTURE PROFESSOR POC GLUCOSE Routine 03/01/2018 9:03 PM SILVICULTURE PROFESSOR ECHOCARDIOGRAM 2D Routine 03/01/2018 COMPLETE W MMODE SPECTRAL 3:57 PM SILVICULTURE PROFESSOR COLOR DOPPLER ([id number]) POC GLUCOSE Routine 03/01/2018 12:24 PM SILVICULTURE PROFESSOR ESTIMATED GFR Routine 03/01/2018 2:24 AM SILVICULTURE PROFESSOR BASIC METABOLIC PANEL Routine 03/01/2018 2:24 AM SILVICULTURE PROFESSOR HC COMPLETE BLD COUNT Routine 03/01/2018 W/AUTO DIFF 2:10 AM SILVICULTURE PROFESSOR POC GLUCOSE Routine 02/28/2018 9:42 PM SILVICULTURE PROFESSOR POC GLUCOSE Routine 02/28/2018 6:02 PM SILVICULTURE PROFESSOR POC GLUCOSE Routine 02/28/2018 12:56 PM SILVICULTURE PROFESSOR POC GLUCOSE Routine 02/28/2018 7:41 AM SILVICULTURE PROFESSOR HC COMPLETE BLD COUNT Routine 02/28/2018 W/AUTO DIFF 4:58 AM SILVICULTURE PROFESSOR ESTIMATED GFR Routine 02/28/2018 4:00 AM SILVICULTURE PROFESSOR MAGNESIUM LEVEL Routine 02/28/2018 4:00 AM SILVICULTURE PROFESSOR BASIC METABOLIC PANEL Routine 02/28/2018 4:00 AM SILVICULTURE PROFESSOR POC GLUCOSE Routine 02/27/2018 8:49 PM SILVICULTURE PROFESSOR POC GLUCOSE Routine 02/27/2018 5:49 PM SILVICULTURE PROFESSOR US RENAL Routine 02/27/2018 5:20 PM SILVICULTURE PROFESSOR SODIUM LEVEL, URINE, Routine 02/27/2018 TIMED 3:30 PM SILVICULTURE PROFESSOR CREATININE LEVEL, URINE, Routine 02/27/2018 TIMED 3:30 PM SILVICULTURE PROFESSOR UREA NITROGEN, URINE, Routine 02/27/2018 TIMED 3:30 PM SILVICULTURE PROFESSOR URINE EOSINOPHILS Routine 02/27/2018 3:30 PM SILVICULTURE PROFESSOR URINALYSIS SCREEN AND Routine 02/27/2018 MICROSCOPY, WITH REFLEX 3:30 PM SILVICULTURE PROFESSOR TO CULTURE GRAM STAIN Routine 02/27/2018 3:30 PM SILVICULTURE PROFESSOR URINE CULTURE Routine 02/27/2018 3:30 PM SILVICULTURE PROFESSOR XR CHEST 1 VW PORTABLE Routine 02/27/2018 3:00 PM SILVICULTURE PROFESSOR ESTIMATED GFR Routine 02/27/2018 1:02 PM SILVICULTURE PROFESSOR BASIC METABOLIC PANEL Routine 02/27/2018 1:02 PM SILVICULTURE PROFESSOR POC GLUCOSE Routine 02/27/2018 12:04 PM SILVICULTURE PROFESSOR ANESTHESIA TELLY Routine 02/27/2018 9:12 AM SILVICULTURE PROFESSOR Procedure Note - Cinthia Garcia CRNA - 02/27/2018 9:12 AM SILVICULTURE PROFESSOR Procedure Performed: TELLY Start Time: 02/25/2018 3:15 [...] Inferior: normal 16- Apical Septal: normal 17- [place]: normal Valves Aortic Valve: Annulus normal. Stenosis [...] 45-50% POC GLUCOSE Routine 02/27/2018 7:25 AM SILVICULTURE PROFESSOR CBC HEMOGRAM Routine 02/27/2018 5:00 AM SILVICULTURE PROFESSOR ESTIMATED GFR Routine 02/27/2018 12:00 AM SILVICULTURE PROFESSOR PHOSPHORUS LEVEL Routine 02/27/2018 12:00 AM SILVICULTURE PROFESSOR IONIZED CALCIUM Routine 02/27/2018 12:00 AM SILVICULTURE PROFESSOR MAGNESIUM LEVEL Routine 02/27/2018 12:00 AM SILVICULTURE PROFESSOR BASIC METABOLIC PANEL Routine 02/27/2018 12:00 AM SILVICULTURE PROFESSOR POC GLUCOSE Routine 02/26/2018 9:04 PM SILVICULTURE PROFESSOR POC GLUCOSE Routine 02/26/2018 4:13 PM SILVICULTURE PROFESSOR POC GLUCOSE Routine 02/26/2018 11:42 AM SILVICULTURE PROFESSOR POC GLUCOSE Routine 02/26/2018 10:11 AM SILVICULTURE PROFESSOR XR CHEST 1 VW PORTABLE STAT 02/26/2018 10:10 AM SILVICULTURE PROFESSOR LINE/DRAIN REMOVAL Routine 02/26/2018 Non-rheumatic mitral 9:48 AM SILVICULTURE PROFESSOR valve stenosis POC GLUCOSE Routine 02/26/2018 8:00 AM SILVICULTURE PROFESSOR POC GLUCOSE Routine 02/26/2018 6:30 AM SILVICULTURE PROFESSOR POC GLUCOSE Routine 02/26/2018 5:09 AM SILVICULTURE PROFESSOR ECG 12-LEAD Routine 02/26/2018 4:55 AM SILVICULTURE PROFESSOR POC GLUCOSE Routine 02/26/2018 4:02 AM SILVICULTURE PROFESSOR POC GLUCOSE Routine 02/26/2018 3:03 AM SILVICULTURE PROFESSOR MAGNESIUM LEVEL Routine 02/26/2018 2:30 AM SILVICULTURE PROFESSOR ESTIMATED GFR Routine 02/26/2018 2:30 AM SILVICULTURE PROFESSOR HC COMPLETE BLD COUNT Routine 02/26/2018 W/AUTO DIFF 2:30 AM SILVICULTURE PROFESSOR BASIC METABOLIC PANEL Routine 02/26/2018 2:30 AM SILVICULTURE PROFESSOR POC GLUCOSE Routine 02/26/2018 1:48 AM SILVICULTURE PROFESSOR POC GLUCOSE Routine 02/26/2018 1:01 AM SILVICULTURE PROFESSOR POC GLUCOSE Routine 02/25/2018 11:44 PM SILVICULTURE PROFESSOR POC GLUCOSE Routine 02/25/2018 11:07 PM SILVICULTURE PROFESSOR POC GLUCOSE Routine 02/25/2018 10:15 PM SILVICULTURE PROFESSOR ECG 12-LEAD Routine 02/25/2018 9:29 PM SILVICULTURE PROFESSOR XR CHEST 1 VW PORTABLE Routine 02/25/2018 9:21 PM SILVICULTURE PROFESSOR PARTIAL THROMBOPLASTIN Routine 02/25/2018 TIME (PTT) 8:53 PM SILVICULTURE PROFESSOR PROTHROMBIN TIME WITH INR Routine 02/25/2018 8:53 PM SILVICULTURE PROFESSOR HC COMPLETE BLD COUNT Routine 02/25/2018 W/AUTO DIFF 8:53 PM SILVICULTURE PROFESSOR POC GLUCOSE Routine 02/25/2018 8:52 PM SILVICULTURE PROFESSOR IONIZED CALCIUM, ARTERIAL Routine 02/25/2018 8:51 PM SILVICULTURE PROFESSOR ARTERIAL BLOOD GAS Routine 02/25/2018 8:51 PM SILVICULTURE PROFESSOR ESTIMATED GFR Routine 02/25/2018 8:44 PM SILVICULTURE PROFESSOR PHOSPHORUS LEVEL Routine 02/25/2018 8:44 PM SILVICULTURE PROFESSOR MAGNESIUM LEVEL Routine 02/25/2018 8:44 PM SILVICULTURE PROFESSOR BASIC METABOLIC PANEL Routine 02/25/2018 8:44 PM SILVICULTURE PROFESSOR TRANSFUSE RED BLOOD CELLS Routine 02/25/2018 8:13 PM SILVICULTURE PROFESSOR XR CHEST 2 VW STAT 02/25/2018 7:46 PM SILVICULTURE PROFESSOR PLATELET COUNT Routine 02/25/2018 7:10 PM SILVICULTURE PROFESSOR FIBRINOGEN Routine 02/25/2018 7:10 PM SILVICULTURE PROFESSOR PROTHROMBIN TIME WITH INR Routine 02/25/2018 7:10 PM SILVICULTURE PROFESSOR GLUCOSE LEVEL, SYRINGE Routine 02/25/2018 7:10 PM SILVICULTURE PROFESSOR IONIZED CALCIUM, ARTERIAL Routine 02/25/2018 7:10 PM SILVICULTURE PROFESSOR HEMOGLOBIN, SYRINGE Routine 02/25/2018 7:10 PM SILVICULTURE PROFESSOR POTASSIUM, SYRINGE Routine 02/25/2018 7:10 PM SILVICULTURE PROFESSOR ARTERIAL BLOOD GAS, Routine 02/25/2018 CORRECTED 7:10 PM SILVICULTURE PROFESSOR SODIUM LEVEL, SYRINGE Routine 02/25/2018 7:10 PM SILVICULTURE PROFESSOR ACTIVATED CLOTTING TIME Routine 02/25/2018 6:36 PM SILVICULTURE PROFESSOR ACTIVATED CLOTTING TIME Routine 02/25/2018 5:47 PM SILVICULTURE PROFESSOR GLUCOSE LEVEL, SYRINGE STAT 02/25/2018 5:45 PM SILVICULTURE PROFESSOR IONIZED CALCIUM, ARTERIAL STAT 02/25/2018 5:45 PM SILVICULTURE PROFESSOR HEMOGLOBIN, SYRINGE STAT 02/25/2018 5:45 PM SILVICULTURE PROFESSOR SODIUM LEVEL, SYRINGE STAT 02/25/2018 5:45 PM SILVICULTURE PROFESSOR POTASSIUM, SYRINGE STAT 02/25/2018 5:45 PM SILVICULTURE PROFESSOR ARTERIAL BLOOD GAS, STAT 02/25/2018 CORRECTED 5:45 PM SILVICULTURE PROFESSOR ACTIVATED CLOTTING TIME Routine 02/25/2018 5:16 PM SILVICULTURE PROFESSOR GLUCOSE LEVEL, SYRINGE STAT 02/25/2018 5:03 PM SILVICULTURE PROFESSOR IONIZED CALCIUM, ARTERIAL STAT 02/25/2018 5:03 PM SILVICULTURE PROFESSOR HEMOGLOBIN, SYRINGE STAT 02/25/2018 5:03 PM SILVICULTURE PROFESSOR POTASSIUM, SYRINGE STAT 02/25/2018 5:03 PM SILVICULTURE PROFESSOR ARTERIAL BLOOD GAS, STAT 02/25/2018 CORRECTED 5:03 PM SILVICULTURE PROFESSOR SODIUM LEVEL, SYRINGE STAT 02/25/2018 5:03 PM SILVICULTURE PROFESSOR ACTIVATED CLOTTING TIME Routine 02/25/2018 4:59 PM SILVICULTURE PROFESSOR GLUCOSE LEVEL, SYRINGE STAT 02/25/2018 4:30 PM SILVICULTURE PROFESSOR IONIZED CALCIUM, ARTERIAL STAT 02/25/2018 4:30 PM SILVICULTURE PROFESSOR HEMOGLOBIN, SYRINGE STAT 02/25/2018 4:30 PM SILVICULTURE PROFESSOR POTASSIUM, SYRINGE STAT 02/25/2018 4:30 PM SILVICULTURE PROFESSOR SODIUM LEVEL, SYRINGE STAT 02/25/2018 4:30 PM SILVICULTURE PROFESSOR ARTERIAL BLOOD GAS, STAT 02/25/2018 CORRECTED 4:30 PM SILVICULTURE PROFESSOR ACTIVATED CLOTTING TIME Routine 02/25/2018 4:25 PM SILVICULTURE PROFESSOR TRANSFUSE RED BLOOD CELLS Routine 02/25/2018 4:22 PM SILVICULTURE PROFESSOR GLUCOSE LEVEL, SYRINGE STAT 02/25/2018 4:00 PM SILVICULTURE PROFESSOR IONIZED CALCIUM, ARTERIAL STAT 02/25/2018 4:00 PM SILVICULTURE PROFESSOR HEMOGLOBIN, SYRINGE STAT 02/25/2018 4:00 PM SILVICULTURE PROFESSOR SODIUM LEVEL, SYRINGE STAT 02/25/2018 4:00 PM SILVICULTURE PROFESSOR POTASSIUM, SYRINGE STAT 02/25/2018 4:00 PM SILVICULTURE PROFESSOR ARTERIAL BLOOD GAS, STAT 02/25/2018 CORRECTED 4:00 PM SILVICULTURE PROFESSOR ACTIVATED CLOTTING TIME Routine 02/25/2018 3:57 PM SILVICULTURE PROFESSOR ACTIVATED CLOTTING TIME Routine 02/25/2018 3:32 PM SILVICULTURE PROFESSOR AZ AN ELECTIVE Routine 02/25/2018 ENDOTRACHEAL AIRWAY 3:27 PM SILVICULTURE PROFESSOR Procedure Note - Evette Cruz - 02/25/2018 3:27 PM SILVICULTURE PROFESSOR Airway Date/Time: 02/25/2018 2:15 PM Performed by: [...] GLUCOSE LEVEL, SYRINGE STAT 02/25/2018 3:08 PM SILVICULTURE PROFESSOR IONIZED CALCIUM, ARTERIAL STAT 02/25/2018 3:08 PM SILVICULTURE PROFESSOR HEMOGLOBIN, SYRINGE STAT 02/25/2018 3:08 PM SILVICULTURE PROFESSOR POTASSIUM, SYRINGE STAT 02/25/2018 3:08 PM SILVICULTURE PROFESSOR ARTERIAL BLOOD GAS, STAT 02/25/2018 CORRECTED 3:08 PM SILVICULTURE PROFESSOR SODIUM LEVEL, SYRINGE STAT 02/25/2018 3:08 PM SILVICULTURE PROFESSOR PA CATHETER Routine 02/25/2018 3:07 PM SILVICULTURE PROFESSOR Procedure Note - Seema Deshpande MD - 02/25/2018 3:07 PM SILVICULTURE PROFESSOR PA catheter Performed by: Seema Deshpande MD Authorized by: Seema Deshpande MD Patient Location: OR Start Time: 02/25/2018 2:51 PM End Time: 02/25/2018 2:58 PM Staff: Robert chacon: Seema Deshpande MD Resident/[place] NERI/AA: Evette Cruz Performed by: Anesthesio logist Preprocedu [...] solutions labeled Procedure details: PA Catheter Type: VP GENETIC and oximetric PA Catheter Size: 9 PA Catheter Side: Right PA Catheter Site: Internal jugular PA Catheter placed: PA Catheter placed without difficulty Waveform: PA Catheter wave confirmed Post-proc edure: No arrhythmia : No arrhythmia s noted Patient tolerance: Patient tolerated the procedure well with no immediate complicati ons CENTRAL LINE Routine 02/25/2018 3:07 PM SILVICULTURE PROFESSOR Procedure Note - Seema Deshpande MD - 02/25/2018 3:07 PM SILVICULTURE PROFESSOR Central line Performed by: Seema Deshpande MD Authorized by: Seema Deshpande MD Patient Location: OR Start Time: 02/25/2018 2:40 PM End Time: 02/25/2018 2:47 PM Staff: Robert chacon: Seema Deshpande MD Resident/C HALLE/AA: Evette Cruz Performed by: Anesthesio logist Preprocedu re:patient identified , IV checked, site [...] ons CENTRAL LINE Routine 02/25/2018 3:06 PM SILVICULTURE PROFESSOR Procedure Note - Seema Deshpande MD - 02/25/2018 3:06 PM SILVICULTURE PROFESSOR Central line Performed by: Seema Deshpande MD [...] ons ARTERIAL LINE Routine 02/25/2018 3:05 PM SILVICULTURE PROFESSOR Procedure Note - Seema Deshpande MD - 02/25/2018 3:05 PM SILVICULTURE PROFESSOR Arterial line Performed by: Seema Deshpande MD Authorized by: Seema Deshpande MD Patient Location: OR Start Time: 02/25/2018 2:20 PM End Time: 02/25/2018 2:25 PM Staff: Moreo logist: Seema Deshpande MD Performed by: Robert chacon [...] ACTIVATED CLOTTING TIME Routine 02/25/2018 3:05 PM SILVICULTURE PROFESSOR AZ AN ELECTIVE Routine 02/25/2018 ENDOTRACHEAL AIRWAY 3:03 PM SILVICULTURE PROFESSOR Procedure Note - Seema Deshpande MD - 02/25/2018 3:03 PM SILVICULTURE PROFESSOR ANESTHESIA INTUBATION Date/Time: 02/25/2018 2:28 PM Performed [...] SURGICAL PATHOLOGY Routine 02/25/2018 REQUEST 9:10 AM SILVICULTURE PROFESSOR IRON LEVEL Routine 02/21/2018 Preop cardiovascular exam 4:03 PM SILVICULTURE PROFESSOR Pre-op testing XR CHEST 2 VW Routine 02/21/2018 Preop cardiovascular exam 3:18 PM SILVICULTURE PROFESSOR SPIROMETRY Routine 02/21/2018 Preop 2:13 PM SILVICULTURE PROFESSOR pulmonary/respiratory exam Preop examination ECG PRE/POST OP Routine 02/21/2018 Preop cardiovascular exam 1:33 PM SILVICULTURE PROFESSOR Pre-op testing PREPARE RBC Routine 02/21/2018 1:30 PM SILVICULTURE PROFESSOR TYPE AND SCREEN Routine 02/21/2018 Preop cardiovascular exam 1:30 PM SILVICULTURE PROFESSOR Pre-op testing URINE CULTURE Routine 02/21/2018 1:30 PM SILVICULTURE PROFESSOR HEMOGLOBIN A1C Routine 02/21/2018 Preop cardiovascular exam 1:29 PM SILVICULTURE PROFESSOR FERRITIN LEVEL Routine 02/21/2018 Preop cardiovascular exam 1:24 PM SILVICULTURE PROFESSOR Pre-op testing FOLATE LEVEL Routine 02/21/2018 Preop cardiovascular exam 1:24 PM SILVICULTURE PROFESSOR Pre-op testing TOTAL IRON BINDING Routine 02/21/2018 Preop cardiovascular exam CAPACITY 1:24 PM SILVICULTURE PROFESSOR Pre-op testing VITAMIN B12 LEVEL Routine 02/21/2018 Preop cardiovascular exam 1:24 PM SILVICULTURE PROFESSOR Pre-op testing URINALYSIS SCREEN AND Routine 02/21/2018 Preop cardiovascular exam MICROSCOPY, WITH REFLEX 1:22 PM SILVICULTURE PROFESSOR Pre-op testing TO CULTURE ESTIMATED GFR Routine 02/21/2018 1:16 PM SILVICULTURE PROFESSOR PROTHROMBIN TIME WITH INR Routine 02/21/2018 Preop cardiovascular exam 1:16 PM SILVICULTURE PROFESSOR Pre-op testing PARTIAL THROMBOPLASTIN Routine 02/21/2018 Preop cardiovascular exam TIME (PTT) 1:16 PM SILVICULTURE PROFESSOR Pre-op testing COMPREHENSIVE METABOLIC Routine 02/21/2018 Preop cardiovascular exam PANEL 1:16 PM SILVICULTURE PROFESSOR Pre-op testing HC COMPLETE BLD COUNT Routine 02/21/2018 Preop cardiovascular exam W/AUTO DIFF 1:16 PM SILVICULTURE PROFESSOR Pre-op testing after 08/25/2017 Results * CTA Chest W Wo Contrast (05/23/2018 12:13 PM SILVICULTURE PROFESSOR) Only the most recent of 2 results within the time period is included. Specimen Narrative Performed At EXAM: [facility] CT ANGIOGRAM CHEST W WO CONTRAST INDICATION: I71.00 Dissection of unspecified site of aorta, I71.00 COMPARISON: CTA chest dated 03/11/2018. TECHNIQUE: After administration of iodinated contrast intravenously, axial CT images of the chest were obtained. Coronal and sagittal, and oblique maximal intensity projection images were obtained. 3-D volumetric reconstruction of the arterial system was obtained. Iterative reconstruction and/or automated exposure control techniques were employed to reduce radiation dose. FINDINGS: Limited neck: Post interval changes of total thyroidectomy. Multiple surgical clips along the thyroid bed. Few subcentimeter short axis cervical lymph nodes bilaterally, left greater than right, unchanged and below size criterion for adenopathy. Chest: Postsurgical changes of mitral annuloplasty. Sternal sutures. Scarring within the anterior thymic fat. Surgical changes adjacent to the ascending aorta as noted above. Esophagus is normal. Moderate cardiomegaly with four-chamber dilatation. Mitral annuloplasty. Minimal calcification aortic valve. Calcified atherosclerotic plaque left main and left anterior descending coronary arteries. Small, simple pericardial effusion. Aorta under the vascular subsection below. Main pulmonary artery diameter is 3.3 cm in maximal diameter, compatible with pulmonary arterial hypertension. Multiple subcentimeter short axis mediastinal lymph nodes which do not meet CT size criterion for adenopathy. No hilar, internal mammary, or bilateral axillary adenopathy. Major airways are normal. Previously noted moderate right and small left simple-appearing pleural effusions are gone. Previously noted mild bibasilar dependent atelectasis is gone. Moderate linear opacity within the lateral aspect of the left upper lobe and extending to the left minor fissure remains, discoid atelectasis versus scar/fibrosis. Trace biapical pleural thickening. 6 mm diameter subsolid nodule anterior aspect right upper lobe (series 3, slice 28), unchanged. 7 mm subsolid nodule lateral aspect right upper lobe (series 3, slice 33), obscured by groundglass on prior exam. Limited abdomen: Visualized portions of the liver, gallbladder, pancreas, spleen, bilateral adrenals, and left kidney upper pole are normal. 3.7 cm maximal diameter simple cyst anterior aspect right kidney upper mid pole junction (series 5, slice 107). Visualized portions of the stomach, small bowel, and large bowel are normal. Vascular: Persistent rounded hyperdense foci along the anterior margin of the aortic arch at the takeoff of the right brachiocephalic artery and along the anterior and lateral margin of the ascending thoracic aorta (series 2, slice 33 and slice 43). These foci appear similar density to the aorta on the arterial phase; however, they are significantly hyperdense relative to the aorta and adjacent vascular structures on the delayed phase. Additionally, internal density of these foci remains approximately 280 Hounsfield units across both phases while the density of the adjacent vascular structures changes (as expected). Long-term stability, stability of density across phases, and juxta arterial location favors hyperdense surgical material over penetrating atherosclerotic ulcers and focal dissection, respectively. If indicated, this could be confirmed with a noncontrast CT the chest. Ascending thoracic aorta: Aortic root: 3.0 cm maximal coronal diameter. Sinotubular junction: 1.8 cm in maximal coronal diameter, which is normal. Mid ascending thoracic aorta: 2.7 cm maximal coronal diameter, which is normal. Aortic root: Minimal calcified atherosclerotic plaque within the aortic arch. Descending thoracic aorta: Normal course and caliber. Right brachycephalic artery: Normal course and caliber. Visualized carotid arteries: Normal course and caliber. Visualized subclavian arteries: Moderate mixed plaque takeoff left subclavian artery with moderate associated luminal narrowing (series 2, slice 24). Right subclavian arteries normal course and caliber. Limited descending thoracic aorta: Normal course and caliber. Celiac axis: Mild mixed plaque takeoff celiac axis. Otherwise normal course and caliber. Superior mesenteric artery: Normal course and caliber. Bilateral renal arteries: Normal course and caliber. Musculoskeletal: Soft tissue density scar midline chest subcutaneous fat. Sternal sutures. 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 Union of the inferior portion of the sternum. Minimal arthrosis bilateral acromioclavicular joints. Large osteophytes inferior to the left acromion which markedly narrows the left acromiohumeral interval. Mild degenerative changes of the visualized cervical and thoracic spine. No suspicious osseous or soft tissue structures. IMPRESSION: 1. Persistent rounded hyperdense foci along the anterior margin of the aortic arch at the takeoff of the right brachiocephalic artery and lentiform shaped hyperdense focus along the anterior and lateral margin of the ascending thoracic aorta, which remain unchanged in density across phases and are unchanged in appearance since prior exam, favoring surgical material placed after prior mitral annuloplasty over penetrating atherosclerotic ulcer and focal dissection, respectively. If indicated, this could be confirmed with a noncontrast CT of the chest. 2. 6 mm diameter subsolid nodule anterior aspect right upper lobe unchanged. 7 mm subsolid nodule lateral aspect right upper lobe, obscured by groundglass on prior exam. These are most likely postinfectious/inflammatory. Nevertheless, per Fleischner criteria, consider follow-up with noncontrast CT the chest in 6-12 months time. 3. Moderate cardiomegaly. Mitral annuloplasty. 4. Pulmonary arterial hypertension. 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 TECHNIQUE: After administration of iodinated contrast intravenously, axial CT images of the chest were obtained. Coronal and sagittal, and oblique maximal intensity projection images were obtained. 3-D volumetric reconstruction of the arterial system was obtained. Iterative reconstruction and/or automated exposure control techniques were employed to reduce radiation dose. FINDINGS: Limited neck: Post interval changes of total thyroidectomy. Multiple surgical clips along the thyroid bed. Few subcentimeter short axis cervical lymph nodes bilaterally, left greater than right, unchanged and below size criterion for adenopathy. Chest: Postsurgical changes of mitral annuloplasty. Sternal sutures. Scarring within the anterior thymic fat. Surgical changes adjacent to the ascending aorta as noted above. Esophagus is normal. Moderate cardiomegaly with four-chamber dilatation. Mitral annuloplasty. Minimal calcification aortic valve. Calcified atherosclerotic plaque left main and left anterior descending coronary arteries. Small, simple pericardial effusion. Aorta under the vascular subsection below. Main pulmonary artery diameter is 3.3 cm in maximal diameter, compatible with pulmonary arterial hypertension. Multiple subcentimeter short axis mediastinal lymph nodes which do not meet CT size criterion for adenopathy. No hilar, internal mammary, or bilateral axillary adenopathy. Major airways are normal. Previously noted moderate right and small left simple-appearing pleural effusions are gone. Previously noted mild bibasilar dependent atelectasis is gone. Moderate linear opacity within the lateral aspect of the left upper lobe and extending to the left minor fissure remains, discoid atelectasis versus scar/fibrosis. Trace biapical pleural thickening. 6 mm diameter subsolid nodule anterior aspect right upper lobe (series 3, slice 28), unchanged. 7 mm subsolid nodule lateral aspect right upper lobe (series 3, slice 33), obscured by groundglass on prior exam. Limited abdomen: Visualized portions of the liver, gallbladder, pancreas, spleen, bilateral adrenals, and left kidney upper pole are normal. 3.7 cm maximal diameter simple cyst anterior aspect right kidney upper mid pole junction (series 5, slice 107). Visualized portions of the stomach, small bowel, and large bowel are normal. Vascular: Persistent rounded hyperdense foci along the anterior margin of the aortic arch at the takeoff of the right brachiocephalic artery and along the anterior and lateral margin of the ascending thoracic aorta (series 2, slice 33 and slice 43). These foci appear similar density to the aorta on the arterial phase; however, they are significantly hyperdense relative to the aorta and adjacent vascular structures on the delayed phase. Additionally, internal density of these foci remains approximately 280 Hounsfield units across both phases while the density of the adjacent vascular structures changes (as expected). Long-term stability, stability of density across phases, and juxta arterial location favors hyperdense surgical material over penetrating atherosclerotic ulcers and focal dissection, respectively. If indicated, this could be confirmed with a noncontrast CT the chest. Ascending thoracic aorta: Aortic root: 3.0 cm maximal coronal diameter. Sinotubular junction: 1.8 cm in maximal coronal diameter, which is normal. Mid ascending thoracic aorta: 2.7 cm maximal coronal diameter, which is normal. Aortic root: Minimal calcified atherosclerotic plaque within the aortic arch. Descending thoracic aorta: Normal course and caliber. Right brachycephalic artery: Normal course and caliber. Visualized carotid arteries: Normal course and caliber. Visualized subclavian arteries: Moderate mixed plaque takeoff left subclavian artery with moderate associated luminal narrowing (series 2, slice 24). Right subclavian arteries normal course and caliber. Limited descending thoracic aorta: Normal course and caliber. Celiac axis: Mild mixed plaque takeoff celiac axis. Otherwise normal course and caliber. Superior mesenteric artery: Normal course and caliber. Bilateral renal arteries: Normal course and caliber. Musculoskeletal: Soft tissue density scar midline chest subcutaneous fat. Sternal sutures. 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 Union of the inferior portion of the sternum. Minimal arthrosis bilateral acromioclavicular joints. Large osteophytes inferior to the left acromion which markedly narrows the left acromiohumeral interval. Mild degenerative changes of the visualized cervical and thoracic spine. No suspicious osseous or soft tissue structures. IMPRESSION: 1. Persistent rounded hyperdense foci along the anterior margin of the aortic arch at the takeoff of the right brachiocephalic artery and lentiform shaped hyperdense focus along the anterior and lateral margin of the ascending thoracic aorta, which remain unchanged in density across phases and are unchanged in appearance since prior exam, favoring surgical material placed after prior mitral annuloplasty over penetrating atherosclerotic ulcer and focal dissection, respectively. If indicated, this could be confirmed with a noncontrast CT of the chest. 2. 6 mm diameter subsolid nodule anterior aspect right upper lobe unchanged. 7 mm subsolid nodule lateral aspect right upper lobe, obscured by groundglass on prior exam. These are most likely postinfectious/inflammatory. Nevertheless, per Fleischner criteria, consider follow-up with noncontrast CT the chest in 6-12 months time. 3. Moderate cardiomegaly. Mitral annuloplasty. 4. Pulmonary arterial hypertension. [facility]-[id number] Performing Organization Address City/State/Zipcode Phone Number [facility] [address] [place] [address] * Estimated GFR (05/23/2018 10:40 AM SILVICULTURE PROFESSOR) Only the most recent of 17 results within the time period is included. Estimated GFR 45 (A) mL/min/1.73 m2 [place] Comment: VOODOO [facility] rpretation G1 >=90 Normal or high G2 60-89Mildly decreased S4h43-27 Mildly to moderately decreased G1h45-00 Moderately to severely decreased G4 15-29Severely decreased G5 <15Kidney failure The eGFR was calculated using the Chronic Kidney Disease Epidemiology Collaboration (CKD-EPI) equation. Interpretation is based on recommendations of the National Kidney Foundation-Kidney Disease Outcomes Quality Initiative (NKF-KDOQI) published in 2014. Specimen Blood Performing Organization Address City/State/Zipcode Phone Number [facility] [place] [address] PATHOLOGY AND GENOMIC MEDICINE [place] VOODOO[address] * POC creatinine (05/23/2018 10:40 AM SILVICULTURE PROFESSOR) Only the most recent of 2 results within the time period is included. Pathologist [facility] [place] POC creatinine 1.4 (H) 0.5 - 0.9 mg/dl [place] Comment: VOODOO Meter ID: [id number] [facility] Electrical Systems Designer: Marcello Bob Specimen Blood Performing Organization Address City/[facility]/Zipcode Phone Number [facility] [place] [address] PATHOLOGY AND GENOMIC MEDICINE [place] VOODOO[address] * ECG 12 lead (03/13/2018 7:53 AM SILVICULTURE PROFESSOR) Only the most recent of 4 results within the time period is included. Pathologist [facility] Ventricular 82 [facility] MUSE rate Atrial rate 89 [facility] M[facility] QRSD interval 84 [facility] QT interval 408 [facility] QTC interval 476 [facility] QRS axis 1 22 [facility] M[facility] T wave axis 155 [facility] MUSE EKG impression Sinus rhythm with 1st degree HM MUSE AV block-ST & T wave abnormality, consider lateral ischemia-Prolonged QT-Abnormal ECG-In automated comparison with ECG of 12-MAR-2018 05:01,-Junctional rhythm has replaced Sinus rhythm- Specimen Narrative Performed At Performing Organization Address City/[facility]/[place] [address] * CBC hemogram (03/13/2018 5:30 AM SILVICULTURE PROFESSOR) Only the most recent of 4 results within the time period is included. WBC 11.52 (H) 4.50 - 11.00 k/uL [facility] RBC 3.81 (L) 4.20 - 5.50 m/uL [facility] HGB 10.4 (L) 12.0 - 16.0 g/dL [facility] HCT 33.6 (L) 37.0 - 47.0 % [facility] MCV 88.2 82.0 - 100.0 fL [facility] MCH 27.3 27.0 - 34.0 pg [facility] MCHC 31.0 31.0 - 37.0 g/dL [facility] RDW - SD 44.7 37.0 - 55.0 fL [facility] MPV 10.5 8.8 - 13.2 fL [facility] Platelet count 457 (H) 150 - 400 k/uL [facility] Nucleated RBC 0.00 /100 WBC [facility] Specimen Blood Performing Organization Address [facility] Phone Number [facility] [place] [address] PATHOLOGY AND GENOMIC MEDICINE [address] * Phosphorus level (03/13/2018 12:00 AM SILVICULTURE PROFESSOR) Only the most recent of 6 results within the time period is included. Phosphorus 2.9 2.4 - 4.5 mg/dL [facility] Specimen Plasma specimen Performing Organization Address [facility] Phone Number [facility] [place] [address] PATHOLOGY AND GENOMIC MEDICINE [address] * Magnesium level (03/13/2018 12:00 AM SILVICULTURE PROFESSOR) Only the most recent of 8 results within the time period is included. Magnesium 2.1 1.6 - 2.4 mg/dL [facility] Specimen Plasma specimen Performing Organization Address [facility] Phone Number [facility] [place] [address] PATHOLOGY AND GENOMIC MEDICINE [address] * Ionized calcium (03/13/2018 12:00 AM SILVICULTURE PROFESSOR) Only the most recent of 5 results within the time period is included. pH 7.43 [facility] Ionized calcium 1.14 1.11 - 1.32 mmol/L [facility] Specimen Plasma specimen Performing Organization Address City/[facility] Phone Number [facility] [place] [address] PATHOLOGY AND GENOMIC MEDICINE [address] * Basic metabolic panel (03/13/2018 12:00 AM SILVICULTURE PROFESSOR) Only the most recent of 10 results within the time period is included. [facility] Sodium 136 135 - 148 mEq/L [facility] Potassium 4.3 3.5 - 5.0 mEq/L [facility] Chloride 97 (L) 98 - 112 mEq/L [facility] CO2 25 24 - 31 mEq/L [facility] Anion gap 14@ANIO 7 - 15 mEq/L [facility] BUN 15 8 - 23 mg/dL [facility] Creatinine 1.00 (H) 0.50 - 0.90 mg/dL [facility] Glucose 96 65 - 99 mg/dL [facility] Calcium 9.0 8.8 - 10.2 mg/dL [facility] Specimen Plasma specimen Performing Organization Address [facility] Phone Number [facility] [place] [address] PATHOLOGY AND GENOMIC MEDICINE [address] * POC glucose (03/12/2018 12:05 PM SILVICULTURE PROFESSOR) Only the most recent of 36 results within the time period is included. [facility] POC glucose 134 (H) 65 - 99 mg/dL [place] Comment: VOODOO [facility] Notified RN HOSPITAL Meter ID: [id number] Electrical Systems Designer: Silvana Robledo Specimen Performing Organization Address [facility] Phone Number [facility] [place] [address] PATHOLOGY AND GENOMIC MEDICINE [address] * XR Chest 1 Vw Portable (03/12/2018 6:04 AM SILVICULTURE PROFESSOR) Only the most recent of 5 results within the time period is included. Specimen Narrative Performed At EXAMINATION:XR CHEST 1 VW PORTABLE RADIANT CLINICAL HISTORY:ICU ptstable with no clinical status changes COMPARISON:Most Recent Prior at [facility] IMPRESSION: Hypoventilation with enlarged heart and sternotomy wires. Basilar consolidation and effusions stable. [facility]-[id number] Procedure Note Interface, Radiology Results Incoming - 03/12/2018 9:23 AM SILVICULTURE PROFESSOR EXAMINATION: XR CHEST 1 VW PORTABLE CLINICAL HISTORY: ICU pt stable with no clinical status changes COMPARISON: Most Recent Prior at [facility] IMPRESSION: Hypoventilation with enlarged heart and sternotomy wires. Basilar consolidation and effusions stable. [facility]-[id number] Performing Organization Address City/[facility]/[place] [address] * Partial thromboplastin time, activated (03/12/2018 1:40 AM SILVICULTURE PROFESSOR) Only the most recent of 3 results within the time period is included. PTT 34.7 23.0 - 36.0 sec [place] Comment: VOODOO PTT therapeutic range for HOSPITAL unfractionated heparin is 61.0-112.0 seconds which corresponds to Anti-Xa 0.3-0.7 U/ml. Specimen Blood Performing Organization Address [facility] Phone Number [facility] [place] [address] [address] * Prothrombin time with INR (03/12/2018 1:40 AM SILVICULTURE PROFESSOR) Only the most recent of 4 results within the time period is included. Pathologist [facility] Prothrombin 15.4 (H) 11.5 - 14.[address] [facility] [place] [place] INR 1.2 [place] Comment: VOODOO The International Normalized HOSPITAL Ratio (INR) is a therapeutic monitoring tool for patients who are stable on oral anticoagulant therapy. An INR of 2.0-3.0 is suggested for deep vein thrombosis/pulmonary embolism. Specimen Blood Performing Organization Address [facility] Phone Number [facility] [place] [address] PATHOLOGY AND [facility] [address] * Creatinine level (03/11/2018 4:28 PM SILVICULTURE PROFESSOR) Only the most recent of 2 results within the time period is included. Pathologist [facility] Creatinine 1.36 (H) 0.50 - 0.90 mg/dL [facility] Specimen Plasma specimen Performing Organization Address [facility] Phone Number [facility] [place] [address] PATHOLOGY AND [facility] [address] * Echocardiogram complete w contrast and 3D if needed (03/11/2018 3:59 PM SILVICULTURE PROFESSOR) Specimen Narrative Performed At [facility] Echocardiography Report [address] [place], [place] [address], [address]Name:BATSHEVA LOPEZ.ID:[id number] .Date: 03/11/2018Refer.MD:RICKY CARRIZALES MD Exam Time: 3:59:00 PMStudy Type:Routine Echo Height:64inWeight:197lb BSA: 1.95 m2 DOBAge:1950,67Y Sex: FEMALEBP:100/53 HR:82 bpmSonogrphr: Gael Davenport [facility] Pat. Stat.:Inpatient Room:[facility] Study Status:Final Echo Event ID:[id number] Order ID:[id number] Reason for Study:evaluate cardiac hematoma History / [...] to moderate tricuspidregurgitation MEASUREMENTS: 2D Parasternal [place] LVOT 2 cmLA Ds4.5 cm LVIDd5.3 cmIndex2.7 cm/m Ao An2.2 cm LVIDs4.4 cmAo Rtd 3.2 cm Index1.7 cm/m LV%fs 16.6 % LV Hhat220.2 g(87-129) IVSd 1.1 cmLVM Povdt510.6 g/m2 LVPWd1.2 cmRWT0.4 LV EF Biplane MEYSJ475.8 ml (59-136) Index75.3 ml/m HR84 bpm LVESV 91.6 ycBwvee93 ml/m LV CO4.6 l/min LV SV 55.2 mlLV CI2.4 l/m/m2 LV EF 37.6 %(55-75) DOPPLER LVOT Stroke Vol LVOT 2 cmLVOT CO3.2 l/min LVOT TVI12.1 cmLVOT CI1.7 l/m/m2 LVOT Tm258 ivsgEJ73 bpm LVOT SV 38 ml MV For Flow/Valve Assess MV pkVel 223.4 cm/sMV Dec T 198 msec MV pkPG 20 mmHgMV TVI39.1 cm MV Mean G5 mmHgMV Area P1/2t3.8 cm2(4-6) Signed 03/11/2018 06:20 PM Baljinder Benavidez MD Procedure Note Interface, Radiology Results In - 03/11/2018 6:20 PM [facility] Echocardiography Report [address] [facility], [place] [address], [place] [address] Pat.Name: BATSHEVA LOPEZ.ID: [id number] .Date: 03/11/2018 Refer.MD: RICKY CARRIZALES MD Exam Time: 3:59:00 PM Study Type:Routine Echo Height: 64in Weight: 197lb BSA: 1.95 m2 Age: 2 1950,67Y Sex: FEMALE BP: 100/53 HR: 82 bpm Sonogrphr: SHANNAN Alexandra Pat. Stat.:Inpatient Room: [facility] Study Status:Final Echo Event ID:[id number] Order ID: [id number] Reason for Study:evaluate cardiac hematoma History / [...] moderate tricuspid regurgitation MEASUREMENTS: 2D Parasternal [place] LVOT 2 cm LA Ds 4.5 cm [...] PM Baljinder Benavidez MD Performing Organization Address City/[facility]/Zipcode Phone Number [facility] [address] [place] [address] * Blood culture, aerobic & anaerobic (03/11/2018 2:40 PM SILVICULTURE PROFESSOR) Blood culture No growth after 5 days of [place] isolate incubation. [place] Comment: HOSPITAL Specimen Information Specimen Source: Blood Specimen Site: Antecubital Right Specimen Blood Performing Organization Address City/[facility]/Zipcode Phone Number [facility] DEPARTMENT [address] [place] [address] PATHOLOGY AND GENOMIC MEDICINE [place] VOODOO [address] [place] [address] HOSPITAL * Type and screen (03/11/2018 2:39 PM SILVICULTURE PROFESSOR) Only the most recent of 2 results within the time period is included. ABO grouping B [facility] Rh type POS [facility] Antibody screen NEG [place] (gel) [facility] Specimen Blood Performing Organization Address City/State/Zipcode Phone Number [facility] DEPARTMENT OF [address] [place] [address] PATHOLOGY AND GENOMIC MEDICINE [address] * Urinalysis screen and microscopy, with reflex to culture (03/11/2018 2:00 PM SILVICULTURE PROFESSOR) Only the most recent of 3 results within the time period is included. Specimen site Clean catch [facility] Color, UA Yellow [facility] Appearance, UA Clear [facility] Specific 1.027 1.001 - 1.035 [place] gravity, [facility] pH, UA 5.0 5.0 - 8.5 [facility] Protein, UA Negative Negative [facility] Glucose, UA Negative Negative [facility] Ketones, UA Negative Negative [facility] Bilirubin, UA Negative Negative [facility] Blood, UA Negative Negative [facility] Nitrite, UA Negative Negative [facility] Urobilinogen, <2.0 <2.0 [facility] Leukocyte Negative Negative [place] esterase, [facility] Epithelial 8 /HPF [place] cells, [facility] WBC, UA 3 0 - 4 /HPF [facility] RBC, UA None seen 0 - 5 /HPF [facility] Bacteria, UA None seen None seen [facility] Yeast, UA None seen [facility] Yeast with None seen [place] pseudohyphaeTHE [facility] Specimen Urine Performing Organization Address City/[facility]/Zipcode Phone Number [facility] DEPARTMENT OF [address] [place] [id number] PATHOLOGY AND GENOMIC MEDICINE [address] * Urine culture (03/11/2018 2:00 PM SILVICULTURE PROFESSOR) Only the most recent of 3 results within the time period is included. Urine culture SEE COMMENTComment: [place] Bacteriuria screen negative. [facility] Specimen Performing Organization Address City/[facility]/Zipcode Phone Number [facility] DEPARTMENT OF [address] [place] [address] PATHOLOGY AND GENOMIC MEDICINE [address] * CBC with platelet and differential (03/11/2018 6:48 AM SILVICULTURE PROFESSOR) Only the most recent of 8 results within the time period is included. Pathologist [facility] [place] WBC 16.80 (H) 4.50 - 11.00 k/uL [facility] RBC 3.80 (L) 4.20 - 5.50 m/uL [facility] HGB 10.4 (L) 12.0 - 16.0 g/dL [facility] HCT 33.9 (L) 37.0 - 47.0 % [facility] MCV 89.2 82.0 - 100.0 fL [facility] MCH 27.4 27.0 - 34.0 pg [facility] MCHC 30.7 (L) 31.0 - 37.0 g/dL [facility] RDW - SD 45.1 37.0 - 55.0 fL [facility] MPV 10.4 8.8 - 13.2 fL [facility] Platelet count 470 (H) 150 - 400 k/uL [facility] Nucleated RBC 0.00 /100 WBC [facility] Neutrophils 76.4 (H) 39.0 - 69.0 % [facility] Lymphocytes 12.5 (L) 25.0 - 45.0 % [facility] Monocytes 9.9 0.0 - 10.0 % [facility] Eosinophils 0.5 0.0 - 5.0 % [facility] Basophils 0.2 0.0 - 1.0 % [facility] Immature 0.5Comment: "Immature 0.0 - 1.0 % [place] granulocytes granulocytes" (promyelocytes, [place] myelocytes, metamyelocytes) [facility] Specimen Blood Performing Organization Address City/State/Zipcode Phone Number [facility] DEPARTMENT OF [address] [place] [address] PATHOLOGY AND GENOMIC MEDICINE [address] * Hepatic function panel (03/11/2018 4:00 AM SILVICULTURE PROFESSOR) Pathologist [facility] [place] Albumin 2.7 (L) 3.5 - 5.0 g/dL [facility] Total bilirubin 0.8 0.0 - 1.2 mg/dL [facility] Bilirubin 0.3 0.0 - 0.3 mg/dL [facility] Alkaline 109 (H) 35 - 104 U/L [place] phosphatase [facility] Protein 6.2 (L) 6.3 - 8.3 g/dL [place] Comment: [facility] 4.6-7.0 g/dL 1 week 4.4-7.6 g/dL 7 months-1year 5.1-7.3 g/dL 1-2 years5.6-7 .5 g/dL >3 years6.0-8 .0 g/dL 18-150 6.3-8.3 g/dL ALT 22 5 - 50 U/L [facility] AST 26 10 - 35 U/L [facility] Specimen Plasma specimen Performing Organization Address City/State/Zipcode Phone Number [facility] DEPARTMENT OF [address] [place] [address] PATHOLOGY AND GENOMIC MEDICINE [address] * Comprehensive metabolic panel (03/05/2018 4:00 AM SILVICULTURE PROFESSOR) Only the most recent of 3 results within the time period is included. Sodium 140 135 - 148 mEq/L [facility] Potassium 3.2 (L) 3.5 - 5.0 mEq/L [facility] Chloride 94 (L) 98 - 112 mEq/L [facility] CO2 28 24 - 31 mEq/L [facility] Anion gap 18@ANIO (H) 7 - 15 mEq/L [facility] BUN 16 8 - 23 mg/dL [facility] Creatinine 1.02 (H) 0.50 - 0.90 mg/dL [facility] Glucose 99 65 - 99 mg/dL [facility] Calcium 9.1 8.8 - 10.2 mg/dL [facility] Protein 6.5 6.3 - 8.3 g/dL [place] Comment: [facility] 4.6-7.0 g/dL 1 week 4.4-7.6 g/dL 7 months-1year 5.1-7.3 g/dL 1-2 years5.6-7 .5 g/dL >3 years6.0-8 .0 g/dL 18-150 6.3-8.3 g/dL Albumin 2.6 (L) 3.5 - 5.0 g/dL [facility] A/G ratio 0.7 0.7 - 3.8 [facility] Alkaline 127 (H) 35 - 104 U/L [place] phosphatase [facility] AST 35 10 - 35 U/L [facility] ALT 23 5 - 50 U/L [facility] Total bilirubin 1.2 0.0 - 1.2 mg/dL [facility] Specimen Plasma specimen Performing Organization Address City/State/Zipcode Phone Number [facility] DEPARTMENT OF [address] [place] [address] PATHOLOGY AND GENOMIC MEDICINE [address] * Echocardiogram complete w contrast and 3D if needed (03/01/2018 3:57 PM SILVICULTURE PROFESSOR) Specimen Narrative Performed At [facility] Echocardiography Report [id number] [facility], [facility] 9, [address]Name:BATSHEVA LOPEZ.ID:[id number] .Date: 03/01/2018 Refer.MD:BIN DC MD Exam Time: 3:13:00 PMStudy Type:Routine Echo Height:162cm Weight:94kg BSA: 1.98 m2 DOBAge:1950,67Y Sex: FEMALEBP:122/58 HR:95 bpmSonogrphr: SHANNAN Monroy Pat. Stat.:Inpatient Room:[facility] Study Status:Final Echo Event ID:[id number] Order ID:[id number] Reason for Study:post op MV replacement History [...] mmHgMV Area P1/2t2.6 cm2(4-6) 2D Parasternal [place] LVIDd5.3 cmIndex2.7 cm/m LV Fpxc565.6 g(87-129) IVSd 0.9 cmLVM Index 90.7 g/m2 LVPWd0.9 cmRWT0.4 Ao Rtd 3.3 cmIndex1.7 cm/m Signed 03/01/2018 07:05 PM Alonso Umana M.D. Procedure Note Interface, Radiology Results In - 03/01/2018 7:07 PM [facility] Echocardiography Report [id number] [facility].Name: BATSHEVA LOPEZ.ID: [id number] .Date: 03/01/2018 Refer.MD: BIN DC MD Exam Time: 3:13:00 PM Study Type:Routine Echo Height: 162cm Weight: 94kg BSA: 1.98 m2 Age: 2 1950,67Y Sex: FEMALE BP: 122/58 HR: 95 bpm Sonogrphr: Real Ferrera [facility] Pat. Stat.:Inpatient Room: [facility] Study Status:Final Echo Event ID:[id number] Order ID: [id number] Reason for Study:post op MV replacement History [...] P1/2t 2.6 cm2 (4-6) 2D Parasternal [place] LVIDd 5.3 cm Index 2.7 cm/m LV Mass 179.6 g (87-129) IVSd 0.9 cm LVM Index 90.7 g/m2 LVPWd 0.9 cm RWT 0.4 Ao Rtd 3.3 cm Index 1.7 cm/m Signed 03/01/2018 07:05 PM Alonso Umana M.D. Performing Organization Address [facility] Facility[facility] Phone Number [facility] [address] [place] [address] * US Renal (02/27/2018 5:20 PM SILVICULTURE PROFESSOR) Specimen Narrative Performed At EXAMINATION:US RENAL [facility] CLINICAL HISTORY:Renal failureacute (kidney injury) COMPARISON:No TECHNIQUE: [...] No stones or hydronephrosis on either side. [facility]-[id number] Procedure Note Interface, Radiology Results Incoming - 02/27/2018 5:56 PM SILVICULTURE PROFESSOR EXAMINATION: US RENAL CLINICAL HISTORY: Renal failure [...] No stones or hydronephrosis on either side. [facility]-[id number] Performing Organization Address [facility] Facilitycode Phone Number [facility] [address] [place] [address] * Urine eosinophils (02/27/2018 3:30 PM SILVICULTURE PROFESSOR) Eosinophils, NONE [facility] Specimen Performing Organization Address City/[facility]/Zipcode Phone Number [facility] DEPARTMENT OF [address] [place] [address] PATHOLOGY AND GENOMIC MEDICINE [address] * Urea nitrogen, urine, timed (02/27/2018 3:30 PM SILVICULTURE PROFESSOR) Urine urea 679 mg/dL [place] nitrogen [place] concentration [facility] Specimen Urine Performing Organization Address City/[facility] Facility[facility] Phone Number [facility] [place] [address] PATHOLOGY AND GENOMIC MEDICINE [address] * Sodium level, urine, timed (02/27/2018 3:30 PM SILVICULTURE PROFESSOR) Urine sodium <20 mEq/L [facility] Urine sodium SEE COMMENT [place] excretion Comment: [place] Varies with diet. HOSPITAL Unable to calculate excretion due to low analyte concentration. Specimen Urine Performing Organization Address [facility] Facilitycode Phone Number [facility] [place] [address] PATHOLOGY AND GENOMIC MEDICINE [address] * Creatinine level, urine, timed (02/27/2018 3:30 PM SILVICULTURE PROFESSOR) Urine 175 mg/dL [place] creatinine [facility] [place] Specimen Urine Performing Organization Address [facility] Phone Number [facility] [place] [address] PATHOLOGY AND GENOMIC MEDICINE [address] * Gram stain (02/27/2018 3:30 PM SILVICULTURE PROFESSOR) Gram stain Rare WBC's [place] result Occasional Gram negative rods [place] Comment: HOSPITAL Specimen Information Specimen Source: Urine Specimen Site: Clean catch Specimen Urine Performing Organization Address [facility] Facilitycode Phone Number [facility] [place] [address] PATHOLOGY AND GENOMIC MEDICINE [address] * Line/Drain Removal (02/26/2018 9:48 AM SILVICULTURE PROFESSOR) Narrative Performed At Gael Lopez Jr., PA-C [...] * Ionized calcium, arterial (02/25/2018 8:51 PM SILVICULTURE PROFESSOR) Only the most recent of 7 results within the time period is included. Ionized 1.01 (L) 1.11 - 1.32 mmol/L [facility] Specimen Blood Performing Organization Address City/[facility] Facilitycode Phone Number [facility] DEPARTMENT [address] * Arterial blood gas (02/25/2018 8:51 PM SILVICULTURE PROFESSOR) pH, arterial 7.38 7.35 - 7.45 [facility] pCO2, arterial 37 35 - 45 mmHg [facility] pO2, arterial 238 (H) 80 - 90 mmHg [facility] Bicarbonate, 21.5 21.0 - 28.0 mmol/L [facility] Base excess, -3 (L) -2 - 2 mEq/L [facility] O2 saturation, 100 95 - 100 % [facility] Specimen Blood Performing Organization Address City/[facility] Phone Number [facility] [place] [address] * Transfuse RBC (02/25/2018 8:13 PM SILVICULTURE PROFESSOR) Only the most recent of 2 results within the time period is included. * XR Chest 2 Vw (02/25/2018 7:46 PM SILVICULTURE PROFESSOR) Only the most recent of 2 results within the time period is included. Specimen Narrative Performed At EXAMINATION:XR CHEST 2 VW [...] the superior cavoatrial junction. Right IJ approach [place]i catheter tip projecting over the main pulmonary [...] who repeated the findings and verbalized understanding. [facility]-[id number] Procedure Note [facility], Radiology Results Incoming - 02/25/2018 7:57 PM SILVICULTURE PROFESSOR EXAMINATION: XR CHEST 2 VW CLINICAL HISTORY: [...] the superior cavoatrial junction. Right IJ approach [place]i catheter tip projecting over the main pulmonary [...] who repeated the findings and verbalized understanding. [facility]-[id number] Performing Organization Address City/[facility]/Zipcode Phone Number [facility] [address] [place] [address] * Sodium level, syringe (02/25/2018 7:10 PM SILVICULTURE PROFESSOR) Only the most recent of 6 results within the time period is included. Sodium, syringe 138 135 - 148 mEq/L [facility] Specimen Blood Performing Organization Address City/State/Zipcode Phone Number [facility] DEPARTMENT OF [address] [place] [address] PATHOLOGY [place] [address] HOSPITAL * Potassium, syringe (02/25/2018 7:10 PM SILVICULTURE PROFESSOR) Only the most recent of 6 results within the time period is included. Potassium, 3.7 3.5 - 5.0 mEq/L [facility] Specimen Blood Performing Organization Address City/[facility] Facility[facility] Phone Number [facility] [place] [address] PATHOLOGY AND GENOMIC MEDICINE [address] * Hemoglobin, syringe (02/25/2018 7:10 PM SILVICULTURE PROFESSOR) Only the most recent of 6 results within the time period is included. Hemoglobin, 7.8 (L) 12.0 - 16.0 g/dL [facility] Specimen Blood Performing Organization Address City/[facility] Facility[facility] Phone Number [facility] [place] [address] PATHOLOGY AND GENOMIC MEDICINE [address] * Glucose level, syringe (02/25/2018 7:10 PM SILVICULTURE PROFESSOR) Only the most recent of 6 results within the time period is included. Glucose, 164 (H) 65 - 99 mg/dL [facility] Specimen Blood Performing Organization Address [facility] Phone Number [facility] [place] [address] PATHOLOGY AND GENOMIC MEDICINE [address] * Arterial blood gas, corrected (02/25/2018 7:10 PM SILVICULTURE PROFESSOR) Only the most recent of 6 results within the time period is included. pH, arterial 7.38 7.35 - 7.45 [facility] pCO2, arterial 38 35 - 45 mmHg [facility] pO2, arterial 177 (H) 80 - 90 mmHg [facility] Temperature, 36.2 Degrees C [place] Celsius [facility] O2 saturation, 100 95 - 100 % [place] arterial [facility] pH, arterial 7.39 [place] corrected [facility] pCO2, arterial 37 mmHg [facility] HOSPITAL pO2, arterial 173 mmHg [facility] excess, -2 -2 - 2 mEq/L [place] arterial [facility] Specimen Blood Performing Organization Address City/[facility] Facilitycode Phone Number [facility] [place] [address] PATHOLOGY AND GENOMIC MEDICINE [address] * Fibrinogen (02/25/2018 7:10 PM SILVICULTURE PROFESSOR) Pathologist [facility] [place] Fibrinogen 272 200 - 450 mg/dL [facility] Specimen Blood Performing Organization Address City/[facility]code Phone Number [facility] DEPARTMENT OF [address] [place] [address] PATHOLOGY AND GENOMIC MEDICINE [address] * Platelet count (02/25/2018 7:10 PM SILVICULTURE PROFESSOR) [facility] Platelet count 121 (L) 150 - 400 k/uL [facility] Specimen Performing Organization Address City/[facility] Facilitycode Phone Number [facility] DEPARTMENT OF [address] [place] [address] PATHOLOGY AND GENOMIC MEDICINE [address] * Activated clotting time (02/25/2018 6:36 PM SILVICULTURE PROFESSOR) Only the most recent of 8 results within the time period is included. Pathologist [facility] [place] Activated 125 96 - 152 sec [place] clotting time Comment: [place] Meter ID: [id number] [facility] Electrical Systems Designer: Rosales Ferris Specimen Performing Organization Address [facility] Phone Number [facility] DEPARTMENT OF [address] [place] [address] PATHOLOGY AND GENOMIC MEDICINE [address] * Surgical pathology request (02/25/2018 9:10 AM SILVICULTURE PROFESSOR) Pathologist [facility] [place] [facility] DEPARTMENT OF PATHOLOGY AND GENOMIC MEDICINE Surgical See link below for PDF Lab [facility] DEPARTMENT pathology Report OF PATHOLOGY report AND GENOMIC MEDICINE Result status This is Final Report for [facility] DEPARTMENT [id number] OF PATHOLOGY AND GENOMIC MEDICINE Specimen Performing Organization Address City/[facility] Phone Number [facility] DEPARTMENT OF [address] [place] [address] PATHOLOGY AND GENOMIC MEDICINE * Iron level (02/21/2018 4:03 PM SILVICULTURE PROFESSOR) Pathologist [facility] [place] Iron level 82 37 - 145 ug/dL [facility] Specimen Plasma specimen Performing Organization Address City/[facility] Phone Number [facility] DEPARTMENT OF [address] [place] [address] PATHOLOGY AND GENOMIC MEDICINE [address] * Spirometry (02/21/2018 2:13 PM SILVICULTURE PROFESSOR) FEV1 Pre 0.82 1.36 - 2.57 L [facility] FEV1/FVC % Pre 47.28 67.72 - 89.08 % [facility] FVC Pre 1.74 1.81 - 3.23 L [facility] PEF Pre 1.24 3.24 - 7.25 L/s [facility] FEF 25-75% Pre 0.49 0.51 - 3.25 L/s [facility] FEV1 Predicted 1.97 [facility] FEV1 LLN 1.36 [facility] FEV1 % Pre of 41.9 % [facility] Predicted FVC Predicted 2.52 [facility] FVC LLN 1.81 [facility] FVC % Pre of 69.1 % [facility] Predicted FEV1/FVC % 78 [facility] Predicted FEV1/FVC % LLN 68 [facility] FEV1/FVC % Pre 60.3 % [facility] of Predicted FEF 25-75% 1.88 [facility] Predicted FEF 25-75% LLN 0.51 [facility] FEF 25-75% % 26.1 % [facility] Pre of Predicted PEF Predicted 5.25 [facility] PEF LLN 3.24 [facility] PEF % Pre of 23.7 % [facility] Predicted MIP Predicted 53.64 [facility] MIP LLN 24.21 [facility] MEP Predicted 66.95 [facility] MEP LLN 23.32 [facility] MVV Predicted 88 [facility] MVV LLN 75 [facility] Specimen Narrative Performed At Performing Organization Address City/State/Zipcode Phone Number [facility] [address] [place] [address] * ECG Pre/Post Op (02/21/2018 1:33 PM SILVICULTURE PROFESSOR) Ventricular 72 [facility] rate Atrial rate 72 [facility] AZ interval 158 [facility] QRSD interval 88 [facility] QT interval 444 [facility] QTC interval 486 [facility] P axis 1 19 [facility] QRS axis 1 67 [facility] T wave axis 0 [facility] EKG impression Normal sinus rhythm-Moderate [facility] voltage criteria for LVH, may be normal variant-Nonspecific T wave abnormality-Prolonged QT-Abnormal ECG- Specimen Narrative Performed At Performing Organization Address City/State/Zipcode Phone Number [facility] MUSE [address] [place] [address] * Prepare RBC (02/21/2018 1:30 PM SILVICULTURE PROFESSOR) Product name Red Blood Cells -1, Leukored [facility] Unit number [id number] [facility] Product code [id number] [facility] Dispense status Transfused [facility] Blood [id number] [place] expiration [facility] Blood type code 7300 [facility] Blood type B POSITIVE [facility] Product name Red Blood Cells -1, Leukored [facility] Unit number [id number] [facility] Product code [id number] [facility] Dispense status Transfused [facility] Blood [id number] [place] expiration [facility] Blood type code 7300 [facility] Blood type B POSITIVE [facility] Product name Red Cells AS1 Leukored Irrad [facility] Unit number [id number] [facility] Product code [id number] [facility] Dispense status Returned to BB not transfused [facility] Blood [id number] [place] expiration [facility] Blood type code 7300 [facility] Blood type B POSITIVE [facility] Product name Red Cells AS1 Leukored Irrad [facility] Unit number [id number] [facility] Product code [id number] [facility] Dispense status Returned to BB not transfused [facility] Blood [id number] [place] expiration [facility] Blood type code 7300 [facility] Blood type B POSITIVE [facility] Specimen Performing Organization Address City/State/Zipcode Phone Number [facility] DEPARTMENT OF [address] [place] [address] PATHOLOGY AND GENOMIC MEDICINE [address] [address] [facility] * Hemoglobin A1c (02/21/2018 1:29 PM SILVICULTURE PROFESSOR) Hemoglobin A1C 5.3 4.0 - 5.6 % [place] Comment: [place] HbA1c cutoffs for diagnosing HOSPITAL diabetes: 4.0% - 5.6%=normal 5.7% - 6.4%=increased risk for diabetes (prediabetes) >=6.5%=diabetes Goals for glycemic control (ADA 2016) < 7.0%Target for non adults with diabetes. More or less stringent targets may be appropriate for individual patients. <7.5% Target for Children and adolescents with type 1 diabetes. Specimen Blood Performing Organization Address City/State/Zipcode Phone Number [facility] [place] [address] PATHOLOGY AND GENOMIC MEDICINE [address] * Total iron binding capacity (02/21/2018 1:24 PM SILVICULTURE PROFESSOR) Iron level 83 37 - 145 ug/dL [facility] Iron binding 302 200 - 400 ug/dL [facility] % Saturation 27.5 15.0 - 38.0 % [facility] Specimen Plasma specimen Performing Organization Address [facility] Phone Number [facility] [place] [address] PATHOLOGY AND [facility]ICINE [address] * Folate level (02/21/2018 1:24 PM SILVICULTURE PROFESSOR) Folate 12.3 4.8 - 24.2 ng/mL [facility] Specimen Serum Performing Organization Address [facility] Phone Number [facility] [place] [address] PATHOLOGY AND [facility] [address] * Ferritin level (02/21/2018 1:24 PM SILVICULTURE PROFESSOR) Ferritin level 152 (H) 13 - 150 ng/mL [facility] Specimen Plasma specimen Performing Organization Address City/[facility] Phone Number [facility] [place] [address] PATHOLOGY AND [facility] [address] * Vitamin B12 level (02/21/2018 1:24 PM SILVICULTURE PROFESSOR) Vitamin B12 707 211 - 946 pg/mL [place] Comment: [place] Significant overlap exists HOSPITAL between normal and deficiency states. However, most patients with deficiencies will have Serum B12 <200 pg/mL. Specimen Serum Performing Organization Address City/[facility] Phone Number [facility] [place] [address] PATHOLOGY AND GENOMIC MEDICINE ELIUD MCKINNEY [address] [place] [address] HOSPITAL after 08/25/2017 Insurance Type Payer Benefit Subscriber ID Effective Phone Address Plan / Dates Group HMO BCBS RENAISSANC xxxxxxxxxxxx 2018- E HMO BLUE Present HMO TEXANPLUS TEXANPLUS xxxxxxxx 2018-P RAFFI lópez Advance Directives Patient has advance care planning documents on file. For more information, narendra gipson contact: Eliud Mckinney [address] [place] [address]
[2018-08-26] MEDS ORDERED: HYDROCODONE/APAP 10MG-325MG TAB PO ONE (10:30)
--- NOTE | 2018-08-26 11:23 | Diagnostic Imaging Report ---
EXAMINATION: CHEST 2 VIEWS INDICATION: Chest pain. COMPARISON: CT chest 05/08/2018 and chest radiograph 05/08/2018. FINDINGS: TUBES and LINES: Surgical clips project over the lower neck. LUNGS: Lungs are well inflated. There is no evidence of pneumonia or pulmonary edema. PLEURA: Interval resolution of small bilateral pleural effusions. No evidence of pneumothorax. HEART AND MEDIASTINUM: Interval decrease in cardiomegaly. BONES AND SOFT TISSUES: No acute osseous abnormality. Status post median sternotomy. UPPER ABDOMEN: No free air under the diaphragm. IMPRESSION: No acute radiographic abnormality. Signed by: Dr. Lucero Mercado MD on 08/26/2018 11:17 AM
[2018-08-26 11:52] LABS: BASOPHILS % 0.3 % (0.0-1.0); EOSINOPHILS % 0.4 % (0.0-6.0); HEMATOCRIT 42.3 % (34.2-44.1); HEMOGLOBIN 13.2 g/dL (12.0-16.0); LYMPHOCYTES % 28.6 % (18.0-39.1); MEAN CORPUSCULAR HEMOGLOBIN 27.3 pg (28-32); MEAN CORPUSCULAR HGB CONC 31.2 g/dL (31-35); MEAN CORPUSCULAR VOLUME 87.6 fL (81-99); MONOCYTES # (AUTO) 0.5 (0.2-0.8); NEUTROPHILS # (AUTO) 4.5 (2.1-6.9); NEUTROPHILS % 63.4 % (38.7-80.0); PLATELET COUNT 256 x10e3/uL (140-360); RED BLOOD COUNT 4.83 x10e6/uL (3.6-5.1); RED CELL DISTRIBUTION WIDTH 13.7 % (11.7-14.4)
[2018-08-26 12:08] LABS: BILIRUBIN,URINE NEGATIVE (NEGATIVE); CLARITY,URINE SL CLOUDY (CLEAR); COLOR,URINE YELLOW (YELLOW); KETONES,URINE NEGATIVE (NEGATIVE); LEUKOCYTE ESTERASE ,URINE NEGATIVE (NEGATIVE); NITRITE,URINE NEGATIVE (NEGATIVE); PROTEIN,URINE DIPSTICK TRACE (NEGATIVE); URINE UROBILINOGEN 0.2 mg/dL (0.2 - 1)
[2018-08-26 12:17] LABS: ALBUMIN 3.7 g/dL (3.5-5.0); ANION GAP 11.8 mmol/L (8-16); CALCIUM 9.9 mg/dL (8.4-10.2); CREATININE, SERUM 1.13 mg/dL (0.57-1.11); INR 0.93; POTASSIUM 3.8 mmol/L (3.5-5.1)
[2018-08-26 12:18] LABS: PARTIAL THROMBOPLASTIN TIME 33.4 seconds (23.8-35.5)
[2018-08-26 12:25] LABS: CREATINE KINASE MB 1.3 ng/mL (0-5.0)
[2018-08-26 12:57] LABS: EPITHELIAL CELLS,URINE RARE /LPF
== END 2018-08-26 14:02 | disposition home or self-care (01) ==
LOC: ER 09:57
DX: R07.89 Other chest pain (principal); I50.9 Heart failure, unspecified; I10 Essential (primary) hypertension; E78.5 Hyperlipidemia, unspecified; E07.9 Disorder of thyroid, unspecified; Z87.891 Personal history of nicotine dependence
CPT/HCPCS: 36415; 71046; 80053; 81001; 82550; 82553; 83880; 84484; 85025; 85610; 85730; 93005; 99283